=== PATIENT | male | born 1960 | race Caucasian/White ===

== ENCOUNTER 2024-05-10 12:54 | Inpatient (IN) | payer MEDICARE, SELFPAY ==
[2024-05-10] VITALS (30 sets, daily range): BP systolic 115–176; BP diastolic 69–159; PULSE 84–170; RESP 18–30; TEMP 36.4–36.6; O2SAT 83–99; BMI 38.9
--- NOTE | ~2024-05-10 | CT_ITS ---
CTA chest PE protocol Ordering provider: Albert Moyer History: 63 years Male with . afib rvr, hx PE . Comparison: None. Technique: CT angiogram chest was performed following timed intravenous injection of contrast. Thin s lice axial images and reformatted coronal images were obtained. Three dimensional reformatted images of the chest were also obtained using a [employer] workstation. . Automated exposure control and iterati ve reconstruction technique were employed. The dose-length product was 923.51 mGy-cm. 100 MLO Omnipaq ue 350 was given IV. Findings: PULMONARY ARTERIES: No pulmonary embolus. VISUALIZED THORACIC INLET: Normal. MEDIASTINUM: Aorta/coronary arteries: Mild atheromatous disease. Heart/other: The heart is not enlarged. Lymph nodes: Precarinal lymphadenopathy is seen with the largest measures 2 cm. Prevascular lymph nod es are also noted with the largest measures 1.8 cm. LUNGS: Moderate bilateral pleural effusion with adjacent atelectasis. No pulmonary nodules or masses. Focal areas of infiltrate seen in the left lower lobe laterally suggestive of pneumonia. Follow-up advised. . No pneumothorax. VISUALIZED UPPER ABDOMEN: the visualized upper abdomen is normal. MUSCULOSKELETAL: Soft tissues: The superficial soft tissues are normal. Bones: Age appropriate degenerative changes of the spine. IMPRESSION: 1. No pulmonary embolism. 2. Mediastinal lymphadenopathy. Clinical correlation advised. 3. Bilateral pleural effusion with adjacent atelectasis. Focal area of pneumonia in the left lower l obe laterally. Reviewed, dictated and finalized at location A. IMPRESSION: 1. No pulmonary embolism. 2. Mediastinal lymphadenopathy. Clinical correlation advised. 3. Bilateral pleural effusion with adjacent atelectasis. Focal area of pneumon ia in the left lower lobe laterally.
--- NOTE | ~2024-05-10 | US_ITS ---
BILATERAL LOWER EXTREMITY VENOUS ULTRASOUND Ordering provider: Albert Moyer MD History: . leg swelling, hx PE . Comparison: None. FINDINGS: RIGHT LOWER EXTREMITY VEINS: --COMMON FEMORAL: Patent and free of thrombus. Normal compressibility, phasic flow and augmentation. --PROXIMAL SUPERFICIAL FEMORAL: Patent and free of thrombus. Normal compressibility, phasic flow and augmentation. --DISTAL SUPERFICIAL FEMORAL: Patent and free of thrombus. Normal compressibility, phasic flow and au gmentation. --POPLITEAL: Patent and free of thrombus. Normal compressibility, phasic flow and augmentation. --POSTERIOR TIBIAL: Patent and free of thrombus. Normal compressibility, phasic flow and augmentation . LEFT LOWER EXTREMITY VEINS: --COMMON FEMORAL: Patent and free of thrombus. Normal compressibility, phasic flow and augmentation. --PROXIMAL SUPERFICIAL FEMORAL: Patent and free of thrombus. Normal compressibility, phasic flow and augmentation. --DISTAL SUPERFICIAL FEMORAL: Patent and free of thrombus. Normal compressibility, phasic flow and au gmentation. --POPLITEAL: Patent and free of thrombus. Normal compressibility, phasic flow and augmentation. --POSTERIOR TIBIAL: Patent and free of thrombus. Normal compressibility, phasic flow and augmentation . Bilateral Chisholm's cyst measuring 3.8x 1.5 x 1.3 cm on the right side and 6.1x. IMPRESSION: Negative bilateral lower extremity venous US. No deep vein thrombosis. Bilateral Chisholm's cyst. Reviewed, dictated and finalized at location A.
--- NOTE | ~2024-05-10 | XR_ITS ---
XR chest 1V portable Ordering provider: Jeffy Ge MD History: 63 years Male with . fluid overload . Comparison: May 10, 2024 FINDINGS: MEDIASTINUM: The cardiac silhouette is not enlarged. Congestive kathia. LUNGS: No effusions or pneumothorax. Bilateral interstitial changes which may indicate pulmonary eren a versus pneumonitis. OTHER: No free air under the diaphragm. IMPRESSION: Bilateral interstitial changes which may indicate pneumonitis versus pulmonary edema. Clinical correl ation advised. Reviewed, dictated and finalized at location A. IMPRESSION: Bilateral interstitial changes which may indicate pneumonitis versus pulmonary edema. Clinical correlation advised.
--- NOTE | ~2024-05-10 | XR_ITS ---
XR chest 2V Ordering provider: Alexsander Dick MD History: 63 years Male with . sob . Comparison: None. FINDINGS: MEDIASTINUM: The cardiac silhouette is slightly enlarged. Congestive kathia. LUNGS: No effusions or pneumothorax. Bilateral interstitial thickening. OTHER: No free air under the diaphragm. Degenerative changes of the spine. IMPRESSION: Cardiomegaly with cardiac decompensation and pulmonary edema. Pneumonitis is not excluded. Reviewed, dictated and finalized at location A. IMPRESSION: Cardiomegaly with cardiac decompensation and pulmonary edema. Pneumonitis is no t excluded.
--- NOTE | 2024-05-10 13:27 | ECG_ITS ---
Test Date: 2024-05-10 13:31:10 Measurements Intervals [place] Rate: 150 P: 0 ND: 0 QRS: 72 QRSD: 103 T: 66 QT: 295 QTc: 466 Interpretive Statements ATRIAL FLUTTER/TACHYCARDIA WITH RAPID VENTRICULAR RESPONSE WITH ABERRANT CONDUCTION OR VENTRICULAR PREMATURE COMPLEXES No previous ECG available for comparison Electronically Signed On 05-10-2024 15:06:48 CDT by Ravi Andujar M.D.
[2024-05-10 13:45] LABS: Basophils Percent Auto 0.6 % (0.2-1.2); Eosinophils Absolute Auto 0.3 K/mm3 (0-0.3); Eosinophils Percent Auto 3.6 % (0-4.4); Hematocrit 37.5 % (42.0-52.0); Hemoglobin 12.2 g/dL (14.0-18.0); Immature Granulocyte Absolute 0.02 K/mm3 (0.00-0.031); Immature Granulocyte Percent A 0.3 % (0-0.5); Lymphocytes Absolute Auto 1.34 K/mm3 (0.9-3.2); Lymphocytes Percent Auto 19.2 % (18.3-44.2); Mean Corpuscular HGB Conc 32.5 g/dl (32-36); Mean Corpuscular Hemoglobin 32.6 pg (26-34); Mean Corpuscular Volume 100.3 fl (80-100); Mean Platelet Volume 9.7 fl (7.4-10.4); Monocytes Absolute Auto 0.5 K/mm3 (0.1-0.6); Monocytes Percent Auto 7.2 % (2.6-8.5); Neutrophils Absolute Auto 4.8 K/mm3 (1.3-6.7); Neutrophils Percent Auto 69.1 % (45.5-73.1); Platelet Count Result 199 k/mm3 (150-375); Red Blood Count 3.74 M/mm3 (4.6-6.20); Red Cell Distribution Width 13.8 % (11.5-14.5)
[2024-05-10 13:58] LABS: Alanine Aminotransferase 70 U/L (6-50); Alkaline Phosphatase 57 U/L (38-126); Anion Gap 10 mmol/L (4-12); Aspartate Amino Transferase 30 U/L (17-59); Bilirubin,Total 0.3 mg/dL (0.2-1.3); Blood Urea Nitrogen 19 mg/dL (9-20); Calcium 9.5 mg/dL (8.4-10.2); Carbon Dioxide 25 mmol/L (22-30); Chloride 104 mmol/L (98-107); Estimated CRCL calculation 103 ml/min; Estimated Glomerular Filt Rate > 60; Glucose 119 mg/dL (65-110); Potassium 4.5 mmol/L (3.4-5.0); Sodium 139 mmol/L (137-145)
--- NOTE | 2024-05-10 14:03 | ED_ITS ---
HPI - SOB/Dyspnea General Chief Complaint: Shortness of Breath/Dyspnea Stated Complaint: c/o dyspnea, swelling and cough Time Seen by Provider: 05/10/24 13:32 History of Present Illness HPI Narrative: 63-year-old male presenting to the emergency department for evaluation of shortness of breath and exertional dyspnea. Patient has a remote history of a provoked pulmonary embolism but presently not taking anticoagulation medications. No history of DVT. No history of heart failure or coronary disease to his knowledge. He states for last week he has been having exertional dyspnea and feelings when to pass out with minimal exertion. In triage patient is noted have a normal pulse rate however rapidly converted to what appears to be atrial fibrillation/atrial flutter with rapid ventricular response. He was brought back to room 5 for treatment and evaluation as a medical resuscitation at this time. Patient denies any chest pain, no vision changes, nausea, vomiting, abdominal pain, back pain. He endorses left leg swelling for the last week. Not presently taking anticoagulation medications. Related Data Home Medications ?Medication ?Instructions ?Recorded ?Confirmed ?Last Taken ?Type No Home Medications 05/10/24 05/10/24 Unknown History Allergies Allergy/AdvReac Type Severity Reaction Status Date / Time No Known Allergies Allergy Verified 05/10/24 13:50 Review of Systems 2 Review of Systems: As reviewed above in HPI [facility] Family History Family History (Updated 05/10/24 @ 20:49 by Kathleen Phillips RN) Father History of heart artery stent Social History Social History Smoking status: Current every day smoker Smokeless tobacco user: other Additional smoking assessment comments: Marijuana Alcohol intake: former Substance use: former Do You Feel Safe in your Home?: Yes Lack of Transportation: No Lack of Food: Never True Current Housing: I Have Housing Concerned About Future Housing: No Difficulty Paying Gas/Electric Bills: No Difficulty Paying for Meds: No Currently Unemployed: No Education: Trade/Vocational Certificate Difficulty w/ Childcare or Family Care: No Spiritual care concerns: No Exam 2 Narrative: GENERAL: [Well-appearing, well-nourished, and in no acute distress.] HEAD: [Normocephalic, atraumatic.] EYES: [PERRLA and EOMI.] ENT: Nares clear, no rhinorrhea or epistaxis. Mucous membranes moist. NECK: Supple. CHEST: Coarse bibasilar breath sounds, mild tachypnea, no wheezing or prolonged expiratory phase. HEART: Tachycardic rate with a regular rhythm. No murmur heard. [Normal peripheral pulses.] ABDOMEN: [Soft, nondistended], [nontender], [No rigidity or guarding] EXTREMITIES: Normal range of motion. Left lower extremity edema 2+ pitting compared to the right 1+ pitting SKIN: Warm, dry, no rash. NEURO: [No focal deficits]. Alert and oriented [x3.] PSYCH: [Normal mood and affect.] Course Vital Signs Vital signs: Vital Signs Temperature 36.5 C 05/10/24 13:09 Pulse Rate 84 05/10/24 13:09 Respiratory Rate 26 H 05/10/24 13:09 Blood Pressure 144/96 H 05/10/24 13:09 Pulse Oximetry 98 05/10/24 13:09 Oxygen Delivery Room Air 05/10/24 13:09 Temperature 36.6 C 05/10/24 20:36 Pulse Rate 117 H 05/10/24 21:06 Respiratory Rate 18 05/10/24 20:36 Blood Pressure 115/69 05/10/24 20:36 Pulse Oximetry 96 05/10/24 20:36 Oxygen Delivery Room Air 05/10/24 13:45 Procedures Other Procedure Procedure 1: Other Procedure: Procedure: Bedside echocardiogram Indication: New onset heart failure Narrative: For different views of the cardiac chambers were obtained including parasternal long, parasternal short, subxiphoid and apical four-chamber. Patient has a severely reduced ejection fraction globally of approximately 20% give her a take. No pericardial effusions. No right ventricular bowling. Plethoric and noncollapsible IVC. Procedure 2: Other Procedure: Procedure: Thoracic ultrasound Indication: New onset heart failure Narrative: Bilateral chest cavity ultrasound obtained with views of sub diaphragmatic space and phrenic space. Pleural effusions were identified bilaterally with potential infectious consolidation appearance in the left chest cavity. B-lines were appreciated throughout bilateral lung plasencia consistent with pulmonary edema. No signs of pneumothorax, lung sliding present bilaterally. MDM - SOB/Dyspnea MDM Narrative Medical decision making narrative: 63-year-old male with past medical history including provoked pulmonary embolism currently not taking anticoagulation, no history of coronary disease, congestive heart failure. Patient presents with exertional dyspnea and shortness a breath as well as presyncope. He is found to be in atrial flutter with 2-1 response rapid ventricular. On examination he is otherwise well-appearing but slightly tachypneic. Not any acute distress, mentating appropriately. No chest pain. He has lower extremity edema left worse than right, no signs of cellulitis. Coarse breath sounds. Bedside echocardiogram shows a severely reduced ejection fraction about 15% globally, distended plethoric IVC, no respiratory variation. No pericardial effusion. No right ventricular strain noted. Given his severely reduced ejection fraction and rapid ventricular response heart rate considerations for amiodarone load at this time. Amnio bolus and infusions ordered, heparin drip ordered. Considerations presently are for new onset congestive heart failure, fluid overload, pulmonary embolism, paroxysmal atrial fibrillation/atrial flutter. Low suspicion acute aortic syndrome or acute coronary syndrome. Serial troponins, BNP, chest x-ray, EKG, CT angiography ordered. Consult was placed to Cardiology Dr. Andujar and we discussed patient's case over the phone with recommendations to continue heparin and amiodarone while workup underway. Patient placed on classroom monitor and re-evaluated frequently. Doppler ultrasound of his lower extremities also ordered and TSH added. Patient's workup reveals no leukocytosis, hemoglobin of 12.2 with no baseline. Normal platelet count. Coagulation panel within normal limits. Normal electrolytes, normal LFTs, normal renal function. Normal glucose. Troponin elevation of 0.062, slight elevation on repeat 3 hour 0.064. BNP elevated to 2190 consistent with his heart failure symptoms. Normal TSH. CT angiography shows no PE, some mediastinal lymphadenopathy which is nonspecific. Bilateral pleural effusions and a focal area pneumonia left lower lobe. Patient started on community-acquired antibiotic coverage including doxycycline and Rocephin. Patient's Doppler ultrasound shows Chisholm's cysts but no evidence of DVT. Chest x-ray shows cardiomegaly with cardiac decompensation pulmonary edema consistent with his physical exam findings and history. Patient received bolus doses of amiodarone after consultation with Cardiology. Maintenance infusion of amiodarone started. Patient's heart rate slowly came down during the next several hours here in the emergency department and he was now however in the 120-130 pulse rate. Repeat EKG shows atrial flutter with a heart rate of 112, no ST segment elevations or depressions. Patient frequent re-evaluated with improvement in symptoms after rate control. Remain in atrial fibrillation/atrial flutter. He was started on appropriate antibiotic coverage for his pneumonia, given Lasix for his decompensated new onset heart failure, consults were placed and patient was admitted to the hospital under the intermediate care unit. Spoke to the hospitalist team currently being covered by the midlevel provider and patient was accepted to the hospital at this time. Medical Records Attestation: I reviewed the patient's medical records. Lab Data Attestation: I reviewed the patient's lab results. 05/10/24 13:40 05/10/24 13:40 Labs: Lab Results 05/10/24 05/10/24 Range/Units 13:40 15:45 WBC 7.0 (4.5-10.0) K/mm3 RBC 3.74 L (4.6-6.20) M/mm3 Hgb 12.2 L (14.0-18.0) g/dL Hct 37.5 L (42.0-52.0) % MCV 100.3 H (80-100) fl MCH 32.6 (26-34) pg MCHC 32.5 (32-36) g/dl RDW 13.8 (11.5-14.5) % Plt Count 199 (150-375) k/mm3 MPV 9.7 (7.4-10.4) fl Immature Gran % (Auto) 0.3 (0-0.5) % Neut % (Auto) 69.1 (45.5-73.1) % Lymph % (Auto) 19.2 (18.3-44.2) % Coal % (Auto) 7.2 (2.6-8.5) % Eos % (Auto) 3.6 (0-4.4) % Baso % (Auto) 0.6 (0.2-1.2) % Lymph # (Auto) 1.34 (0.9-3.2) K/mm3 Coal # (Auto) 0.5 (0.1-0.6) K/mm3 Eos # (Auto) 0.3 (0-0.3) K/mm3 Baso # (Auto) 0.0 (0.0-0.1) K/mm3 Abs Immat Gran (auto) 0.02 (0.00-0.031) K/mm3 Absolute Neuts (auto) 4.8 (1.3-6.7) K/mm3 Absolute Nucleated RBC 0.000 (0.0-0.012) K/mm3 Nucleated RBC % 0.0 (0.0-0.2) % PT 13.4 (11.1-14.7) Seconds INR 1.0 APTT 26.9 (22.3-36.8) Seconds Sodium 139 (137-145) mmol/L Potassium 4.5 (3.4-5.0) mmol/L Chloride 104 (98-107) mmol/L Carbon Dioxide 25 (22-30) mmol/L Anion Gap 10 (4-12) mmol/L BUN 19 (9-20) mg/dL Creatinine 0.97 (0.7-1.3) mg/dL Estim Creat Clear Calc 103 ml/min Estimated GFR > 60 (59 - ) Glucose 119 H (65-110) mg/dL Calcium 9.5 (8.4-10.2) mg/dL Total Bilirubin 0.3 (0.2-1.3) mg/dL AST 30 (17-59) U/L ALT 70 H (6-50) U/L Alkaline Phosphatase 57 (38-126) U/L Troponin I 0.062 H* 0.064 H* (0.000-0.034) ng/mL NT-Pro-B Natriuret Pep 2190 H (19.9-100) pg/mL Total Protein 7.0 (6.3-8.2) g/dL Albumin 4.0 (3.5-5.1) g/dL TSH (Reflex) 1.860 (0.465-4.68) uIU/mL Imaging Data Attestation: I personally reviewed and interpreted this imaging study as follows: My impression: Impressions Chest CTA 05/10/24 14:19 IMPRESSION: 1. No pulmonary embolism. 2. Mediastinal lymphadenopathy. Clinical correlation advised. 3. Bilateral pleural effusion with adjacent atelectasis. Focal area of pneumonia in the left lower lobe laterally. Venous Doppler Study 05/10/24 14:50 IMPRESSION: Negative bilateral lower extremity venous US. No deep vein thrombosis. Bilateral Chisholm's cyst. Chest X-Ray 05/10/24 14:54 IMPRESSION: Cardiomegaly with cardiac decompensation and pulmonary edema. Pneumonitis is not excluded. Critical Care Time Critical Care Time Critical Care Time: Yes Total Critical Care Time: 105 (Critical care time is exclusive of the separately billed procedures above) Discharge Plan Discharge Clinical Impression: Acute decompensated heart failure, Community acquired pneumonia, New onset of congestive heart failure, Atrial flutter with rapid ventricular response, Bilateral pleural effusion, Acute dyspnea, Non-STEMI (non-ST elevated myocardial infarction) Patient Disposition: Still a Patient Condition: Serious Time of Disposition: 17:11
--- NOTE | 2024-05-10 14:09 | PC.NURSE ---
RN attempted to give meds. Cat scan wheeled pt for scans. Will give meds upon arrival back to rm 5.
--- OUTSIDE RECORDS SUMMARY | 2024-05-10 14:12 | XMS_ITS | Patient Health Record ---
[facility] Organization [facility] Address [address] [place] [address] Care Team Providers Care Magento Web Developer Name Role Phone Bal Gibbs Primary Care Provider Reason For Referral No Information Medications Medication SIG (Take, Route, Frequency, Duration) Notes Start Date End Date Status hydrOXYzine Pamoate 100 MG Orally Active Gabapentin 600 MG 1 tablet Orally Once a day Active Multi Complete - Orally Act marina Folic Acid 800 MCG 1 tablet Orally Once a day Active traZODone HCl 50 MG 1-2 tablet Orally at bedtime as needed for 30 day(s) 05/29/2017 Active Thiamine HCl 100 MG 1 tablet Orally Once a day Active Naltrexone HCl 50 MG 1 tablet Orally Onc e a day for 07 days 05/29/2017 Active Social History Alcohol Screen (Audit-C) Question Answer Notes Did you have a drink containing alcohol in the p ast year? 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
[2024-05-10 14:13] LABS: Prothrombin Time 13.4 Seconds (11.1-14.7)
--- NOTE | 2024-05-10 14:13 | PC.NURSE ---
RN spoke to pt friend Shanell and agreed to contact her with pt changes.
[2024-05-10 14:14] LABS: Partial Thromboplastin Time 26.9 Seconds (22.3-36.8)
--- NOTE | 2024-05-10 14:29 | PC.NURSE ---
Pt taken to CT scan, XR and US at this time
[2024-05-10 14:41] LABS: NT Pro B Type Natriuretic Pept 2190 pg/mL (19.9-100); Troponin I 0.062 ng/mL (0.000-0.034)
[2024-05-10] MEDS: AMIODARONE 150 MG/D5W 100 ML 150 MG/100 ML BAG 600 MG IV CONT ×3 (15:13→16:26)
[2024-05-10] MEDS: AMIODARONE 360 MG/D5W 200 ML 360 MG/200 ML BAG 33.33 MG IV CONT (15:36)
[2024-05-10] MEDS: FUROSEMIDE INJ 40 MG/4 ML VIAL IV PUSH (15:36)
[2024-05-10] MEDS: HEPARIN SODIUM 5,000 UNITS/ML VIAL 8500 UNITS IV PUSH ×2 (15:47→22:44)
[2024-05-10] MEDS: HEPARIN SOD/D5W 100 UNITS/ML 25,000 UNITS/250 ML BAG 15 UNITS IV CONT (15:50)
[2024-05-10] MEDS: DOXYCYCLINE HYCLATE 100 MG TABLET PO (15:57)
[2024-05-10 16:16] LABS: Troponin I 0.064 ng/mL (0.000-0.034)
--- OUTSIDE RECORDS SUMMARY | 2024-05-10 17:02 | XMS_ITS | Referral Summary ---
Author Organization [facility] Address [address] [place] [address] Care Team Providers Care Fuel Conversion Technician Name Role Phone Fitz Cardona Primary Care Provider + Allergies No known active allergies Medications Ventolin HFA 90 mcg/actuation inhaler INL 2 PFS PO TID UTD 04/18/2019 Active lisinopril-hydr oCHLOROthiazide (ZESTORETIC) 10-12.5 mg per tablet 05/11/2019 Active omeprazole (PriLOSEC) 20 mg capsule TK 1 C PO BID 30 MINUTES B MEALS 04/18/2019 Active Active Problems Problem Noted Date Diagnosed Date Opioid withdrawal 06/03/2017 Irritability and anger 01/09/2014 Overview (06/05/2016): Irritability and anger Hypertension 01/09/2014 Overview (06/05/2016): Hypertension Low back pain 01/09/2014 Overview (06/05/2016): Lumbago Immunizations Immunization Administration Dates Next Due Influenza, Quadrivalent, Spl it, Preservative Free, Intramuscular 01/02/2017 Influenza, Split 03/15/2013 Influenza, Trivalent, Split, Preservative Free, Intradermal 01/09/2014 Social History Tobacco Use Types Packs/Day Years Used Date Smoking Tobacco: Never Smokeless Tobacco: Never Alcohol Use Standard Drinks/Week Comments No 0 (1 standard drink = 0.6 oz pur e alcohol) hasnt drank in 2 years Sex and Gender Information Value Date Recorded Sex Assigned at Not on file 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 Gender Identity Not on file Sexual Orientation Not on file Last Filed Vital Signs Vital Sign Reading Time Taken Comments Blood Pressure 165/93 06/06/2017 8:33 AM CDT Pulse 88 06/06/2017 8:33 AM CDT Temperature 35.6 C (96.1 F) 06/06/2017 8:33 AM CDT Respiratory Rate 17 06/06/2017 8:33 AM CDT Oxygen Saturation 99% 06/06/2017 8:33 AM CDT Inhaled Oxygen Concentration - - Weight 142.9 kg (315 lb) 05/16/2019 8:41 AM CDT Height 188 cm (6' 2 ) 05/16/2019 8:41 AM CDT Body Mass Index 40.44 05/16/2019 8:41 AM CDT Plan of Treatment Not on file Insurance [place] [address] [address] [place] [address] MEDICARE Advance Directives For more information, please contact: [phone] * Full Code (Latest Code Status on File) Date Activated Date Inactivated Comments 06/03/2017 2:00 PM 06/06/2017 11:37 AM Care Teams Fuel Conversion Technician Relationship Specialty Start Date End Date Fitz Cardona PA [address] [place] [address] PCP - General Internal Medicine 04/11/19
--- OUTSIDE RECORDS SUMMARY | 2024-05-10 17:02 | XMS_ITS | Clinical Summary ---
Author Organization [facility] Address [address] [place] [address] Care Team Providers Care Slab Installer Name Role Phone Fitz Cardona Primary Care [...] Influenza, Trivalent, Split, Preservative Free, Intradermal 01/09/2014 Surgical History Surgery Date Site/Laterality Comments KNEE SURGERY 1998 Knee surgery HAND SURGERY hand surgery KNEE ARTHROSCOPY 2002 Right Arthroscopy knee Medical History Medical History Date Comments Hx Other Medical Right hand erasto nstruction 2nd 3rd digit. Hypertension Hypertension Hyperlipidemia Hyperlipidemia Osteoarthritis Osteoarthritis Family History Medical History Relation Name Comments Bladder Cancer Father Cancer, bladd er; Heart disease Father Memory loss Father COPD Mother COPD; Cancer Mother Lung cancer Mother Cancer -lung; C ause of : Cancer -lung Cancer Other 1 Family history of Cancer; Diabetes Other 2 Family history of Diabetes mellitus; Heart disease Other 3 Family history of Heart disease; Hypertension Other 4 Family history of Hypertension; Osteoarthritis Other 5 Family histor y of Osteoarthritis; Relation Name Status Comments Father Mother (Age 56) Other 1 Other 2 Other 3 Other 4 Other 5 Social History Tobacco Use Types Packs/Day Years Used Date Smoking Tobacco: Never Smokeless Tobacco: Never Alcohol Use Standard Drinks/Week Comments No 0 (1 standard drink = 0.6 oz pur e alcohol) hasnt drank in 2 years Sex and Gender Information Value Date Recorded Sex Assigned at Not on file 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
--- OUTSIDE RECORDS SUMMARY | 2024-05-10 17:02 | XMS_ITS | CONTINUITY OF CARE DOCUMENT ---
Author Name aj rocha Address Unknown Organization [facility] Address [address] [place] [address] Phone [phone] Care Team Providers Care Systems Programmer Name Role Phone Kel Stroud MD Unavailable [phone] Kel Stroud MD Unavailable [phone] INSURANCE PROVIDERS Payer name Policy type / Coverage type [place] red green party ID HUMANA PPO O [id number]
--- NOTE | 2024-05-10 17:11 | ECG_ITS ---
Test Date: 2024-05-10 18:21:26 Measurements Intervals [place] Rate: 112 P: 0 [place]: 0 QRS: 70 QRSD: 110 T: 72 QT: 344 QTc: 470 Interpretive Statements ATRIAL FLUTTER/TACHYCARDIA WITH RAPID VENTRICULAR RESPONSE WITH ABERRANT CONDUCTION OR VENTRICULAR PREMATURE COMPLEXES Compared to ECG 05/10/2024 13:31:10 No significant changes Electronically Signed On 05-11-2024 13:23:16 CDT by Ravi Andujar M.D.
--- NOTE | 2024-05-10 18:54 | PC.NURSE ---
Patient arrived from [facility]/. Tele applied. Admission started.
--- OUTSIDE RECORDS SUMMARY | 2024-05-10 18:54 | XMS_ITS | CONTINUITY OF CARE DOCUMENT ---
Author Name aj rocha Address Unknown Organization [facility] Address [address] [place] [address] Phone [phone] Care Team Providers Care Out Patient Therapist Name Role Phone Kel Stroud MD Unavailable [phone] Kel Stroud MD Unavailable INSURANCE PROVIDERS Payer name Policy type / Coverage type [place] red green party ID HUMANA PPO O [id number]
--- OUTSIDE RECORDS SUMMARY | 2024-05-10 18:54 | XMS_ITS | Clinical Summary ---
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
--- OUTSIDE RECORDS SUMMARY | 2024-05-10 18:54 | XMS_ITS | CONTINUITY OF CARE DOCUMENT ---
Author Name aj rocha Address Unknown Organization [facility] Address [address] [place] [address] Phone [phone] Care Team Providers Care Medical Technologist Generalist Name Role Phone Kel Stroud MD Unavailable [phone] Kel Stroud MD Unavailable [phone] INSURANCE PROVIDERS Payer name Policy type / Coverage type [place] red green party ID HUMANA PPO O [id number]
--- OUTSIDE RECORDS SUMMARY | 2024-05-10 18:54 | XMS_ITS | Referral Summary ---
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
[2024-05-10] MEDS: AMIODARONE 360 MG/D5W 200 ML 360 MG/200 ML BAG 16.67 MG IV CONT (21:06)
[2024-05-10] MEDS: IPRATROPIUM 0.5 MG/ALBUTEROL SULFATE 2.5 MG AMPUL.NEB 3 ML INHALATION (21:25)
[2024-05-10 22:29] LABS: Partial Thromboplastin Time 45.8 Seconds (22.3-36.8)
[2024-05-11] VITALS (30 sets, daily range): BP systolic 94–163; BP diastolic 36–98; PULSE 112–147; RESP 16–26; TEMP 36.4–36.9; O2SAT 93–100
[2024-05-11] MEDS: IPRATROPIUM 0.5 MG/ALBUTEROL SULFATE 2.5 MG AMPUL.NEB 3 ML INHALATION (02:30)
--- NOTE | 2024-05-11 03:21 | P.HP_ITS ---
H&P: HPI History of Present Illness Date/Time: 05/11/24 03:21 Chief Complaint: Shortness of breath/dyspnea Narrative: This is a 63-year-old male with a significant past medical history of hyperlipidemia, hypertension, asthma, kidney stones, arthritis who presented to the hospital with complaints of shortness of breath and dyspnea. Patient states that for the last week he has had dyspnea with exertion and feeling like he was going to pass out. He has not taken any of his home medications and at least 3 weeks as he was getting this as a mail order [facility] the [facility] and it became too much of a hassle. Workup in the hospital included chest CTA which was negative for PE, mediastinal lymphadenopathy, bilateral pleural effusion with adjacent atelectasis, focal area of pneumonia in the left lower lobe laterally. Bilateral venous Doppler was negative for DVT however did show bilateral Chisholm cyst. Chest x-ray showed cardiomegaly with cardiac decompensation and pulmonary edema, pneumonitis is not excluded. Initial labs showed a normal white blood cell count of 7.0, hemoglobin 12.2, INR 1.0, ALT 70, troponin 0.064> 0.068, proBNP 2190, TSH 1.860. EKG showed atrial flutter with RVR with a rate of 150, QTC 466. Patient was given an amiodarone bolus and started on amiodarone infusion along with heparin infusion, given 40 mg of Lasix, Rocephin, doxycycline, and Xopenex nebulized breathing treatment while in the ED. cardiology was consulted. Review of Systems Review of Systems: All systems reviewed & are unremarkable except as noted in HPI and below PMFSH Past Medical History Medical History Asthma Arthritis Kidney stones Hyperlipidemia Hypertension Surgical History Surgical History H/O knee surgery Family History Family History Father History of heart artery stent Social History Social History Smoking status: Current every day smoker Smokeless tobacco user: other Additional smoking assessment comments: Marijuana Alcohol intake: former Substance use: former Do You Feel Safe in your Home?: Yes Lack of Transportation: No Lack of Food: Never True Current Housing: I Have Housing Concerned About Future Housing: No Difficulty Paying Gas/Electric Bills: No Difficulty Paying for Meds: No Currently Unemployed: No Education: Trade/Vocational Certificate Difficulty w/ Childcare or Family Care: No Spiritual care concerns: No Meds Home Medications and Allergies Home Medications ?Medication ?Instructions ?Recorded ?Confirmed ?Type No Home Medications 05/10/24 05/10/24 History Allergies Allergy/AdvReac Type Severity Reaction Status Date / Time No Known Allergies Allergy Verified 05/10/24 13:50 Vital Signs Vital Signs - 24 hr 05/10/24 13:09 05/10/24 13:25 05/10/24 13:36 Temperature 97.7 F Pulse Rate 84 151 H Respiratory Rate 26 H 28 H Blood Pressure 144/96 H 126/102 H Pulse Oximetry 98 99 95 Oxygen Delivery Room Air Room Air Fraction of Inspired Oxygen 05/10/24 13:45 05/10/24 14:01 05/10/24 14:12 Temperature 98 F Pulse Rate 150 H 149 H 150 H Respiratory Rate 23 H 30 H Blood Pressure 131/96 H 131/91 H Pulse Oximetry 95 97 Oxygen Delivery Room Air Fraction of Inspired Oxygen 05/10/24 15:13 05/10/24 15:18 05/10/24 15:18 Temperature Pulse Rate 147 H 151 H 151 H Respiratory Rate Blood Pressure Pulse Oximetry Oxygen Delivery Fraction of Inspired Oxygen 05/10/24 15:36 05/10/24 15:48 05/10/24 15:59 Temperature Pulse Rate 144 H 141 H 148 H Respiratory Rate 30 H Blood Pressure 132/114 H 141/89 H Pulse Oximetry 94 Oxygen Delivery Fraction of Inspired Oxygen 05/10/24 16:00 05/10/24 16:26 05/10/24 16:54 Temperature Pulse Rate 142 H 148 H 145 H Respiratory Rate 20 Blood Pressure 141/89 H 144/99 H Pulse Oximetry 95 Oxygen Delivery Fraction of Inspired Oxygen 05/10/24 17:06 05/10/24 17:48 05/10/24 18:03 Temperature Pulse Rate 145 H 123 H 127 H Respiratory Rate 21 H 20 Blood Pressure 145/124 H 176/159 H Pulse Oximetry 83 L Oxygen Delivery Fraction of Inspired Oxygen 05/10/24 18:13 05/10/24 18:13 05/10/24 18:36 Temperature 97.6 F Pulse Rate 130 H 130 H 113 H Respiratory Rate 20 20 18 Blood Pressure 124/77 124/77 120/75 Pulse Oximetry 95 95 95 Oxygen Delivery Fraction of Inspired Oxygen 05/10/24 20:00 05/10/24 20:00 05/10/24 20:00 Temperature Pulse Rate 170 H 110 H Respiratory Rate Blood Pressure Pulse Oximetry Oxygen Delivery Room Air Fraction of Inspired Oxygen 05/10/24 20:36 05/10/24 21:06 05/10/24 21:06 Temperature 97.9 F Pulse Rate 170 H 117 H 117 H Respiratory Rate 18 Blood Pressure 115/69 Pulse Oximetry 96 Oxygen Delivery Fraction of Inspired Oxygen 05/10/24 21:26 05/10/24 21:33 05/10/24 21:40 Temperature Pulse Rate 147 H 147 H 136 H Respiratory Rate 20 20 Blood Pressure Pulse Oximetry 95 Oxygen Delivery Room Air Fraction of Inspired Oxygen 21 05/10/24 21:56 05/10/24 22:00 05/10/24 22:06 Temperature Pulse Rate 126 H 126 H 131 H Respiratory Rate Blood Pressure 146/79 H Pulse Oximetry Oxygen Delivery Fraction of Inspired Oxygen 05/10/24 23:35 05/10/24 23:38 05/10/24 23:46 Temperature 97.9 F Pulse Rate 138 H 134 H Respiratory Rate 18 Blood Pressure 134/88 Pulse Oximetry 94 Oxygen Delivery Room Air Fraction of Inspired Oxygen 05/11/24 00:00 05/11/24 02:00 05/11/24 02:00 Temperature Pulse Rate 117 H 126 H 118 H Respiratory Rate Blood Pressure 138/53 L Pulse Oximetry Oxygen Delivery Fraction of Inspired Oxygen 05/11/24 02:18 05/11/24 02:30 05/11/24 02:42 Temperature Pulse Rate 125 H 120 H 120 H Respiratory Rate 20 20 Blood Pressure Pulse Oximetry Oxygen Delivery Fraction of Inspired Oxygen Exam Narrative: General: In no acute distress, well nourished Head: atraumatic, no encephalopathy Eyes: PERRLA, sclera clear ENT: moist mucous membranes, nasal passages clear Neck: supple, no JVD, no adenopathy, trachea midline Cardiac: Normal S1 and S2. Irregular rate and rhythm, No murmur, gallops or friction rubs, peripheral pulses intact. Respiratory: Lungs clear to auscultation, no adventitious lung sounds, currently on room air Gastrointestinal: soft, non-distended, non-tender, normoactive bowel sounds. : voiding without difficulty. Extremities: moves all extremities well, no edema Skin: clean, dry, intact. No wounds or lesions. Neuro: Alert to voice and oriented x4, cranial nerves intact, no neuro deficits. H&P: Results Labs Labs: Short CBC 05/10/24 Range/Units 13:40 WBC 7.0 (4.5-10.0) K/mm3 Hgb 12.2 L (14.0-18.0) g/dL Hct 37.5 L (42.0-52.0) % Plt Count 199 (150-375) k/mm3 BMP 05/10/24 13:40 Sodium 139 Potassium 4.5 Chloride 104 Carbon Dioxide 25 BUN 19 Creatinine 0.97 Glucose 119 H Calcium 9.5 Cardiac Enzymes 05/10/24 05/10/24 05/10/24 Range/Units 13:40 15:45 22:13 Troponin I 0.062 H* 0.064 H* 0.068 H* (0.000-0.034) ng/mL Liver Function 05/10/24 Range/Units 13:40 Total Bilirubin 0.3 (0.2-1.3) mg/dL AST 30 (17-59) U/L ALT 70 H (6-50) U/L Alkaline Phosphatase 57 (38-126) U/L Albumin 4.0 (3.5-5.1) g/dL Imaging Chest CTA: Radiologist's impression: CTA chest PE protocol Ordering provider: Albert Moyer History: 63 years Male with . afib rvr, hx PE . Comparison: None. Technique: CT angiogram chest was performed following timed intravenous injection of contrast. Thin slice axial images and reformatted coronal images were obtained. Three dimensional reformatted images of the chest were also obtained using a [employer] workstation. . Automated exposure control and iterative reconstruction technique were employed. The dose-length product was 923.51 mGy- cm. 100 MLO Omnipaque 350 was given IV. Findings: PULMONARY ARTERIES: No pulmonary embolus. VISUALIZED THORACIC INLET: Normal. MEDIASTINUM: Aorta/coronary arteries: Mild atheromatous disease. Heart/other: The heart is not enlarged. Lymph nodes: Precarinal lymphadenopathy is seen with the largest measures 2 cm. Prevascular lymph nodes are also noted with the largest measures 1.8 cm. LUNGS: Moderate bilateral pleural effusion with adjacent atelectasis. No pulmonary nodules or masses. Focal areas of infiltrate seen in the left lower lobe laterally suggestive of pneumonia. Follow-up advised.. No pneumothorax. VISUALIZED UPPER ABDOMEN: the visualized upper abdomen is normal. MUSCULOSKELETAL: Soft tissues: The superficial soft tissues are normal. Bones: Age appropriate degenerative changes of the spine. IMPRESSION: 1. No pulmonary embolism. 2. Mediastinal lymphadenopathy. Clinical correlation advised. 3. Bilateral pleural effusion with adjacent atelectasis. Focal area of pneumonia in the left lower lobe laterally. Reviewed, dictated and finalized at location A. Venous Doppler study: Radiologist's impression: BILATERAL LOWER EXTREMITY VENOUS ULTRASOUND Ordering provider: Albert Moyer MD History: . leg swelling, hx PE . Comparison: None. FINDINGS: RIGHT LOWER EXTREMITY VEINS: --COMMON FEMORAL: Patent and free of thrombus. Normal compressibility, phasic flow and augmentation. --PROXIMAL SUPERFICIAL FEMORAL: Patent and free of thrombus. Normal compressibility, phasic flow and augmentation. --DISTAL SUPERFICIAL FEMORAL: Patent and free of thrombus. Normal compressibility, phasic flow and augmentation. --POPLITEAL: Patent and free of thrombus. Normal compressibility, phasic flow and augmentation. --POSTERIOR TIBIAL: Patent and free of thrombus. Normal compressibility, phasic flow and augmentation. LEFT LOWER EXTREMITY VEINS: --COMMON FEMORAL: Patent and free of thrombus. Normal compressibility, phasic flow and augmentation. --PROXIMAL SUPERFICIAL FEMORAL: Patent and free of thrombus. Normal compressibility, phasic flow and augmentation. --DISTAL SUPERFICIAL FEMORAL: Patent and free of thrombus. Normal compressibility, phasic flow and augmentation. --POPLITEAL: Patent and free of thrombus. Normal compressibility, phasic flow and augmentation. --POSTERIOR TIBIAL: Patent and free of thrombus. Normal compressibility, phasic flow and augmentation. Bilateral Chisholm's cyst measuring 3.8x 1.5 x 1.3 cm on the right side and 6.1x. IMPRESSION: Negative bilateral lower extremity venous US. No deep vein thrombosis. Bilateral Chisholm's cyst. Reviewed, dictated and finalized at location A. Chest x-ray: Radiologist's impression: XR chest 2V Ordering provider: Alexsander Dick MD History: 63 years Male with . sob . Comparison: None. FINDINGS: MEDIASTINUM: The cardiac silhouette is slightly enlarged. Congestive kathia. LUNGS: No effusions or pneumothorax. Bilateral interstitial thickening. OTHER: No free air under the diaphragm. Degenerative changes of the spine. IMPRESSION: Cardiomegaly with cardiac decompensation and pulmonary edema. Pneumonitis is not excluded. Reviewed, dictated and finalized at location A. Assessment and Plan Assessment and plan (1) Non-STEMI (non-ST elevated myocardial infarction): Code(s): I21.4 - Non-ST elevation (NSTEMI) myocardial infarction Status: Acute Assessment and Plan: * Troponin 0.062> 0.064> 0.068 * Cardiology consulted * Continue heparin infusion for NSTEMI * Continue IMU status * Continue cardiac monitoring * EKG showing a flutter with RVR with a rate of 150, QTC 466 * Chest x-ray showing cardiomegaly with cardiac decompensation and pulmonary edema, pneumonitis is not excluded (2) Atrial flutter with rapid ventricular response: Code(s): I48.92 - Unspecified atrial flutter Status: Acute Assessment and Plan: * Initial EKG showing a flutter with RVR with a rate of 150, QTC 460 * Patient given amiodarone and started on amiodarone infusion, currently at 0.5 mg per minute * Currently on heparin drip for NSTEMI * Cardiology consulted * Echocardiogram ordered for in the morning * Chest CTA shown bilateral pleural effusions with adjacent atelectasis, focal area of pneumonia in the left lower lobe laterally, no PE (3) Acute decompensated heart failure: Code(s): I50.9 - Heart failure, unspecified Status: Acute Assessment and Plan: * Chest x-ray showing cardiomegaly with cardiac decompensation and pulmonary edema, pneumonitis is not excluded * Patient was given 40 mg IV push Lasix in the ED * Cardiology consulted * Plan for echocardiogram (4) Community acquired pneumonia: Code(s): J18.9 - Pneumonia, unspecified organism Status: Acute Assessment and Plan: * Chest CTA showing bilateral pleural effusions with adjacent atelectasis, area of pneumonia in the left lower lobe * Continue Rocephin and doxycycline * Will check respiratory panel for influenza A and B, RSV, COVID (5) Asthma: Code(s): J45.909 - Unspecified asthma, uncomplicated Status: Acute Assessment and Plan: * Xopenex breathing treatments ordered due to a flutter with RVR (6) Hypertension: Code(s): I10 - Essential (primary) hypertension Status: Acute Assessment and Plan: * Blood pressures ranging 124/77 to 146/79 * Patient states he has stopped taking all of his home medications as he was getting this through [facility] via mail order prescription and it became too much of a hassle * Will need home medications addressed in the morning possibly with his primary care doctor as he cannot recall what he took before (7) Hyperlipidemia: Code(s): E78.5 - Hyperlipidemia, unspecified Status: Acute Assessment and Plan: * Patient states he has stop taking all of his home medications as [facility] and it became too much of a hassle * Will need home medications addressed in the morning possibly with his primary care doctor as he does not recall what he took before Quality VTE Prophylaxis VTE prophylaxis: pharmacologic ordered Hospitalist MIPS Advance Care Plan I have confirmed that the patient's Advanced Care Plan is present, code status is documented, or surrogate decision maker is listed in patient medical record.: Yes Medication Reconciliation I have utilized all available resources to obtain, update and review the patients current medications (includes all prescriptions, OTC, herbals, cannabis, and nutritional supplements).: Yes
[2024-05-11 04:28] LABS: Basophils Absolute Auto 0.1 K/mm3 (0.0-0.1); Basophils Percent Auto 0.7 % (0.2-1.2); Eosinophils Absolute Auto 0.2 K/mm3 (0-0.3); Eosinophils Percent Auto 2.7 % (0-4.4); Hematocrit 41.3 % (42.0-52.0); Hemoglobin 13.6 g/dL (14.0-18.0); Immature Granulocyte Absolute 0.03 K/mm3 (0.00-0.031); Immature Granulocyte Percent A 0.4 % (0-0.5); Lymphocytes Absolute Auto 1.68 K/mm3 (0.9-3.2); Lymphocytes Percent Auto 20.2 % (18.3-44.2); Mean Corpuscular HGB Conc 32.9 g/dl (32-36); Mean Corpuscular Volume 100.2 fl (80-100); Mean Platelet Volume 9.3 fl (7.4-10.4); Monocytes Absolute Auto 0.6 K/mm3 (0.1-0.6); Monocytes Percent Auto 7.3 % (2.6-8.5); Neutrophils Absolute Auto 5.7 K/mm3 (1.3-6.7); Neutrophils Percent Auto 68.7 % (45.5-73.1); Platelet Count Result 201 k/mm3 (150-375); Red Blood Count 4.12 M/mm3 (4.6-6.20); Red Cell Distribution Width 14.1 % (11.5-14.5); White Blood Count 8.3 K/mm3 (4.5-10.0)
[2024-05-11 04:38] LABS: Partial Thromboplastin Time 78.1 Seconds (22.3-36.8)
[2024-05-11 04:39] LABS: Alanine Aminotransferase 72 U/L (6-50); Albumin Level 4.2 g/dL (3.5-5.1); Alkaline Phosphatase 66 U/L (38-126); Anion Gap 10 mmol/L (4-12); Aspartate Amino Transferase 32 U/L (17-59); Bilirubin,Total 0.4 mg/dL (0.2-1.3); Blood Urea Nitrogen 18 mg/dL (9-20); Calcium 9.5 mg/dL (8.4-10.2); Carbon Dioxide 27 mmol/L (22-30); Chloride 103 mmol/L (98-107); Estimated CRCL calculation 93 ml/min; Estimated Glomerular Filt Rate > 60; Glucose 122 mg/dL (65-110); Magnesium 1.7 mg/dL (1.6-2.3); Potassium 4.3 mmol/L (3.4-5.0); Sodium 140 mmol/L (137-145)
[2024-05-11 05:57] LABS: Influenza A QL RT-PCR Negative (Negative); Influenza B QL RT-PCR Negative (Negative); RSV RNA, RT-PCR Negative (Negative); SARS-CoV-2 RNA PCR Negative (Negative)
--- NOTE | 2024-05-11 06:00 | ECHO_ITS ---
Patient Info Name: Hill Foster Age: 63 years : 1960 Gender: Male Ht: 74 in Wt: 303 lbs BSA: 2.73 m2 HR: 120 bpm BP: 163 / 98 mmHg Heart Rhythm: Atrial Fibrillation Technical Quality: Fair Exam Date: 05/11/2024 11:29 AM Exam Location: Echo Lab Patient Status: Inpatient Admit Date: 05/11/2024 Staff Ordering Physician: Albert Moyer MD Real Estate Administrator: Shiela Daniel RDCS Attending Provider: Merry Balderrama MD Referring Physician: Comfort WITT; Exam Type: CA echo doppler color flow Study Info Indications - Heart failure Complete two-dimensional, color flow and Doppler transthoracic echocardiogram is performed. Summary 1. Left ventricular chamber dimension is mildly enlarged. 2. Left ventricular systolic function is severely reduced, estimated at 20-25%. 3. There is mildly increased left ventricular wall thickness. 4. Right ventricular systolic function is normal. 5. Left atrial chamber dimension is severely enlarged. 6. Right atrial chamber dimension is moderately enlarged. 7. There is mild to moderate mitral valve regurgitation. Left Ventricle Left ventricular chamber dimension is mildly enlarged. Left ventricular systolic function is severely reduced, estimated at 20-25%. There is mildly increased left ventricular wall thickness. The left ventricular diastolic function is abnormal. Right Ventricle Right ventricular chamber dimension is normal. Right ventricular systolic function is normal. Left Atria Left atrial chamber dimension is severely enlarged. Right Atria Right atrial chamber dimension is moderately enlarged. Atrial Septum Intact interatrial septum visualized by color flow imaging. Aortic Valve The aortic valve is not well visualized. There is no aortic valve stenosis. There is no aortic valve regurgitation. Pulmonic Valve The pulmonic valve is not well visualized. Mitral Valve There is mild to moderate mitral valve regurgitation. Tricuspid Valve There is trace tricuspid valve regurgitation. Pericardium/Pleural There is no pericardial effusion. Inferior Vena Cava Dilated inferior vena cava with <50% collapse upon inspiration consistent with elevated right atrial pressure, 15 mmHg. Aorta The aortic root size at the sinus of Valsalva is normal. Left Ventricular Outflow Tract Name Value Normal LVOT 2D LVOT Diameter 2.3 cm LVOT Doppler LVOT Peak Gradient 3 mmHg LVOT Mean Gradient 2 mmHg LVOT VTI 21 cm LVOT VTI/AV VTI Ratio 1.2 LVOT Stroke Volume 90 ml LVOT CO 15.0 l/min LVOT CI 5.5 l/min/m2 Pulmonic Valve Name Value Normal RVOT Doppler RVOT Peak Gradient 1 mmHg PV Doppler PV Peak Gradient 2 mmHg Mitral Valve Name Value Normal MV Doppler MV Decel Hendricks 683 cm/s2 MV PHT 41 ms MV Area (PHT) 5.4 cm2 4.0-5.0 MV Diastolic Function MV E Peak Velocity 96 cm/s MV A Peak Velocity 0 cm/s MV E/A 1,056.2 MV Decel Time 141 ms MV Annular TDI MV E/e' (Septal) 0.1 <=8.0 Tricuspid Valve Name Value Normal Estimated PAP/RSVP RA Pressure 15 mmHg <=5 Aortic Valve Name Value Normal AV Doppler AV Peak Velocity 120 cm/s AV Peak Gradient 5 mmHg AV Mean Gradient 3 mmHg AV VTI 18 cm AV Area (Cont Eq VTI) 4.9 cm2 >=3.0 AV Area (Cont Eq Paul) 3.2 cm2 AV Regurgitation 2D LVOT Area 4.3 cm2 Ventricles Name Value Normal LV Dimensions 2D/MM IVS Diastolic Thickness (2D) 1.2 cm 0.6-1.0 LVID Diastole (2D) 6.7 cm 4.2-5.8 LVIW Diastolic Thickness (2D) 1.2 cm 0.6-1.0 LVID Systole (2D) 5.6 cm 2.5-4.0 LVOT Diameter 2.3 cm LV Mass (2D Cubed) 369.25 g 88.00-224.00 LV Mass Index (2D Cubed) 135 g/m2 49-115 Relative Wall Thickness (2D) 0.36 LV Fractional Shortening/Ejection Fraction 2D/MM LV Fractional Shortening (2D) 17 % 25-43 LV EF (2D Teicholz) 34 % 52-72 LV Diastolic Volume (4C MOD) 179 ml LV EF (4C MOD) 40 % LV Diastolic Volume (2C MOD) 205 ml LV EF (2C MOD) 35 % LV Diastolic Volume (BP MOD) 191 ml 62-150 LV Diastolic Volume Index (BP MOD) 70 ml/m2 34-74 LV Systolic Volume (BP MOD) 122 ml 21-61 LV Systolic Volume Index (BP MOD) 45 ml/m2 11-31 LV EF (BP MOD) 36 % 52-72 LV Diastolic Length (4C) 8.9 cm LV Systolic Length (4C) 7.4 cm LV Stroke Volume (4C MOD) 72 ml LV CO (BP MOD) 0.0 l/min LV CI (BP MOD) 0.0 l/min/m2 Atria Name Value Normal LA Dimensions LA Volume (4C A-L) 126 ml LA Volume (BP A-L) 116 ml RA Dimensions RA Area (4C) 27.2 cm2 <=18.0 Report Signatures
[2024-05-11] MEDS: HEPARIN SOD/D5W 100 UNITS/ML 25,000 UNITS/250 ML BAG 19 UNITS IV CONT (06:51)
[2024-05-11] MEDS: AMIODARONE 360 MG/D5W 200 ML 360 MG/200 ML BAG 16.67 MG IV CONT (08:14)
[2024-05-11] MEDS: SPIRONOLACTONE 12.5 MG TABLET PO (08:14)
[2024-05-11] MEDS: EMPAGLIFLOZIN 10 MG TABLET PO (08:14)
[2024-05-11] MEDS: SACUBITRIL/VALSARTAN 24-26 MG TABLET 1 TAB PO ×2 (08:14→20:35)
[2024-05-11] MEDS: DOXYCYCLINE HYCLATE 100 MG TABLET PO ×2 (08:14→20:35)
[2024-05-11] MEDS: LEVALBUTEROL NEB 1.25 MG/3 ML INHALATION ×2 (08:20→20:22)
--- NOTE | 2024-05-11 09:44 | P.CONCA_ITS ---
Assessment and Plan Assessment and plan (1) Atrial flutter with rapid ventricular response: Code(s): I48.92 - Unspecified atrial flutter Status: Acute Plan 1. Atrial flutter with RVR. New diagnosis of atrial flutter 2. New diagnosis of heart failure. Bedside echocardiogram by ER shows concern for severely reduced LVEF. 3. Hypertension 4. Hyperlipidemia 5. Obesity with BMI of 37 PLAN -Has had ongoing symptoms for 2 weeks now, suspect he has been in atrial flutter probably since then. Recommend GARFIELD-guided DCCV. Discussed procedure with the patient, including indication for the patient, procedure details, risks vs benefits, etc. Patient agreeable. Patient already ate breakfast this morning, therefore, scheduled for GARFIELD-guided DCCV with Anesthesia 05/12 at 2PM. NPO at midnight placed. Given that he has probably been in atrial flutter for two weeks now, will avoid antiarrhythmics for now until we can rule out left atrial appendage thrombus with GARFIELD. Therefore, will stop Amiodarone. Start Metoprolol 50mg Q6H for rate control. Will stop Heparin drip and start Eliquis 5mg BID. [id number] score of 2 for CHF and hypertension, therefore, long-term anticoagulation indicated. -Needs outpatient sleep study to evaluate for JESSICA. -Echocardiogram pending. -Given volume overload, will start Lasix 40mg IV BID. -Started on Entresto, Spironolactone, Jardiance, agree with this. Will adjust heart failure GDMT based on LVEF on echocardiogram. Recommendations and plan discussed with Hospitalist. History of Present Illness History of Present Illness Consult date/time: 05/11/24 09:44 Requesting physician: Albert Moyer MD Consult reason: Other (Atrial flutter with RVR) Reason For Visit: A Flutter Rapid Ventricular Response/New Onset Hea Narrative: We are consulted for atrial flutter with RVR, CHF. Hill is a 63 year old male with hypertension, hyperlipidemia, asthma, kidney stones, arthritis who presented to [place] for shortness of breath. Does not take any medications at home, and has not seen a physician in years. He reports ongoing shortness of breath and feelings of irregular heart beat for 2 weeks now. In the ED, noted to be in atrial flutter with RVR. Bedside echocardiogram by ER MD showed severely reduced LVEF, therefore, he was started on Amiodarone rather than Diltiazem drip. Started on Heparin drip. Workup shows troponins of 0.062, 0.064, 0.068. NT pro BNP of 2190. TSH level normal. Chest CTA shows no pulmonary embolism, bilateral pleural effusion, focal area of pneumonia in the left lower lobe laterally. EKG shows atrial flutter with RVR. Review of Systems 2 Review of Systems: All systems reviewed & are unremarkable except as noted in HPI and below (HPI) [facility] Past Medical History Medical History Asthma Arthritis Kidney stones Hyperlipidemia Hypertension Surgical History Surgical History H/O knee surgery Family History Family History Father History of heart artery stent Social History Social History Smoking status: Current every day smoker Smokeless tobacco user: other Additional smoking assessment comments: Marijuana Alcohol intake: former Substance use: former Do You Feel Safe in your Home?: Yes Lack of Transportation: No Lack of Food: Never True Current Housing: I Have Housing Concerned About Future Housing: No Difficulty Paying Gas/Electric Bills: No Difficulty Paying for Meds: No Currently Unemployed: No Education: Trade/Vocational Certificate Difficulty w/ Childcare or Family Care: No Spiritual care concerns: No Meds Home Medications and Allergies Home Medications ?Medication ?Instructions ?Recorded ?Confirmed ?Type No Home Medications 05/10/24 05/10/24 History Allergies Allergy/AdvReac Type Severity Reaction Status Date / Time No Known Allergies Allergy Verified 05/10/24 13:50 Vital Signs Vital Signs - 24 hr 05/10/24 13:09 05/10/24 13:25 05/10/24 13:36 Temperature 36.5 C Pulse Rate 84 151 H Respiratory Rate 26 H 28 H Blood Pressure 144/96 H 126/102 H Pulse Oximetry 98 99 95 Oxygen Delivery Room Air Room Air Oxygen Flow Rate Fraction of Inspired Oxygen 05/10/24 13:45 05/10/24 14:01 05/10/24 14:12 Temperature 36.6 C Pulse Rate 150 H 149 H 150 H Respiratory Rate 23 H 30 H Blood Pressure 131/96 H 131/91 H Pulse Oximetry 95 97 Oxygen Delivery Room Air Oxygen Flow Rate Fraction of Inspired Oxygen 05/10/24 15:13 05/10/24 15:18 05/10/24 15:18 Temperature Pulse Rate 147 H 151 H 151 H Respiratory Rate Blood Pressure Pulse Oximetry Oxygen Delivery Oxygen Flow Rate Fraction of Inspired Oxygen 05/10/24 15:36 05/10/24 15:48 05/10/24 15:59 Temperature Pulse Rate 144 H 141 H 148 H Respiratory Rate 30 H Blood Pressure 132/114 H 141/89 H Pulse Oximetry 94 Oxygen Delivery Oxygen Flow Rate Fraction of Inspired Oxygen 05/10/24 16:00 05/10/24 16:26 05/10/24 16:54 Temperature Pulse Rate 142 H 148 H 145 H Respiratory Rate 20 Blood Pressure 141/89 H 144/99 H Pulse Oximetry 95 Oxygen Delivery Oxygen Flow Rate Fraction of Inspired Oxygen 05/10/24 17:06 05/10/24 17:48 05/10/24 18:03 Temperature Pulse Rate 145 H 123 H 127 H Respiratory Rate 21 H 20 Blood Pressure 145/124 H 176/159 H Pulse Oximetry 83 L Oxygen Delivery Oxygen Flow Rate Fraction of Inspired Oxygen 05/10/24 18:13 05/10/24 18:13 05/10/24 18:36 Temperature 36.4 C Pulse Rate 130 H 130 H 113 H Respiratory Rate 20 20 18 Blood Pressure 124/77 124/77 120/75 Pulse Oximetry 95 95 95 Oxygen Delivery Oxygen Flow Rate Fraction of Inspired Oxygen 05/10/24 20:00 05/10/24 20:00 05/10/24 20:00 Temperature Pulse Rate 170 H 110 H Respiratory Rate Blood Pressure Pulse Oximetry Oxygen Delivery Room Air Oxygen Flow Rate Fraction of Inspired Oxygen 05/10/24 20:36 05/10/24 21:06 05/10/24 21:06 Temperature 36.6 C Pulse Rate 170 H 117 H 117 H Respiratory Rate 18 Blood Pressure 115/69 Pulse Oximetry 96 Oxygen Delivery Oxygen Flow Rate Fraction of Inspired Oxygen 05/10/24 21:26 05/10/24 21:33 05/10/24 21:40 Temperature Pulse Rate 147 H 147 H 136 H Respiratory Rate 20 20 Blood Pressure Pulse Oximetry 95 Oxygen Delivery Room Air Oxygen Flow Rate Fraction of Inspired Oxygen 21 05/10/24 21:56 05/10/24 22:00 05/10/24 22:06 Temperature Pulse Rate 126 H 126 H 131 H Respiratory Rate Blood Pressure 146/79 H Pulse Oximetry Oxygen Delivery Oxygen Flow Rate Fraction of Inspired Oxygen 05/10/24 23:35 05/10/24 23:38 05/10/24 23:46 Temperature 36.6 C Pulse Rate 138 H 134 H Respiratory Rate 18 Blood Pressure 134/88 Pulse Oximetry 94 Oxygen Delivery Room Air Oxygen Flow Rate Fraction of Inspired Oxygen 05/11/24 00:00 05/11/24 02:00 05/11/24 02:00 Temperature Pulse Rate 117 H 126 H 118 H Respiratory Rate Blood Pressure 138/53 L Pulse Oximetry Oxygen Delivery Oxygen Flow Rate Fraction of Inspired Oxygen 05/11/24 02:18 05/11/24 02:30 05/11/24 02:42 Temperature Pulse Rate 125 H 120 H 120 H Respiratory Rate 20 20 Blood Pressure Pulse Oximetry Oxygen Delivery Oxygen Flow Rate Fraction of Inspired Oxygen 05/11/24 03:55 05/11/24 04:00 05/11/24 04:00 Temperature 36.6 C Pulse Rate 130 H 129 H Respiratory Rate 18 Blood Pressure 137/98 H Pulse Oximetry 100 Oxygen Delivery Room Air Oxygen Flow Rate Fraction of Inspired Oxygen 05/11/24 04:25 05/11/24 06:00 05/11/24 06:00 Temperature Pulse Rate 133 H 118 H 112 H Respiratory Rate Blood Pressure 163/98 H Pulse Oximetry Oxygen Delivery Oxygen Flow Rate Fraction of Inspired Oxygen 05/11/24 06:09 05/11/24 08:00 05/11/24 08:14 Temperature 36.6 C Pulse Rate 112 H 143 H 121 H Respiratory Rate 20 Blood Pressure 146/94 H Pulse Oximetry 93 Oxygen Delivery Oxygen Flow Rate Fraction of Inspired Oxygen 05/11/24 08:14 05/11/24 08:21 05/11/24 08:21 Temperature Pulse Rate 121 H 144 H Respiratory Rate 26 H Blood Pressure 137/90 Pulse Oximetry 98 Oxygen Delivery Nasal Cannula Oxygen Flow Rate 2 Fraction of Inspired Oxygen 05/11/24 08:26 05/11/24 08:26 05/11/24 08:32 Temperature Pulse Rate 126 H 126 H 145 H Respiratory Rate 24 H 26 H Blood Pressure Pulse Oximetry 97 Oxygen Delivery Nasal Cannula Oxygen Flow Rate 2 Fraction of Inspired Oxygen Exam 2 Const: General: no acute distress Other: Obese male HENMT: Mouth: Yes moist mucous membranes Eyes: General: appearance normal, both eyes and all related structures S clera: sclerae normal Resp: Effort & Inspection: normal respiratory effort Auscultation: d iminished lung sounds Cardio: Rate: tachycardic Rhythm: regular rhythm Heart sounds: no murmurs Skin: General skin exam: normal color Neuro: Speech: normal speech Psych: Mental Status: mental status grossly normal Affect: normal affect Results Labs and Meds 05/11/24 04:18 05/11/24 04:18 Lab results: Cardiac Enzymes 05/10/24 05/10/24 05/10/24 Range/Units 13:40 15:45 22:13 AST 30 (17-59) U/L Troponin I 0.062 H* 0.064 H* 0.068 H* (0.000-0.034) ng/mL 05/11/24 Range/Units 04:18 AST 32 (17-59) U/L Troponin I (0.000-0.034) ng/mL Coagulation 05/10/24 05/10/24 05/11/24 Range/Units 13:40 22:13 04:18 PT 13.4 (11.1-14.7) Seconds APTT 26.9 45.8 H 78.1 H (22.3-36.8) Seconds CBC 05/10/24 05/11/24 Range/Units 13:40 04:18 WBC 7.0 8.3 (4.5-10.0) K/mm3 RBC 3.74 L 4.12 L (4.6-6.20) M/mm3 Hgb 12.2 L 13.6 L (14.0-18.0) g/dL Hct 37.5 L 41.3 L (42.0-52.0) % Plt Count 199 201 (150-375) k/mm3 Lymph # (Auto) 1.34 1.68 (0.9-3.2) K/mm3 [place] # (Auto) 0.5 0.6 (0.1-0.6) K/mm3 Eos # (Auto) 0.3 0.2 (0-0.3) K/mm3 Baso # (Auto) 0.0 0.1 (0.0-0.1) K/mm3 Comprehensive Metabolic Panel 05/10/24 05/11/24 Range/Units 13:40 04:18 Sodium 139 140 (137-145) mmol/L Potassium 4.5 4.3 (3.4-5.0) mmol/L Chloride 104 103 (98-107) mmol/L Carbon Dioxide 25 27 (22-30) mmol/L BUN 19 18 (9-20) mg/dL Creatinine 0.97 1.08 (0.7-1.3) mg/dL Glucose 119 H 122 H (65-110) mg/dL Calcium 9.5 9.5 (8.4-10.2) mg/dL AST 30 32 (17-59) U/L ALT 70 H 72 H (6-50) U/L Alkaline Phosphatase 57 66 (38-126) U/L Total Protein 7.0 7.0 (6.3-8.2) g/dL Albumin 4.0 4.2 (3.5-5.1) g/dL Intake and Output 05/10/24 05/11/24 05/11/24 23:59 07:59 15:59 Intake Total 446.6 1004.4 154.7 Output Total 950 350 300 Balance -503.4 654.4 -145.3 Intake: IV 446.6 254.4 34.7 Amiodarone 150 mg/D5w 100 ml 100 150 mg In 100 ml @ 15 MG/MIN 600 mls/hr IV CONT .Q10M [facility] Rx #:[id number] Amiodarone 360 mg/D5w 200 ml 242.3 108.7 34.7 360 mg In 200 ml @ 0.5 MG/MIN 16.667 mls/hr IV CONT .Q12H [facility] Rx#:[id number] Heparin Sod/D5w 100 Units/ml 25 104.3 145.7 ,000 units In 250 ml @ 1,900 UNITS/HR 19 mls/hr IV CONT . [id number] [facility] Rx#:[id number] Oral 750 120 Output: Urine 950 350 300 Patient Weight 05/11/24 23:59 Weight 130.6 kg
[2024-05-11] MEDS: APIXABAN 5 MG TABLET PO ×2 (10:06→20:35)
[2024-05-11] MEDS: METOPROLOL TARTRATE 50 MG TAB PO ×3 (10:07→20:35)
[2024-05-11] MEDS: FUROSEMIDE INJ 40 MG/4 ML VIAL IV PUSH ×2 (10:07→17:44)
[2024-05-11 10:34] LABS: Cholesterol 150 mg/dL (0-200); HDL Direct 37 mg/dL; Triglycerides 126 mg/dL (<150)
[2024-05-11 10:47] LABS: LDL Cholesterol Direct 95 mg/dL
[2024-05-11 11:12] LABS: Troponin I 0.068 ng/mL (0.000-0.034)
[2024-05-11 11:29] LABS: Partial Thromboplastin Time 53.7 Seconds (22.3-36.8)
--- NOTE | 2024-05-11 18:47 | P.PNIM_ITS ---
Progress Note: A&P Assessment and Plan (1) Non-STEMI (non-ST elevated myocardial infarction): Code(s): I21.4 - Non-ST elevation (NSTEMI) myocardial infarction Status: Acute (2) Unspecified atrial flutter: Code(s): I48.92 - Unspecified atrial flutter Status: Acute (3) Heart failure, unspecified: Code(s): I50.9 - Heart failure, unspecified Status: Acute (4) Community acquired pneumonia: Code(s): J18.9 - Pneumonia, unspecified organism Status: Acute (5) Asthma: Code(s): J45.909 - Unspecified asthma, uncomplicated Status: Acute (6) Hypertension: Code(s): I10 - Essential (primary) hypertension Status: Acute (7) Hyperlipidemia: Code(s): E78.5 - Hyperlipidemia, unspecified Status: Acute Plan Patient had not been seen any provider for over 2 yrs, patient had on going symptoms for 2 weeks, besides atrial flutter with RVR, ECHO showed poor EF, patient was treated in the ER with amiodarone infusion and which slow the HR, patient is treated with lasix, patient is seen by cardio recommending GARFIELD-guided DCCV, chest x-ray is also concerning for pneumonia most likely community- acquired being treated with ceftriaxone and azithromycin, patient stats feeling better compared to when he arrived. Subjective Date/time seen: 05/11/24 18:47 Interval history: Shortness of breath/dyspnea H&P-Narrative: This is a 63-year-old male with a significant past medical history of hyperlipidemia, hypertension, asthma, kidney stones, arthritis who presented to the hospital with complaints of shortness of breath and dyspnea. Patient states that for the last week he has had dyspnea with exertion and feeling like he was going to pass out. He has not taken any of his home medications and at least 3 weeks as he [facility] and it became too much of a hassle. Workup in the hospital included chest CTA which was negative for PE, mediastinal lymphadenopathy, bilateral pleural effusion with adjacent atelectasis, focal area of pneumonia in the left lower lobe laterally. Bilateral venous Doppler was negative for DVT however did show bilateral Chisholm cyst. Chest x-ray showed cardiomegaly with cardiac decompensation and pulmonary edema, pneumonitis is not excluded. Initial labs showed a normal white blood cell count of 7.0, hemoglobin 12.2, INR 1.0, ALT 70, troponin 0.064> 0.068, proBNP 2190, TSH 1.860. EKG showed atrial flutter with RVR with a rate of 150, QTC 466. Patient was given an amiodarone bolus and started on amiodarone infusion along with heparin infusion, given 40 mg of Lasix, Rocephin, doxycycline, and Xopenex nebulized breathing treatment while in the ED. cardiology was consulted. Patient had not been seen any provider for over 2 yrs, patient had on going symptoms for 2 weeks, besides atrial flutter with RVR, ECHO showed poor EF, patient was treated in the ER with amiodarone infusion and which slow the HR, patient is treated with lasix, patient is seen by cardio recommending GARFIELD-guided DCCV, chest x-ray is also concerning for pneumonia most likely community- acquired being treated with ceftriaxone and azithromycin, patient stats feeling better compared to when he arrived. Exam Narrative: Morbidly obese Patient is comfortable, NAD HEENT: eyes are clear and none icteric LUNGS: Bilateral fair entry with rales and rhonchi HEART: Irregularly irregular ABD: BS+, Soft and nontender Lower extremities: edema SKIN: nonjaundiced Neuro: grossly intact. Objective Data Vital Signs Vital Signs: Vital Signs - 24 hr 05/10/24 20:00 05/10/24 20:00 05/10/24 20:00 Temperature Pulse Rate 170 H 110 H Respiratory Rate Blood Pressure Pulse Oximetry Oxygen Delivery Room Air Oxygen Flow Rate Fraction of Inspired Oxygen 05/10/24 20:36 05/10/24 21:06 05/10/24 21:06 Temperature 36.6 C Pulse Rate 170 H 117 H 117 H Respiratory Rate 18 Blood Pressure 115/69 Pulse Oximetry 96 Oxygen Delivery Oxygen Flow Rate Fraction of Inspired Oxygen 05/10/24 21:26 05/10/24 21:33 05/10/24 21:40 Temperature Pulse Rate 147 H 147 H 136 H Respiratory Rate 20 20 Blood Pressure Pulse Oximetry 95 Oxygen Delivery Room Air Oxygen Flow Rate Fraction of Inspired Oxygen 21 05/10/24 21:56 05/10/24 22:00 05/10/24 22:06 Temperature Pulse Rate 126 H 126 H 131 H Respiratory Rate Blood Pressure 146/79 H Pulse Oximetry Oxygen Delivery Oxygen Flow Rate Fraction of Inspired Oxygen 05/10/24 23:35 05/10/24 23:38 05/10/24 23:46 Temperature 36.6 C Pulse Rate 138 H 134 H Respiratory Rate 18 Blood Pressure 134/88 Pulse Oximetry 94 Oxygen Delivery Room Air Oxygen Flow Rate Fraction of Inspired Oxygen 05/11/24 00:00 05/11/24 02:00 05/11/24 02:00 Temperature Pulse Rate 117 H 126 H 118 H Respiratory Rate Blood Pressure 138/53 L Pulse Oximetry Oxygen Delivery Oxygen Flow Rate Fraction of Inspired Oxygen 05/11/24 02:18 05/11/24 02:30 05/11/24 02:42 Temperature Pulse Rate 125 H 120 H 120 H Respiratory Rate 20 20 Blood Pressure Pulse Oximetry Oxygen Delivery Oxygen Flow Rate Fraction of Inspired Oxygen 05/11/24 03:55 05/11/24 04:00 05/11/24 04:00 Temperature 36.6 C Pulse Rate 130 H 129 H Respiratory Rate 18 Blood Pressure 137/98 H Pulse Oximetry 100 Oxygen Delivery Room Air Oxygen Flow Rate Fraction of Inspired Oxygen 05/11/24 04:25 05/11/24 06:00 05/11/24 06:00 Temperature Pulse Rate 133 H 118 H 112 H Respiratory Rate Blood Pressure 163/98 H Pulse Oximetry Oxygen Delivery Oxygen Flow Rate Fraction of Inspired Oxygen 05/11/24 06:09 05/11/24 08:00 05/11/24 08:14 Temperature 36.6 C Pulse Rate 112 H 143 H 121 H Respiratory Rate 20 Blood Pressure 146/94 H Pulse Oximetry 93 Oxygen Delivery Oxygen Flow Rate Fraction of Inspired Oxygen 05/11/24 08:14 05/11/24 08:21 05/11/24 08:21 Temperature Pulse Rate 121 H 144 H Respiratory Rate 26 H Blood Pressure 137/90 Pulse Oximetry 98 Oxygen Delivery Nasal Cannula Oxygen Flow Rate 2 Fraction of Inspired Oxygen 05/11/24 08:26 05/11/24 08:26 05/11/24 08:32 Temperature Pulse Rate 126 H 126 H 145 H Respiratory Rate 24 H 26 H Blood Pressure Pulse Oximetry 97 Oxygen Delivery Nasal Cannula Oxygen Flow Rate 2 Fraction of Inspired Oxygen 05/11/24 10:00 05/11/24 10:07 05/11/24 10:08 Temperature Pulse Rate 144 H 131 H 138 H Respiratory Rate Blood Pressure 132/79 132/79 Pulse Oximetry Oxygen Delivery Oxygen Flow Rate Fraction of Inspired Oxygen 05/11/24 12:00 05/11/24 12:30 05/11/24 12:30 Temperature 36.4 C L Pulse Rate 122 H 131 H 131 H Respiratory Rate 20 Blood Pressure 143/93 H Pulse Oximetry 97 Oxygen Delivery Room Air Oxygen Flow Rate Fraction of Inspired Oxygen 05/11/24 14:00 05/11/24 14:00 05/11/24 15:40 Temperature Pulse Rate 128 H 134 H Respiratory Rate Blood Pressure 94/68 L Pulse Oximetry Oxygen Delivery Oxygen Flow Rate Fraction of Inspired Oxygen 05/11/24 15:53 05/11/24 15:53 05/11/24 15:53 Temperature Pulse Rate 134 H 134 H 123 H Respiratory Rate 22 H Blood Pressure 139/88 Pulse Oximetry 98 Oxygen Delivery Room Air Oxygen Flow Rate Fraction of Inspired Oxygen 05/11/24 16:48 Temperature 36.4 C Pulse Rate 128 H Respiratory Rate 16 Blood Pressure 106/86 Pulse Oximetry 94 Oxygen Delivery Oxygen Flow Rate Fraction of Inspired Oxygen Intake/Output Intake/Output: Intake & Output 05/09/24 05/09/24 05/10/24 05/11/24 00:59 23:59 23:59 23:59 Intake Total 696.6 1961.6 Output Total 1150 5100 Balance -453.4 -3138.4 Meds/Results Medications: Active Medications Generic Name Dose Route Start Last Admin Trade Name Freq PRN Reason Stop Dose Admin Apixaban 5 mg 05/11/24 09:45 05/11/24 10:06 Apixaban 5 Mg Tablet PO 5 mg Q12HR MAEGAN Administration Doxycycline Hyclate 100 mg 05/11/24 09:00 05/11/24 08:14 Doxycycline Hyclate 100 Mg Tablet PO 100 mg Q12HR MAEGAN Administration Empagliflozin 10 mg 05/11/24 09:00 05/11/24 08:14 Empagliflozin 10 Mg Tablet PO 10 mg DAILY MEAGAN Administration Furosemide 40 mg 05/11/24 09:45 05/11/24 17:44 Furosemide Inj 40 Mg/4 Ml Vial IV PUSH 40 mg BID MAEGAN Administration Ceftriaxone Sodium 1 gm in 50 mls @ 100 mls/hr 05/11/24 16:00 05/11/24 15:40 Rocephin 1 Gm/Ns 50 Ml IVPB 100 mls/hr Q24H MAEGAN Administration Levalbuterol HCl 1.25 mg 05/11/24 21:15 05/11/24 08:20 Levalbuterol Neb 1.25 Mg/3 Ml INHALATION 1.25 mg Q6HRT MAEGAN Administration Metoprolol Tartrate 50 mg 05/11/24 09:45 05/11/24 15:40 Metoprolol Tartrate 50 Mg Tab PO 50 mg Q6H MAEGAN Administration Perflutren Lipid Microsphere 0 ml 05/10/24 17:11 Perflutren Lipid Microspheres 1.5 Ml Vial Diluted To 10 Ml Total Volume IV PUSH 05/13/24 17:12 ONCE PRN adequate visualization Protocol Sacubitril/Valsartan 1 tab 05/11/24 09:00 05/11/24 08:14 Sacubitril/Valsartan 24-26 Mg Tablet PO 1 tab Q12HR MAEGAN Administration Spironolactone 12.5 mg 05/11/24 09:00 05/11/24 08:14 Spironolactone 12.5 Mg Tablet PO 12.5 mg QAM MAEGAN Administration Radiology Results: ITS Impressions Chest CTA 05/10/24 14:19 IMPRESSION: 1. No pulmonary embolism. 2. Mediastinal lymphadenopathy. Clinical correlation advised. 3. Bilateral pleural effusion with adjacent atelectasis. Focal area of pneumonia in the left lower lobe laterally. Venous Doppler Study 05/10/24 14:50 IMPRESSION: Negative bilateral lower extremity venous US. No deep vein thrombosis. Bilateral Chisholm's cyst. Chest X-Ray 05/10/24 14:54 IMPRESSION: Cardiomegaly with cardiac decompensation and pulmonary edema. Pneumonitis is not excluded. Labs Labs: Laboratory Results - last 24 hr 05/10/24 05/11/24 05/11/24 22:13 04:16 04:18 WBC 8.3 RBC 4.12 L Hgb 13.6 L Hct 41.3 L MCV 100.2 H MCH 33.0 MCHC 32.9 RDW 14.1 Plt Count 201 MPV 9.3 Immature Gran % (Auto) 0.4 Neut % (Auto) 68.7 Lymph % (Auto) 20.2 [place] % (Auto) 7.3 Eos % (Auto) 2.7 Baso % (Auto) 0.7 Lymph # (Auto) 1.68 [place] # (Auto) 0.6 Eos # (Auto) 0.2 Baso # (Auto) 0.1 Abs Immat Gran (auto) 0.03 Absolute Neuts (auto) 5.7 Absolute Nucleated RBC 0.000 Nucleated RBC % 0.0 APTT 45.8 H 78.1 H Sodium 140 Potassium 4.3 Chloride 103 Carbon Dioxide 27 Anion Gap 10 BUN 18 Creatinine 1.08 Estim Creat Clear Calc 93 Estimated GFR > 60 Glucose 122 H Calcium 9.5 Magnesium 1.7 Total Bilirubin 0.4 AST 32 ALT 72 H Alkaline Phosphatase 66 Troponin I 0.068 H* Total Protein 7.0 Albumin 4.2 Triglycerides 126 Cholesterol 150 LDL Cholesterol Direct 95 HDL Direct 37 Influenza A (RT-PCR) Influenza B (RT-PCR) RSV (RT-PCR) SARS-CoV-2 RNA (RT-PCR) 05/11/24 05/11/24 05:13 11:06 WBC RBC Hgb Hct MCV MCH MCHC RDW Plt Count MPV Immature Gran % (Auto) Neut % (Auto) Lymph % (Auto) [place] % (Auto) Eos % (Auto) Baso % (Auto) Lymph # (Auto) [place] # (Auto) Eos # (Auto) Baso # (Auto) Abs Immat Gran (auto) Absolute Neuts (auto) Absolute Nucleated RBC Nucleated RBC % APTT 53.7 H Sodium Potassium Chloride Carbon Dioxide Anion Gap BUN Creatinine Estim Creat Clear Calc Estimated GFR Glucose Calcium Magnesium Total Bilirubin AST ALT Alkaline Phosphatase Troponin I Total Protein Albumin Triglycerides Cholesterol LDL Cholesterol Direct HDL Direct Influenza A (RT-PCR) Negative Influenza B (RT-PCR) Negative RSV (RT-PCR) Negative SARS-CoV-2 RNA (RT-PCR) Negative
[2024-05-12] VITALS (33 sets, daily range): BP systolic 64–154; BP diastolic 48–97; PULSE 75–147; RESP 14–31; TEMP 36.3–36.6; O2SAT 93–97
[2024-05-12 00:29] LABS: Anion Gap 9 mmol/L (4-12); Blood Urea Nitrogen 24 mg/dL (9-20); Calcium 9.9 mg/dL (8.4-10.2); Carbon Dioxide 34 mmol/L (22-30); Chloride 98 mmol/L (98-107); Estimated CRCL calculation 71 ml/min; Estimated Glomerular Filt Rate 52; Glucose 111 mg/dL (65-110); Magnesium 1.9 mg/dL (1.6-2.3); Phosphorus 4.6 mg/dL (2.5-4.5); Sodium 141 mmol/L (137-145)
[2024-05-12] MEDS: MAGNESIUM SULF 1 GM/D5W 100 ML 1 GM/100 ML BAG IVPB (01:16)
[2024-05-12] MEDS: LEVALBUTEROL NEB 1.25 MG/3 ML INHALATION ×3 (02:23→20:15)
[2024-05-12] MEDS: METOPROLOL TARTRATE 50 MG TAB PO ×4 (03:35→20:13)
[2024-05-12 04:32] LABS: Basophils Absolute Auto 0.1 K/mm3 (0.0-0.1); Basophils Percent Auto 0.7 % (0.2-1.2); Eosinophils Absolute Auto 0.2 K/mm3 (0-0.3); Eosinophils Percent Auto 2.5 % (0-4.4); Hematocrit 43.7 % (42.0-52.0); Hemoglobin 14.4 g/dL (14.0-18.0); Immature Granulocyte Absolute 0.03 K/mm3 (0.00-0.031); Immature Granulocyte Percent A 0.4 % (0-0.5); Lymphocytes Absolute Auto 1.61 K/mm3 (0.9-3.2); Mean Corpuscular Hemoglobin 32.7 pg (26-34); Mean Corpuscular Volume 99.3 fl (80-100); Mean Platelet Volume 9.3 fl (7.4-10.4); Monocytes Absolute Auto 0.7 K/mm3 (0.1-0.6); Monocytes Percent Auto 9.2 % (2.6-8.5); Neutrophils Absolute Auto 4.8 K/mm3 (1.3-6.7); Neutrophils Percent Auto 65.2 % (45.5-73.1); Platelet Count Result 249 k/mm3 (150-375); White Blood Count 7.3 K/mm3 (4.5-10.0)
[2024-05-12 04:46] LABS: Alanine Aminotransferase 68 U/L (6-50); Albumin Level 4.3 g/dL (3.5-5.1); Alkaline Phosphatase 68 U/L (38-126); Anion Gap 10 mmol/L (4-12); Aspartate Amino Transferase 29 U/L (17-59); Bilirubin,Total 0.6 mg/dL (0.2-1.3); Blood Urea Nitrogen 23 mg/dL (9-20); Carbon Dioxide 32 mmol/L (22-30); Chloride 99 mmol/L (98-107); Estimated CRCL calculation 74 ml/min; Estimated Glomerular Filt Rate 54; Glucose 117 mg/dL (65-110); Potassium 5.4 mmol/L (3.4-5.0); Sodium 141 mmol/L (137-145)
[2024-05-12] MEDS: DOXYCYCLINE HYCLATE 100 MG TABLET PO ×2 (09:50→20:11)
[2024-05-12] MEDS: APIXABAN 5 MG TABLET PO ×2 (09:50→20:11)
[2024-05-12] MEDS: EMPAGLIFLOZIN 10 MG TABLET PO (09:51)
[2024-05-12] MEDS: FUROSEMIDE INJ 40 MG/4 ML VIAL IV PUSH ×2 (09:51→17:16)
[2024-05-12 10:32] LABS: Anion Gap 8 mmol/L (4-12); Blood Urea Nitrogen 24 mg/dL (9-20); Calcium 9.8 mg/dL (8.4-10.2); Carbon Dioxide 32 mmol/L (22-30); Chloride 101 mmol/L (98-107); Estimated CRCL calculation 81 ml/min; Estimated Glomerular Filt Rate 60; Glucose 123 mg/dL (65-110); Magnesium 2.1 mg/dL (1.6-2.3); Potassium 5.3 mmol/L (3.4-5.0); Sodium 141 mmol/L (137-145)
[2024-05-12] MEDS: SODIUM ZIRCONIUM CYCLOSILICATE 5 GM POWD.PACK PO (12:06)
--- NOTE | 2024-05-12 12:11 | P.PNCA_ITS ---
Progress Note: A&P Assessment and Plan (1) Hypertension: Code(s): I10 - Essential (primary) hypertension Status: Acute (2) Acute decompensated heart failure: Code(s): I50.9 - Heart failure, unspecified Status: Acute (3) Atrial flutter with rapid ventricular response: Code(s): I48.92 - Unspecified atrial flutter Status: Acute Plan 63 year old man with hypertension hyperlipidemia presented with shortness of found atrial flutter with rapid ventricular rates as as decompensated systolic heart failure Acute decompensated systolic heart failure -continue Lasix 40 mg p.o. b.i.d. -will hold Entresto this morning anticipation anesthesia GARFIELD guided cardiover yvette -continue to hold spironolactone as blood pressures are low normal -continue Lopressor 50 mg p.o. q.6 hours -continue Jardiance 10 mg p.o. daily Atrial flutter with rapid ventricular rates -his volume status is okay to proceed with GARFIELD guided cardioversion today with anesthesia -given the degree of his left atrial enlargement, will most likely load with 300 mg of amiodarone IV to assist with cardioversion once left atrial appendage thrombus ruled out -continue Lopressor 50 mg q.6 hours -continue Eliquis 5 mg p.o. b.i.d. Hypertension -well controlled on Entresto 24-26 mg p.o. b.i.d. Subjective Date/time seen: 05/12/24 12:11 Interval history: He still has some exertional shortness of breath. Otherwise his shortness of breath at rest has resolved mostly. No further orthopnea. Lower extremity swelling resolved. No significant chest discomfort. Previously had chest discomfort at work. Review of Systems Cardiovascular: Cardiovascular: Reports as per HPI Respiratory: Respiratory: Reports as per HPI Exam Const: General: comfortable HENMT: Mouth: Yes moist mucous membranes Eyes: EOM: EOMs intact bilaterally Neck: Neck: no JVD Resp: Effort & Inspection: normal respiratory effort Auscultation: rales Cardio: Rate: tachycardic Rhythm: abnormal rhythm Neuro: Speech: normal speech Extrem: General: pedal edema Objective Data Vital Signs Vital Signs: Vital Signs - 24 hr 05/11/24 12:30 05/11/24 12:30 05/11/24 14:00 Temperature Pulse Rate 131 H 131 H 128 H Respiratory Rate Blood Pressure Pulse Oximetry Oxygen Delivery Room Air Fraction of Inspired Oxygen 05/11/24 14:00 05/11/24 15:40 05/11/24 15:53 Temperature Pulse Rate 134 H 134 H Respiratory Rate Blood Pressure 94/68 L Pulse Oximetry Oxygen Delivery Room Air Fraction of Inspired Oxygen 05/11/24 15:53 05/11/24 15:53 05/11/24 16:48 Temperature 36.4 C Pulse Rate 134 H 123 H 128 H Respiratory Rate 22 H 16 Blood Pressure 139/88 106/86 Pulse Oximetry 98 94 Oxygen Delivery Fraction of Inspired Oxygen 05/11/24 18:00 05/11/24 20:00 05/11/24 20:00 Temperature 36.9 C Pulse Rate 138 H 147 H Respiratory Rate 20 Blood Pressure 104/80 Pulse Oximetry 96 Oxygen Delivery Room Air Fraction of Inspired Oxygen 05/11/24 20:00 05/11/24 20:22 05/11/24 20:22 Temperature Pulse Rate 145 H 145 H 145 H Respiratory Rate 16 16 Blood Pressure Pulse Oximetry 95 Oxygen Delivery Room Air Fraction of Inspired Oxygen 05/11/24 20:35 05/11/24 20:35 05/11/24 22:00 Temperature Pulse Rate 120 H 147 H 141 H Respiratory Rate 20 Blood Pressure Pulse Oximetry Oxygen Delivery Fraction of Inspired Oxygen 05/11/24 23:26 05/12/24 00:00 05/12/24 00:00 Temperature 36.5 C Pulse Rate 141 H 143 H 143 H Respiratory Rate 16 Blood Pressure 117/36 L Pulse Oximetry 95 Oxygen Delivery Room Air Fraction of Inspired Oxygen 21 05/12/24 02:00 05/12/24 02:22 05/12/24 02:35 Temperature Pulse Rate 132 H 143 H 147 H Respiratory Rate 20 20 Blood Pressure Pulse Oximetry Oxygen Delivery Fraction of Inspired Oxygen 05/12/24 03:35 05/12/24 03:40 05/12/24 04:00 Temperature 36.6 C Pulse Rate 144 H 121 H Respiratory Rate 16 Blood Pressure 99/69 L Pulse Oximetry 96 Oxygen Delivery Room Air Fraction of Inspired Oxygen 05/12/24 04:00 05/12/24 06:00 05/12/24 07:58 Temperature Pulse Rate 147 H 139 H 140 H Respiratory Rate 20 Blood Pressure Pulse Oximetry Oxygen Delivery Fraction of Inspired Oxygen 05/12/24 07:58 05/12/24 08:00 05/12/24 08:30 Temperature 36.4 C Pulse Rate 140 H 132 H Respiratory Rate 16 18 Blood Pressure 108/66 Pulse Oximetry 95 95 Oxygen Delivery Room Air Room Air Fraction of Inspired Oxygen 05/12/24 08:30 05/12/24 09:49 05/12/24 10:00 Temperature Pulse Rate 145 H 145 H 140 H Respiratory Rate Blood Pressure Pulse Oximetry Oxygen Delivery Fraction of Inspired Oxygen Intake/Output Intake/Output: Intake & Output 05/09/24 05/10/24 05/11/24 05/12/24 23:59 23:59 23:59 23:59 Intake Total 696.6 2011.6 Output Total 1150 7600 500 Balance -453.4 -5588.4 -500 Meds/Results Medications: Active Medications Generic Name Dose Route Start Last Admin Trade Name Freq PRN Reason Stop Dose Admin Apixaban 5 mg 05/11/24 09:45 05/12/24 09:50 Apixaban 5 Mg Tablet PO 5 mg Q12HR MAEGAN Administration Doxycycline Hyclate 100 mg 05/11/24 09:00 05/12/24 09:50 Doxycycline Hyclate 100 Mg Tablet PO 100 mg Q12HR MAEGAN Administration Empagliflozin 10 mg 05/11/24 09:00 05/12/24 09:51 Empagliflozin 10 Mg Tablet PO 10 mg DAILY MAEGAN Administration Furosemide 40 mg 05/11/24 09:45 05/12/24 09:51 Furosemide Inj 40 Mg/4 Ml Vial IV PUSH 40 mg BID MAEGAN Administration Ceftriaxone Sodium 1 gm in 50 mls @ 100 mls/hr 05/11/24 16:00 05/11/24 16:10 Rocephin 1 Gm/Ns 50 Ml IVPB Infused Q24H MAEGAN Infusion Levalbuterol HCl 1.25 mg 05/11/24 21:15 05/12/24 07:58 Levalbuterol Neb 1.25 Mg/3 Ml INHALATION 1.25 mg Q6HRT MAEGAN Administration Metoprolol Tartrate 50 mg 05/11/24 09:45 05/12/24 09:49 Metoprolol Tartrate 50 Mg Tab PO 50 mg Q6H MAEGAN Administration Perflutren Lipid Microsphere 0 ml 05/10/24 17:11 Perflutren Lipid Microspheres 1.5 Ml Vial Diluted To 10 Ml Total Volume IV PUSH 05/13/24 17:12 ONCE PRN adequate visualization Protocol Sacubitril/Valsartan 1 tab 05/11/24 09:00 05/12/24 10:49 Sacubitril/Valsartan 24-26 Mg Tablet PO Not Given Q12HR [facility] Sodium Zirconium Cyclosilicate 5 gm 05/12/24 10:00 05/12/24 12:06 Sodium Zirconium Cyclosilicate 5 Gm Powd.Pack PO 5 gm DAILY@1000 [facility] Administration Spironolactone 12.5 mg 05/11/24 09:00 05/12/24 10:49 Spironolactone 12.5 Mg Tablet PO Not Given QAM [facility] Radiology Results: ITS Impressions Chest CTA 05/10/24 14:19 IMPRESSION: 1. No pulmonary embolism. 2. Mediastinal lymphadenopathy. Clinical correlation advised. 3. Bilateral pleural effusion with adjacent atelectasis. Focal area of pneumonia in the left lower lobe laterally. Venous Doppler Study 05/10/24 14:50 IMPRESSION: Negative bilateral lower extremity venous US. No deep vein thrombosis. Bilateral Chisholm's cyst. Chest X-Ray 05/10/24 14:54 IMPRESSION: Cardiomegaly with cardiac decompensation and pulmonary edema. Pneumonitis is not excluded. Labs Labs: Laboratory Results - last 24 hr 05/12/24 05/12/24 05/12/24 00:09 04:16 10:06 WBC 7.3 RBC 4.40 L Hgb 14.4 Hct 43.7 MCV 99.3 MCH 32.7 MCHC 33.0 RDW 14.0 Plt Count 249 MPV 9.3 Immature Gran % (Auto) 0.4 Neut % (Auto) 65.2 Lymph % (Auto) 22.0 [place] % (Auto) 9.2 H Eos % (Auto) 2.5 Baso % (Auto) 0.7 Lymph # (Auto) 1.61 [place] # (Auto) 0.7 H Eos # (Auto) 0.2 Baso # (Auto) 0.1 Abs Immat Gran (auto) 0.03 Absolute Neuts (auto) 4.8 Absolute Nucleated RBC 0.000 Nucleated RBC % 0.0 Sodium 141 141 141 Potassium 5.0 5.4 H 5.3 H Chloride 98 99 101 Carbon Dioxide 34 H 32 H 32 H Anion Gap 9 10 8 BUN 24 H 23 H 24 H Creatinine 1.39 H 1.34 H 1.23 Estim Creat Clear Calc 71 74 81 Estimated GFR 52 L 54 L 60 Glucose 111 H 117 H 123 H Calcium 9.9 10.0 9.8 Phosphorus 4.6 H Magnesium 1.9 2.1 Total Bilirubin 0.6 AST 29 ALT 68 H Alkaline Phosphatase 68 Total Protein 7.0 Albumin 4.3
--- NOTE | 2024-05-12 12:26 | WPDHPUPDATE1 ---
History and Physical Update Update Date/Time: 05/12/24 11:26 History and Physical has been reviewed, including an updated exam of the patient. There are NO changes in the patient's condition. Risks, benefits, and alternatives have been discussed and questions answered. Patient agrees to proceed with procedure.
--- NOTE | 2024-05-12 13:37 | ECG_ITS ---
Test Date: 2024-05-12 13:40:30 Measurements Intervals [place] Rate: 149 P: 101 WV: 149 QRS: 55 QRSD: 106 T: 58 QT: 319 QTc: 503 Interpretive Statements ATRIAL FLUTTER WITH RVR Compared to ECG 05/10/2024 18:21:26 VENTRICULAR RATE IS FASTER NOW Electronically Signed On 05-13-2024 16:40:51 CDT by Ravi Andujar M.D.
--- NOTE | 2024-05-12 14:19 | SUR.PHASEII ---
peter Weeks allow 360 mg amiodarone to infuse over one hour.
--- NOTE | 2024-05-12 14:20 | ECG_ITS ---
Test Date: 2024-05-12 14:24:02 Measurements Intervals [place] Rate: 91 P: 68 GA: 173 QRS: 67 QRSD: 108 T: 60 QT: 369 QTc: 455 Interpretive Statements SINUS RHYTHM WITH FREQUENT VENTRICULAR PREMATURE COMPLEXES LEFT ATRIAL ENLARGEMENT [-0.15mV P WAVE IN V1/V2] Compared to ECG 05/12/2024 13:40:30 Ventricular premature complex(es) now present Atrial flutter no longer present Electronically Signed On 05-13-2024 16:42:50 CDT by Ravi Andujar M.D.
--- NOTE | 2024-05-12 14:38 | PC.NURSE ---
1330- to cardiac screedman/laborer for GARFIELD cardioversion
--- NOTE | 2024-05-12 14:52 | P.PNAN_ITS ---
Anes - Initial Pre Proc Eval Procedure: Operation Date: 05/12/24 14:00 Proposed Procedures p Electrical Cardioversion - Bipin Weeks MD s Trans Esophageal Echo - Bipin Weeks MD Date/Time: 05/12/24 14:52 Surgeon: Merry Balderrama MD Pre Op Diagnosis: A Flutter Rapid Ventricular Response/New Onset Hea Patient Data Age: 63 Gender: M Height: 1.88 m Weight: 134.4 kg Last Vital Signs Temp 36.6 C 05/12/24 12:00 Pulse 75 05/12/24 14:45 Resp 31 H 05/12/24 14:45 BP 70/53 L 05/12/24 14:45 Pulse Ox 93 05/12/24 14:45 O2 Del Method Room Air 05/12/24 12:20 O2 Flow Rate 2 05/11/24 08:26 FiO2 21 05/12/24 00:00 Allergies Allergy/AdvReac Type Severity Reaction Status Date / Time No Known Allergies Allergy Verified 05/10/24 13:50 Home Medications ?Medication ?Instructions ?Recorded ?Confirmed ?Type No Home Medications 05/10/24 05/10/24 History Laboratory Tests 05/12/24 05/12/24 05/12/24 00:09 04:16 10:06 WBC 7.3 K/mm3 (4.5-10.0) RBC 4.40 L M/mm3 (4.6-6.20) Hgb 14.4 g/dL (14.0-18.0) Hct 43.7 % (42.0-52.0) MCV 99.3 fl (80-100) MCH 32.7 pg (26-34) MCHC 33.0 g/dl (32-36) RDW 14.0 % (11.5-14.5) Plt Count 249 k/mm3 (150-375) MPV 9.3 fl (7.4-10.4) Immature Gran % (Auto) 0.4 % (0-0.5) Neut % (Auto) 65.2 % (45.5-73.1) Lymph % (Auto) 22.0 % (18.3-44.2) [place] % (Auto) 9.2 H % (2.6-8.5) Eos % (Auto) 2.5 % (0-4.4) Baso % (Auto) 0.7 % (0.2-1.2) Lymph # (Auto) 1.61 K/mm3 (0.9-3.2) [place] # (Auto) 0.7 H K/mm3 (0.1-0.6) Eos # (Auto) 0.2 K/mm3 (0-0.3) Baso # (Auto) 0.1 K/mm3 (0.0-0.1) Abs Immat Gran (auto) 0.03 K/mm3 (0.00-0.031) Absolute Neuts (auto) 4.8 K/mm3 (1.3-6.7) Absolute Nucleated RBC 0.000 K/mm3 (0.0-0.012) Nucleated RBC % 0.0 % (0.0-0.2) Sodium 141 mmol/L 141 mmol/L 141 mmol/L (137-145) (137-145) (137-145) Potassium 5.0 mmol/L 5.4 H mmol/L 5.3 H mmol/L (3.4-5.0) (3.4-5.0) (3.4-5.0) Chloride 98 mmol/L 99 mmol/L 101 mmol/L (98-107) (98-107) (98-107) Carbon Dioxide 34 H mmol/L 32 H mmol/L 32 H mmol/L (22-30) (22-30) (22-30) Anion Gap 9 mmol/L 10 mmol/L 8 mmol/L (4-12) (4-12) (4-12) BUN 24 H mg/dL 23 H mg/dL 24 H mg/dL (9-20) (9-20) (9-20) Creatinine 1.39 H mg/dL 1.34 H mg/dL 1.23 mg/dL (0.7-1.3) (0.7-1.3) (0.7-1.3) Estim Creat Clear Calc 71 ml/min 74 ml/min 81 ml/min Estimated GFR 52 L 54 L 60 (59 - ) (59 - ) (59 - ) Glucose 111 H mg/dL 117 H mg/dL 123 H mg/dL (65-110) (65-110) (65-110) Calcium 9.9 mg/dL 10.0 mg/dL 9.8 mg/dL (8.4-10.2) (8.4-10.2) (8.4-10.2) Phosphorus 4.6 H mg/dL (2.5-4.5) Magnesium 1.9 mg/dL 2.1 mg/dL (1.6-2.3) (1.6-2.3) Total Bilirubin 0.6 mg/dL (0.2-1.3) AST 29 U/L (17-59) ALT 68 H U/L (6-50) Alkaline Phosphatase 68 U/L (38-126) Total Protein 7.0 g/dL (6.3-8.2) Albumin 4.3 g/dL (3.5-5.1) Patient hx anesthesia problems: none Family hx anesthesia problems: none Results Review: All pre-operative results and documents have been reviewed as part of the pre- operative evaluation. [facility] Past Medical History Medical History (Updated 05/12/24 @ 14:54 by Juan Carlos Reddy MD) Atrial flutter with rapid ventricular response Acute decompensated heart failure Asthma Arthritis Kidney stones Hyperlipidemia Hypertension Surgical History Surgical History H/O knee surgery Family History Family History Father History of heart artery stent Social History Social History Smoking status: Current every day smoker Smokeless tobacco user: other Additional smoking assessment comments: Marijuana Alcohol intake: former Substance use: former Do You Feel Safe in your Home?: Yes Lack of Transportation: No Lack of Food: Never True Current Housing: I Have Housing Concerned About Future Housing: No Difficulty Paying Gas/Electric Bills: No Difficulty Paying for Meds: No Currently Unemployed: No Education: Trade/Vocational Certificate Difficulty w/ Childcare or Family Care: No Spiritual care concerns: No Anes - Eval Final PreProcedure Day of Procedure 05/12/24 14:52 Patient weight: obese Heart: regular rate and rhythm Lungs: clear to auscultation Airway: Mallampati scale class II and special considerations Neurological: alert and oriented Last oral intake: >/= 8 hours ASA classification: IV Emergent: no Anesthetic plan: proceed Anesthesia type and monitoring: general ETT and standard monitoring Results Review: All pre-operative results and documents have been reviewed as part of the pre- operative evaluation. Informed Consent: The patient's anesthetic plan and its attendant risks and benefits were discussed with the patient/family/POA. Questions were solicited and answers prov ided to the satisfaction of the patient/family/POA.
--- NOTE | 2024-05-12 14:56 | SUR.PHASEII ---
CHERYL tabares stopped amiodarone tony.
--- NOTE | 2024-05-12 15:18 | PC.NURSE ---
returned to room post cardioversion- monitor SR 80s- pt a/o- denies pain- family in room
--- NOTE | 2024-05-12 16:01 | WPDTECDV ---
GARFIELD with Cardioversion Date of procedure: 05/12/24 Procedure Type: Transesophageal echocardiogram with synchronized cardioversion Diagnosis: Paroxysmal atrial flutter Indications: Rhythm control in acute decompensated systolic heart failure Description of Procedure: Procedure In Detail: After verbal and written informed consent was obtained, the patient risks, benefits, and alternatives explained in detail. The patient agreed to proceed with the plan of care as outlined above.?The patient was evaluated at bedside.?The posterior oropharynx, neck, and jaw angle all within normal limits on examination. Lungs were clear to auscultation. The patient was then placed in the appropriate 30 to 45 degree angle supine position at a slight left lateral decubitus position.? Patient was monitored by Anesthesia throughout the study.?The posterior hypopharynx was then locally anesthetized using repeated administration of Hurricaine spray. After local anesthetic of the posterior hypopharynx was achieved and the oral bite block placed, and anesthesia provided sedation.?After confirmation of adequate sedation, the transesophageal echocardiogram probe was advanced through the oral bite block into the posterior hypopharynx and into the esophagus easily and without complication. Limited images were performed given patient's tenuous oxygen status.?At the conclusion of the study, the transesophageal echocardiogram probe was removed easily and without complication. The patient tolerated the procedure well without difficulty.?Patient was in atrial flutter with rapid ventricular rates throughout the study. Sedation: Sedation was provided by Anesthesia Findings: No thrombus in left atrial appendage. Atrial septum intact. Aortic valve is trileaflet and opens well. There is trivial aortic regurgitation. Conclusion: Successful GARFIELD guided cardioversion after left atrial appendage thrombus was ruled out. Patient was receiving a 300 mg IV amiodarone running over an hour time; however given his low blood pressure, this was discontinued. Continue management of acute systolic heart failure and will start amiodarone 200 mg p.o. daily to maintain sinus rhythm. Continue anticoagulation.
--- NOTE | 2024-05-12 17:33 | P.PNIM_ITS ---
Progress Note: A&P Assessment and Plan (1) Non-STEMI (non-ST elevated myocardial infarction): Code(s): I21.4 - Non-ST elevation (NSTEMI) myocardial infarction Status: Acute (2) Unspecified atrial flutter: Code(s): I48.92 - Unspecified atrial flutter Status: Acute (3) Heart failure, unspecified: Code(s): I50.9 - Heart failure, unspecified Status: Acute (4) Community acquired pneumonia: Code(s): J18.9 - Pneumonia, unspecified organism Status: Acute (5) Asthma: Code(s): J45.909 - Unspecified asthma, uncomplicated Status: Acute (6) Hypertension: Code(s): I10 - Essential (primary) hypertension Status: Acute (7) Hyperlipidemia: Code(s): E78.5 - Hyperlipidemia, unspecified Status: Acute Plan Patient had not been seen any provider for over 2 yrs, patient had on going symptoms for 2 weeks, besides atrial flutter with RVR, ECHO showed poor EF, patient was treated in the ER with amiodarone infusion and which slow the HR, patient is treated with lasix, patient is seen by cardio recommending GARFIELD-guided DCCV, chest x-ray is also concerning for pneumonia most likely community- acquired being treated with ceftriaxone and azithromycin, cardiac echo showed moderately reduced ejection fraction 20-25%, patient will need LifeVest prior to discharge, today patient stats feeling better compared to when he arrived francisca es any chest pain shortness of breath or palpitation, patient is scheduled for GARFIELD guided cardioversion, patient is anxious about the procedure, will continue to monitor will follow-up and further recommendation to follow. Subjective Date/time seen: 05/12/24 17:33 Interval history: Patient had not been seen any provider for over 2 yrs, patient had on going symptoms for 2 weeks, besides atrial flutter with RVR, ECHO showed poor EF, patient was treated in the ER with amiodarone infusion and which slow the HR, patient is treated with lasix, patient is seen by cardio recommending GARFIELD-guided DCCV, chest x-ray is also concerning for pneumonia most likely community-acq uired being treated with ceftriaxone and azithromycin, cardiac echo showed moderately reduced ejection fraction 20-25%, patient will need LifeVest prior to discharge, today patient stats feeling better compared to when he arrived denies any chest pain shortness of breath or palpitation, patient is scheduled for GARFIELD guided cardioversion, patient is anxious about the procedure, will continue to monitor will follow-up and further recommendation to follow. Review of Systems Review of Systems: All systems reviewed & are unremarkable except as noted in HPI and below Exam Narrative: Morbidly obese Patient is comfortable, NAD HEENT: eyes are clear and none icteric LUNGS: Bilateral fair entry with rales and rhonchi HEART: Irregularly irregular ABD: BS+, Soft and nontender Lower extremities: edema SKIN: nonjaundiced Neuro: grossly intact. Objective Data Vital Signs Vital Signs: Vital Signs - 24 hr 05/11/24 18:00 05/11/24 20:00 05/11/24 20:00 Temperature 36.9 C Pulse Rate 138 H 147 H Respiratory Rate 20 Blood Pressure 104/80 Pulse Oximetry 96 Oxygen Delivery Room Air Fraction of Inspired Oxygen 05/11/24 20:00 05/11/24 20:22 05/11/24 20:22 Temperature Pulse Rate 145 H 145 H 145 H Respiratory Rate 16 16 Blood Pressure Pulse Oximetry 95 Oxygen Delivery Room Air Fraction of Inspired Oxygen 05/11/24 20:35 05/11/24 20:35 05/11/24 22:00 Temperature Pulse Rate 120 H 147 H 141 H Respiratory Rate 20 Blood Pressure Pulse Oximetry Oxygen Delivery Fraction of Inspired Oxygen 05/11/24 23:26 05/12/24 00:00 05/12/24 00:00 Temperature 36.5 C Pulse Rate 141 H 143 H 143 H Respiratory Rate 16 Blood Pressure 117/36 L Pulse Oximetry 95 Oxygen Delivery Room Air Fraction of Inspired Oxygen 21 05/12/24 02:00 05/12/24 02:22 05/12/24 02:35 Temperature Pulse Rate 132 H 143 H 147 H Respiratory Rate 20 20 Blood Pressure Pulse Oximetry Oxygen Delivery Fraction of Inspired Oxygen 05/12/24 03:35 05/12/24 03:40 05/12/24 04:00 Temperature 36.6 C Pulse Rate 144 H 121 H Respiratory Rate 16 Blood Pressure 99/69 L Pulse Oximetry 96 Oxygen Delivery Room Air Fraction of Inspired Oxygen 05/12/24 04:00 05/12/24 06:00 05/12/24 07:58 Temperature Pulse Rate 147 H 139 H 140 H Respiratory Rate 20 Blood Pressure Pulse Oximetry Oxygen Delivery Fraction of Inspired Oxygen 05/12/24 07:58 05/12/24 08:00 05/12/24 08:30 Temperature 36.4 C Pulse Rate 140 H 132 H Respiratory Rate 16 18 Blood Pressure 108/66 Pulse Oximetry 95 95 Oxygen Delivery Room Air Room Air Fraction of Inspired Oxygen 05/12/24 08:30 05/12/24 09:49 05/12/24 10:00 Temperature Pulse Rate 145 H 145 H 140 H Respiratory Rate Blood Pressure Pulse Oximetry Oxygen Delivery Fraction of Inspired Oxygen 05/12/24 12:00 05/12/24 12:20 05/12/24 12:20 Temperature 36.6 C Pulse Rate 141 H 146 H Respiratory Rate 22 H Blood Pressure 154/94 H Pulse Oximetry 94 Oxygen Delivery Room Air Fraction of Inspired Oxygen 05/12/24 14:35 05/12/24 14:40 05/12/24 14:45 Temperature Pulse Rate 86 84 75 Respiratory Rate 18 20 31 H Blood Pressure 77/48 L 64/55 L 70/53 L Pulse Oximetry 97 94 93 Oxygen Delivery Room Air Room Air Room Air Fraction of Inspired Oxygen 05/12/24 14:50 05/12/24 14:55 05/12/24 15:00 Temperature Pulse Rate 90 89 80 Respiratory Rate 17 14 19 Blood Pressure 74/51 L 96/64 L 103/84 Pulse Oximetry 95 96 95 Oxygen Delivery Room Air Room Air Room Air Fraction of Inspired Oxygen 05/12/24 15:05 05/12/24 16:00 05/12/24 16:03 Temperature 36.3 C L Pulse Rate 86 88 89 Respiratory Rate 20 18 Blood Pressure 108/82 105/54 L Pulse Oximetry 96 96 Oxygen Delivery Room Air Fraction of Inspired Oxygen Intake/Output Intake/Output: Intake & Output 05/09/24 05/10/24 05/11/24 05/12/24 23:59 23:59 23:59 23:59 Intake Total 696.6 2011.6 Output Total 1150 7600 1100 Balance -453.4 -5588.4 -1100 Meds/Results Medications: Active Medications Generic Name Dose Route Start Last Admin Trade Name Freq PRN Reason Stop Dose Admin Amiodarone HCl 200 mg 05/13/24 08:00 Amiodarone Hcl 200 Mg Tablet PO DAILY@0800 [facility] Apixaban 5 mg 05/11/24 09:45 05/12/24 09:50 Apixaban 5 Mg Tablet PO 5 mg Q12HR MAEGAN Administration Doxycycline Hyclate 100 mg 05/11/24 09:00 05/12/24 09:50 Doxycycline Hyclate 100 Mg Tablet PO 100 mg Q12HR MAEGAN Administration Empagliflozin 10 mg 05/11/24 09:00 05/12/24 09:51 Empagliflozin 10 Mg Tablet PO 10 mg DAILY MAEGAN Administration Furosemide 40 mg 05/11/24 09:45 05/12/24 17:16 Furosemide Inj 40 Mg/4 Ml Vial IV PUSH 40 mg BID MAEGAN Administration Ceftriaxone Sodium 1 gm in 50 mls @ 100 mls/hr 05/11/24 16:00 05/12/24 16:04 Rocephin 1 Gm/Ns 50 Ml IVPB 100 mls/hr Q24H MAEGAN Administration Levalbuterol HCl 1.25 mg 05/11/24 21:15 05/12/24 14:10 Levalbuterol Neb 1.25 Mg/3 Ml INHALATION Not Given Q6HRT [facility] Metoprolol Tartrate 50 mg 05/11/24 09:45 05/12/24 16:03 Metoprolol Tartrate 50 Mg Tab PO 50 mg Q6H [facility] Administration Perflutren Lipid Microsphere 0 ml 05/10/24 17:11 Perflutren Lipid Microspheres 1.5 Ml Vial Diluted To 10 Ml Total Volume IV PUSH 05/13/24 17:12 ONCE PRN adequate visualization Protocol Sacubitril/Valsartan 1 tab 05/11/24 09:00 05/12/24 10:49 Sacubitril/Valsartan 24-26 Mg Tablet PO Not Given Q12HR [facility] Sodium Zirconium Cyclosilicate 5 gm 05/12/24 10:00 05/12/24 12:06 Sodium Zirconium Cyclosilicate 5 Gm Powd.Pack PO 5 gm DAILY@1000 [facility] Administration Spironolactone 12.5 mg 05/11/24 09:00 05/12/24 10:49 Spironolactone 12.5 Mg Tablet PO Not Given QAM [facility] Radiology Results: ITS Impressions Chest CTA 05/10/24 14:19 IMPRESSION: 1. No pulmonary embolism. 2. Mediastinal lymphadenopathy. Clinical correlation advised. 3. Bilateral pleural effusion with adjacent atelectasis. Focal area of pneumonia in the left lower lobe laterally. Venous Doppler Study 05/10/24 14:50 IMPRESSION: Negative bilateral lower extremity venous US. No deep vein thrombosis. Bilateral Chisholm's cyst. Chest X-Ray 05/10/24 14:54 IMPRESSION: Cardiomegaly with cardiac decompensation and pulmonary edema. Pneumonitis is not excluded. Labs Labs: Laboratory Results - last 24 hr 05/12/24 05/12/24 05/12/24 00:09 04:16 10:06 WBC 7.3 RBC 4.40 L Hgb 14.4 Hct 43.7 MCV 99.3 MCH 32.7 MCHC 33.0 RDW 14.0 Plt Count 249 MPV 9.3 Immature Gran % (Auto) 0.4 Neut % (Auto) 65.2 Lymph % (Auto) 22.0 [place] % (Auto) 9.2 H Eos % (Auto) 2.5 Baso % (Auto) 0.7 Lymph # (Auto) 1.61 [place] # (Auto) 0.7 H Eos # (Auto) 0.2 Baso # (Auto) 0.1 Abs Immat Gran (auto) 0.03 Absolute Neuts (auto) 4.8 Absolute Nucleated RBC 0.000 Nucleated RBC % 0.0 Sodium 141 141 141 Potassium 5.0 5.4 H 5.3 H Chloride 98 99 101 Carbon Dioxide 34 H 32 H 32 H Anion Gap 9 10 8 BUN 24 H 23 H 24 H Creatinine 1.39 H 1.34 H 1.23 Estim Creat Clear Calc 71 74 81 Estimated GFR 52 L 54 L 60 Glucose 111 H 117 H 123 H Calcium 9.9 10.0 9.8 Phosphorus 4.6 H Magnesium 1.9 2.1 Total Bilirubin 0.6 AST 29 ALT 68 H Alkaline Phosphatase 68 Total Protein 7.0 Albumin 4.3 Quality VTE Prophylaxis VTE prophylaxis: pharmacologic ordered
[2024-05-12] MEDS: SACUBITRIL/VALSARTAN 24-26 MG TABLET 1 TAB PO (20:11)
[2024-05-12] MEDS: ACETAMINOPHEN 325 MG TABLET 650 MG PO (22:45)
[2024-05-13] VITALS (24 sets, daily range): BP systolic 96–122; BP diastolic 44–95; PULSE 73–87; RESP 16–22; TEMP 36.5–37.1; O2SAT 90–97
[2024-05-13] MEDS: METOPROLOL TARTRATE 50 MG TAB PO ×4 (03:26→21:23)
[2024-05-13] MEDS: ACETAMINOPHEN 325 MG TABLET 650 MG PO ×2 (04:46→11:38)
[2024-05-13 04:49] LABS: Basophils Absolute Auto 0.1 K/mm3 (0.0-0.1); Basophils Percent Auto 0.9 % (0.2-1.2); Eosinophils Absolute Auto 0.3 K/mm3 (0-0.3); Eosinophils Percent Auto 4.1 % (0-4.4); Hematocrit 40.9 % (42.0-52.0); Hemoglobin 13.3 g/dL (14.0-18.0); Immature Granulocyte Absolute 0.02 K/mm3 (0.00-0.031); Immature Granulocyte Percent A 0.2 % (0-0.5); Lymphocytes Absolute Auto 1.73 K/mm3 (0.9-3.2); Mean Corpuscular HGB Conc 32.5 g/dl (32-36); Mean Corpuscular Hemoglobin 32.7 pg (26-34); Mean Corpuscular Volume 100.5 fl (80-100); Mean Platelet Volume 9.3 fl (7.4-10.4); Monocytes Absolute Auto 0.9 K/mm3 (0.1-0.6); Monocytes Percent Auto 10.7 % (2.6-8.5); Neutrophils Absolute Auto 5.2 K/mm3 (1.3-6.7); Neutrophils Percent Auto 63.1 % (45.5-73.1); Platelet Count Result 239 k/mm3 (150-375); Red Blood Count 4.07 M/mm3 (4.6-6.20); Red Cell Distribution Width 14.1 % (11.5-14.5); White Blood Count 8.2 K/mm3 (4.5-10.0)
[2024-05-13] MEDS: LEVALBUTEROL NEB 1.25 MG/3 ML INHALATION ×4 (04:49→20:50)
--- NOTE | 2024-05-13 05:04 | PCRCNOTE ---
Patient did not want to be awakened for his 0200 updraft treatment. Patient woke up at 0445 and requested his updraft treatment; tx was given.
[2024-05-13 05:06] LABS: Alanine Aminotransferase 54 U/L (6-50); Albumin Level 4.2 g/dL (3.5-5.1); Alkaline Phosphatase 66 U/L (38-126); Anion Gap 8 mmol/L (4-12); Aspartate Amino Transferase 26 U/L (17-59); Bilirubin,Total 0.7 mg/dL (0.2-1.3); Blood Urea Nitrogen 37 mg/dL (9-20); Calcium 9.1 mg/dL (8.4-10.2); Carbon Dioxide 31 mmol/L (22-30); Chloride 101 mmol/L (98-107); Estimated CRCL calculation 59 ml/min; Estimated Glomerular Filt Rate 40; Glucose 109 mg/dL (65-110); Potassium 4.5 mmol/L (3.4-5.0); Sodium 140 mmol/L (137-145)
[2024-05-13] MEDS: SACUBITRIL/VALSARTAN 24-26 MG TABLET 1 TAB PO ×2 (09:30→21:23)
[2024-05-13] MEDS: DOXYCYCLINE HYCLATE 100 MG TABLET PO ×2 (09:30→21:22)
[2024-05-13] MEDS: APIXABAN 5 MG TABLET PO ×2 (09:30→21:22)
[2024-05-13] MEDS: FUROSEMIDE INJ 40 MG/4 ML VIAL IV PUSH (09:31)
[2024-05-13] MEDS: EMPAGLIFLOZIN 10 MG TABLET PO (09:31)
[2024-05-13] MEDS: AMIODARONE HCL 200 MG TABLET PO (09:31)
--- NOTE | 2024-05-13 11:30 | PM.PNCARD ---
Progress Note: A&P Assessment and Plan (1) Hypertension: Code(s): I10 - Essential (primary) hypertension Status: Acute (2) Acute decompensated heart failure: Code(s): I50.9 - Heart failure, unspecified Status: Inactive (3) Atrial flutter with rapid ventricular response: Code(s): I48.92 - Unspecified atrial flutter Status: Inactive Plan 63 year old man with hypertension hyperlipidemia presented with shortness of found atrial flutter with rapid ventricular rates as as decompensated systolic heart failure Acute decompensated systolic heart failure -continue Lasix 40 mg p.o. b.i.d. -will hold Entresto this morning anticipation anesthesia GARFIELD guided cardioversion -continue to hold spironolactone as blood pressures are low normal -continue Lopressor 50 mg p.o. q.6 hours -continue Jardiance 10 mg p.o. daily Atrial flutter with rapid ventricular rates -his volume status is okay to proceed with GARFIELD guided cardioversion today with anesthesia -given the degree of his left atrial enlargement, will most likely load with 300 mg of amiodarone IV to assist with cardioversion once left atrial appendage thrombus ruled out -continue Lopressor 50 mg q.6 hours -continue Eliquis 5 mg p.o. b.i.d. Hypertension -well controlled on Entresto 24-26 mg p.o. b.i.d. Subjective Date/time seen: 05/13/24 11:30 Interval history: He still has some exertional shortness of breath. Otherwise his shortness of breath at rest has resolved mostly. No further orthopnea. Lower extremity swelling resolved. No significant chest discomfort. Previously had chest discomfort at work. 05/13/2024: Review of Systems Review of Systems: All systems reviewed & are unremarkable except as noted in HPI and below (HPI) Cardiovascular: Cardiovascular: Reports as per HPI Respiratory: Respiratory: Reports as per HPI Exam Const: General: comfortable and no acute distress Other: Obese male HENMT: Mouth: Yes moist mucous membranes Eyes: General: appearance normal, both eyes and all related structures Sclera: sclerae normal EOM: EOMs intact bilaterally Neck: Neck: no JVD Resp: Effort & Inspection: normal respiratory effort Auscultation: rales and diminished lung sounds Cardio: Rate: tachycardic Rhythm: regular rhythm and abnormal rhythm Heart sounds: no murmurs Skin: General skin exam: normal color Neuro: Speech: normal speech Extrem: General: pedal edema Psych: Mental Status: mental status grossly normal Affect: normal affect Objective Data Vital Signs Vital Signs: Vital Signs - 24 hr 05/12/24 12:00 05/12/24 12:20 05/12/24 12:20 Temperature 36.6 C Pulse Rate 141 H 146 H Respiratory Rate 22 H Blood Pressure 154/94 H Pulse Oximetry 94 Oxygen Delivery Room Air Fraction of Inspired Oxygen 05/12/24 14:35 05/12/24 14:40 05/12/24 14:45 Temperature Pulse Rate 86 84 75 Respiratory Rate 18 20 31 H Blood Pressure 77/48 L 64/55 L 70/53 L Pulse Oximetry 97 94 93 Oxygen Delivery Room Air Room Air Room Air Fraction of Inspired Oxygen 05/12/24 14:50 05/12/24 14:55 05/12/24 15:00 Temperature Pulse Rate 90 89 80 Respiratory Rate 17 14 19 Blood Pressure 74/51 L 96/64 L 103/84 Pulse Oximetry 95 96 95 Oxygen Delivery Room Air Room Air Room Air Fraction of Inspired Oxygen 05/12/24 15:05 05/12/24 16:00 05/12/24 16:03 Temperature 36.3 C L Pulse Rate 86 88 89 Respiratory Rate 20 18 Blood Pressure 108/82 105/54 L Pulse Oximetry 96 96 Oxygen Delivery Room Air Fraction of Inspired Oxygen 05/12/24 16:35 05/12/24 16:35 05/12/24 18:00 Temperature Pulse Rate 90 78 Respiratory Rate Blood Pressure Pulse Oximetry Oxygen Delivery Room Air Fraction of Inspired Oxygen 05/12/24 19:54 05/12/24 19:56 05/12/24 20:00 Temperature 36.4 C Pulse Rate 84 84 86 Respiratory Rate 18 16 Blood Pressure 154/97 H Pulse Oximetry 96 96 Oxygen Delivery Room Air Fraction of Inspired Oxygen 05/12/24 20:13 05/12/24 20:15 05/12/24 20:22 Temperature Pulse Rate 80 82 82 Respiratory Rate 20 Blood Pressure Pulse Oximetry 93 Oxygen Delivery Room Air Fraction of Inspired Oxygen 05/12/24 20:24 05/12/24 22:00 05/13/24 00:00 Temperature 36.8 C Pulse Rate 84 90 80 Respiratory Rate 20 16 Blood Pressure 113/79 Pulse Oximetry 95 Oxygen Delivery Fraction of Inspired Oxygen 05/13/24 00:00 05/13/24 00:00 05/13/24 02:00 Temperature Pulse Rate 80 73 81 Respiratory Rate 16 Blood Pressure Pulse Oximetry 95 Oxygen Delivery Room Air Fraction of Inspired Oxygen 21 05/13/24 03:26 05/13/24 03:55 05/13/24 04:00 Temperature 37.1 C Pulse Rate 87 81 86 Respiratory Rate 16 16 Blood Pressure 97/53 L Pulse Oximetry 95 96 Oxygen Delivery Room Air Fraction of Inspired Oxygen 21 05/13/24 04:00 05/13/24 04:49 05/13/24 04:57 Temperature Pulse Rate 82 81 82 Respiratory Rate 20 20 Blood Pressure Pulse Oximetry Oxygen Delivery Fraction of Inspired Oxygen 05/13/24 06:00 05/13/24 07:30 05/13/24 07:30 Temperature Pulse Rate 78 81 Respiratory Rate 20 Blood Pressure Pulse Oximetry 97 Oxygen Delivery Room Air Fraction of Inspired Oxygen 05/13/24 07:30 05/13/24 07:41 05/13/24 08:00 Temperature 36.7 C Pulse Rate 82 82 87 Respiratory Rate 18 20 Blood Pressure 122/92 H Pulse Oximetry 96 Oxygen Delivery Fraction of Inspired Oxygen 05/13/24 10:00 Temperature Pulse Rate 85 Respiratory Rate Blood Pressure Pulse Oximetry Oxygen Delivery Fraction of Inspired Oxygen Intake/Output Intake/Output: Intake & Output 05/10/24 05/11/24 05/12/24 05/13/24 23:59 23:59 23:59 23:59 Intake Total 696.6 2011.6 960 472 Output Total 1150 7600 2451 1275 [facility]453.4 -5588.4 -1491 -803 Meds/Results Medications: Active Medications Generic Name Dose Route Start Last Admin Trade Name Freq PRN Reason Stop Dose Admin Acetaminophen 650 mg 05/12/24 22:24 05/13/24 04:46 Acetaminophen 325 Mg Tablet PO 650 mg Q6H PRN Administration Mild Pain (1-3) or Fever Amiodarone HCl 200 mg 05/13/24 08:00 05/13/24 09:31 Amiodarone Hcl 200 Mg Tablet PO 200 mg DAILY@0800 MAEGAN Administration Apixaban 5 mg 05/11/24 09:45 05/13/24 09:30 Apixaban 5 Mg Tablet PO 5 mg Q12HR MAEGAN Administration Doxycycline Hyclate 100 mg 05/11/24 09:00 05/13/24 09:30 Doxycycline Hyclate 100 Mg Tablet PO 100 mg Q12HR MAEGAN Administration Empagliflozin 10 mg 05/11/24 09:00 05/13/24 09:31 Empagliflozin 10 Mg Tablet PO 10 mg DAILY MAEGAN Administration Furosemide 40 mg 05/11/24 09:45 05/13/24 09:31 Furosemide Inj 40 Mg/4 Ml Vial IV PUSH 40 mg BID MAEGAN Administration Ceftriaxone Sodium 1 gm in 50 mls @ 100 mls/hr 05/11/24 16:00 05/12/24 16:04 Rocephin 1 Gm/Ns 50 Ml IVPB 100 mls/hr Q24H MAEGAN Administration Levalbuterol HCl 1.25 mg 05/11/24 21:15 05/13/24 07:27 Levalbuterol Neb 1.25 Mg/3 Ml INHALATION 1.25 mg Q6HRT MAEGAN Administration Metoprolol Succinate 200 mg 05/14/24 09:00 Metoprolol Succinate Ext Rel 100 Mg Tabcr PO QAM MAEGAN Metoprolol Tartrate 50 mg 05/11/24 09:45 05/13/24 09:30 Metoprolol Tartrate 50 Mg Tab PO 05/13/24 23:59 50 mg Q6H MAEGAN Administration Perflutren Lipid Microsphere 0 ml 05/10/24 17:11 Perflutren Lipid Microspheres 1.5 Ml Vial Diluted To 10 Ml Total Volume IV PUSH 05/13/24 17:12 ONCE PRN adequate visualization Protocol Sacubitril/Valsartan 1 tab 05/11/24 09:00 05/13/24 09:30 Sacubitril/Valsartan 24-26 Mg Tablet PO 1 tab Q12HR MAEGAN Administration Sodium Zirconium Cyclosilicate 5 gm 05/12/24 10:00 05/12/24 12:06 Sodium Zirconium Cyclosilicate 5 Gm Powd.Pack PO 5 gm DAILY@1000 MAEGAN Administration Spironolactone 12.5 mg 05/11/24 09:00 05/12/24 10:49 Spironolactone 12.5 Mg Tablet PO Not Given QAM [facility] Radiology Results: ITS Impressions Chest CTA 05/10/24 14:19 IMPRESSION: 1. No pulmonary embolism. 2. Mediastinal lymphadenopathy. Clinical correlation advised. 3. Bilateral pleural effusion with adjacent atelectasis. Focal area of pneumonia in the left lower lobe laterally. Venous Doppler Study 05/10/24 14:50 IMPRESSION: Negative bilateral lower extremity venous US. No deep vein thrombosis. Bilateral Chisholm's cyst. Chest X-Ray 05/10/24 14:54 IMPRESSION: Cardiomegaly with cardiac decompensation and pulmonary edema. Pneumonitis is not excluded. Labs Labs: Laboratory Results - last 24 hr 05/13/24 05/13/24 04:36 04:37 WBC 8.2 RBC 4.07 L Hgb 13.3 L Hct 40.9 L MCV 100.5 H MCH 32.7 MCHC 32.5 RDW 14.1 Plt Count 239 MPV 9.3 Immature Gran % (Auto) 0.2 Neut % (Auto) 63.1 Lymph % (Auto) 21.0 [place] % (Auto) 10.7 H Eos % (Auto) 4.1 Baso % (Auto) 0.9 Lymph # (Auto) 1.73 [place] # (Auto) 0.9 H Eos # (Auto) 0.3 Baso # (Auto) 0.1 Abs Immat Gran (auto) 0.02 Absolute Neuts (auto) 5.2 Absolute Nucleated RBC 0.000 Nucleated RBC % 0.0 Sodium 140 Potassium 4.5 Chloride 101 Carbon Dioxide 31 H Anion Gap 8 BUN 37 H D Creatinine 1.72 H Estim Creat Clear Calc 59 Estimated GFR 40 L Glucose 109 Calcium 9.1 Total Bilirubin 0.7 AST 26 ALT 54 H Alkaline Phosphatase 66 Total Protein 7.0 Albumin 4.2 Quality VTE Prophylaxis VTE prophylaxis: pharmacologic ordered
[2024-05-13] MEDS: SODIUM ZIRCONIUM CYCLOSILICATE 5 GM POWD.PACK PO (11:39)
--- NOTE | 2024-05-13 11:53 | P.PNCA_ITS ---
Progress Note: A&P Assessment and Plan (1) Atrial flutter with rapid ventricular response: Code(s): I48.92 - Unspecified atrial flutter Status: Acute Plan 1. Atrial flutter with RVR. New diagnosis of atrial flutter. S/p successful GARFIELD- guided DCCV 05/12. [id number] of 2 for CHF and hypertension. 2. Heart failure with reduced LVEF of 20-25% per TTE 05/11/2024. 3. KIM 4. Hypertension 5. Hyperlipidemia 6. Obesity with BMI of 37 PLAN -S/p successful cardioversion 05/13. Remains in sinus rhythm. Continue Metoprolol, will transition to succinate given reduced LVEF. Continue Amiodarone 200mg once daily. Continue Eliquis 5mg BID for stroke risk reduction. -Needs outpatient sleep study to evaluate for JESSICA. -Continue Entresto, Spironolactone, Jardiance. Will transition Metoprolol to succinate. -Given KIM, will hold Lasix for today. KIM likely due to overdiuresis. Once KIM resolves, would start him on PO Lasix for maintenance diuretic therapy. From my standpoint, he can be discharged once KIM improves, anticipate discharge over the weekend. Will arrange close outpatient follow up in our office. Subjective Date/time seen: 05/13/24 11:53 Interval history: Reason for visit: Atrial flutter with RVR, CHF HPI: We are consulted for atrial flutter with RVR, CHF. Hill is a 63 year old male with hypertension, hyperlipidemia, asthma, kidney stones, arthritis who presented to [place] for shortness of breath. Does not take any medications at home, and has not seen a physician in years. He reports ongoing shortness of breath and feelings of irregular heart beat for 2 weeks now. In the ED, noted to be in atrial flutter with RVR. Bedside echocardiogram by ER MD showed severely reduced LVEF, therefore, he was started on Amiodarone rather than Diltiazem drip. Started on Heparin drip. Workup shows troponins of 0.062, 0.064, 0.068. NT pro BNP of 2190. TSH level normal. Chest CTA shows no pulmonary embolism, bilateral pleural effusion, focal area of pneumonia in the left lower lobe laterally. EKG shows atrial flutter with RVR. Date of service 05/12: He still has some exertional shortness of breath. Otherwise his shortness of breath at rest has resolved mostly. No further orthopnea. Lower extremity swelling resolved. No significant chest discomfort. Previously had chest discomfort at work. Date of service 05/13: S/p successful cardioversion. Remains in sinus rhythm. Has been urinating a lot. Review of Systems Review of Systems: All systems reviewed & are unremarkable except as noted in HPI and below (HPI) Exam Const: General: no acute distress HENMT: Mouth: Yes moist mucous membranes Eyes: General: appearance normal, both eyes and all related structures Sclera: sclerae normal Resp: Effort & Inspection: normal respiratory effort Auscultation: clear to auscultation bilaterally Cardio: Rate: regular rate Rhythm: regular rhythm Skin: General skin exam: normal color Neuro: Speech: normal speech Psych: Mental Status: mental status grossly normal Affect: normal affect Objective Data Vital Signs Vital Signs: Vital Signs - 24 hr 05/12/24 12:00 05/12/24 12:20 05/12/24 12:20 Temperature 36.6 C Pulse Rate 141 H 146 H Respiratory Rate 22 H Blood Pressure 154/94 H Pulse Oximetry 94 Oxygen Delivery Room Air Fraction of Inspired Oxygen 05/12/24 14:35 05/12/24 14:40 05/12/24 14:45 Temperature Pulse Rate 86 84 75 Respiratory Rate 18 20 31 H Blood Pressure 77/48 L 64/55 L 70/53 L Pulse Oximetry 97 94 93 Oxygen Delivery Room Air Room Air Room Air Fraction of Inspired Oxygen 05/12/24 14:50 05/12/24 14:55 05/12/24 15:00 Temperature Pulse Rate 90 89 80 Respiratory Rate 17 14 19 Blood Pressure 74/51 L 96/64 L 103/84 Pulse Oximetry 95 96 95 Oxygen Delivery Room Air Room Air Room Air Fraction of Inspired Oxygen 05/12/24 15:05 05/12/24 16:00 05/12/24 16:03 Temperature 36.3 C L Pulse Rate 86 88 89 Respiratory Rate 20 18 Blood Pressure 108/82 105/54 L Pulse Oximetry 96 96 Oxygen Delivery Room Air Fraction of Inspired Oxygen 05/12/24 16:35 05/12/24 16:35 05/12/24 18:00 Temperature Pulse Rate 90 78 Respiratory Rate Blood Pressure Pulse Oximetry Oxygen Delivery Room Air Fraction of Inspired Oxygen 05/12/24 19:54 05/12/24 19:56 05/12/24 20:00 Temperature 36.4 C Pulse Rate 84 84 86 Respiratory Rate 18 16 Blood Pressure 154/97 H Pulse Oximetry 96 96 Oxygen Delivery Room Air Fraction of Inspired Oxygen 05/12/24 20:13 05/12/24 20:15 05/12/24 20:22 Temperature Pulse Rate 80 82 82 Respiratory Rate 20 Blood Pressure Pulse Oximetry 93 Oxygen Delivery Room Air Fraction of Inspired Oxygen 05/12/24 20:24 05/12/24 22:00 05/13/24 00:00 Temperature 36.8 C Pulse Rate 84 90 80 Respiratory Rate 20 16 Blood Pressure 113/79 Pulse Oximetry 95 Oxygen Delivery Fraction of Inspired Oxygen 05/13/24 00:00 05/13/24 00:00 05/13/24 02:00 Temperature Pulse Rate 80 73 81 Respiratory Rate 16 Blood Pressure Pulse Oximetry 95 Oxygen Delivery Room Air Fraction of Inspired Oxygen 21 05/13/24 03:26 05/13/24 03:55 05/13/24 04:00 Temperature 37.1 C Pulse Rate 87 81 86 Respiratory Rate 16 16 Blood Pressure 97/53 L Pulse Oximetry 95 96 Oxygen Delivery Room Air Fraction of Inspired Oxygen 21 05/13/24 04:00 05/13/24 04:49 05/13/24 04:57 Temperature Pulse Rate 82 81 82 Respiratory Rate 20 20 Blood Pressure Pulse Oximetry Oxygen Delivery Fraction of Inspired Oxygen 05/13/24 06:00 05/13/24 07:30 05/13/24 07:30 Temperature Pulse Rate 78 81 Respiratory Rate 20 Blood Pressure Pulse Oximetry 97 Oxygen Delivery Room Air Fraction of Inspired Oxygen 05/13/24 07:30 05/13/24 07:41 05/13/24 08:00 Temperature 36.7 C Pulse Rate 82 82 87 Respiratory Rate 18 20 Blood Pressure 122/92 H Pulse Oximetry 96 Oxygen Delivery Fraction of Inspired Oxygen 05/13/24 10:00 Temperature Pulse Rate 85 Respiratory Rate Blood Pressure Pulse Oximetry Oxygen Delivery Fraction of Inspired Oxygen Intake/Output Intake/Output: Intake & Output 05/10/24 05/11/24 05/12/24 05/13/24 23:59 23:59 23:59 23:59 Intake Total 696.6 2011.6 960 472 Output Total 1150 7600 2451 1275 [facility] -453.4 -5588.4 -1491 -803 Meds/Results Medications: Active Medications Generic Name Dose Route Start Last Admin Trade Name Freq PRN Reason Stop Dose Admin Acetaminophen 650 mg 05/12/24 22:24 05/13/24 11:38 Acetaminophen 325 Mg Tablet PO 650 mg Q6H PRN Administration Mild Pain (1-3) or Fever Amiodarone HCl 200 mg 05/13/24 08:00 05/13/24 09:31 Amiodarone Hcl 200 Mg Tablet PO 200 mg DAILY@0800 MAEGAN Administration Apixaban 5 mg 05/11/24 09:45 05/13/24 09:30 Apixaban 5 Mg Tablet PO 5 mg Q12HR MAEGAN Administration Doxycycline Hyclate 100 mg 05/11/24 09:00 05/13/24 09:30 Doxycycline Hyclate 100 Mg Tablet PO 100 mg Q12HR MAEGAN Administration Empagliflozin 10 mg 05/11/24 09:00 05/13/24 09:31 Empagliflozin 10 Mg Tablet PO 10 mg DAILY MAEGAN Administration Furosemide 40 mg 05/11/24 09:45 05/13/24 09:31 Furosemide Inj 40 Mg/4 Ml Vial IV PUSH 40 mg BID MAEGAN Administration Ceftriaxone Sodium 1 gm in 50 mls @ 100 mls/hr 05/11/24 16:00 05/12/24 16:04 Rocephin 1 Gm/Ns 50 Ml IVPB 100 mls/hr Q24H MAEGAN Administration Levalbuterol HCl 1.25 mg 05/11/24 21:15 05/13/24 07:27 Levalbuterol Neb 1.25 Mg/3 Ml INHALATION 1.25 mg Q6HRT MAEGAN Administration Metoprolol Succinate 200 mg 05/14/24 09:00 Metoprolol Succinate Ext Rel 100 Mg Tabcr PO QAM MAEGAN Metoprolol Tartrate 50 mg 05/11/24 09:45 05/13/24 09:30 Metoprolol Tartrate 50 Mg Tab PO 05/13/24 23:59 50 mg Q6H MAEGAN Administration Perflutren Lipid Microsphere 0 ml 05/10/24 17:11 Perflutren Lipid Microspheres 1.5 Ml Vial Diluted To 10 Ml Total Volume IV PUSH 05/13/24 17:12 ONCE PRN adequate visualization Protocol Sacubitril/Valsartan 1 tab 05/11/24 09:00 05/13/24 09:30 Sacubitril/Valsartan 24-26 Mg Tablet PO 1 tab Q12HR [facility] Administration Sodium Zirconium Cyclosilicate 5 gm 05/12/24 10:00 05/13/24 11:39 Sodium Zirconium Cyclosilicate 5 Gm Powd.Pack PO 5 gm DAILY@1000 MAEGAN Administration Spironolactone 12.5 mg 05/11/24 09:00 05/12/24 10:49 Spironolactone 12.5 Mg Tablet PO Not Given QAM [facility] Radiology Results: ITS Impressions Chest CTA 05/10/24 14:19 IMPRESSION: 1. No pulmonary embolism. 2. Mediastinal lymphadenopathy. Clinical correlation advised. 3. Bilateral pleural effusion with adjacent atelectasis. Focal area of pneumonia in the left lower lobe laterally. Venous Doppler Study 05/10/24 14:50 IMPRESSION: Negative bilateral lower extremity venous US. No deep vein thrombosis. Bilateral Chisholm's cyst. Chest X-Ray 05/10/24 14:54 IMPRESSION: Cardiomegaly with cardiac decompensation and pulmonary edema. Pneumonitis is not excluded. Labs Labs: Laboratory Results - last 24 hr 05/13/24 05/13/24 04:36 04:37 WBC 8.2 RBC 4.07 L Hgb 13.3 L Hct 40.9 L MCV 100.5 H MCH 32.7 MCHC 32.5 RDW 14.1 Plt Count 239 MPV 9.3 Immature Gran % (Auto) 0.2 Neut % (Auto) 63.1 Lymph % (Auto) 21.0 [place] % (Auto) 10.7 H Eos % (Auto) 4.1 Baso % (Auto) 0.9 Lymph # (Auto) 1.73 [place] # (Auto) 0.9 H Eos # (Auto) 0.3 Baso # (Auto) 0.1 Abs Immat Gran (auto) 0.02 Absolute Neuts (auto) 5.2 Absolute Nucleated RBC 0.000 Nucleated RBC % 0.0 Sodium 140 Potassium 4.5 Chloride 101 Carbon Dioxide 31 H Anion Gap 8 BUN 37 H D Creatinine 1.72 H Estim Creat Clear Calc 59 Estimated GFR 40 L Glucose 109 Calcium 9.1 Total Bilirubin 0.7 AST 26 ALT 54 H Alkaline Phosphatase 66 Total Protein 7.0 Albumin 4.2
--- NOTE | 2024-05-13 13:15 | ECG_ITS ---
Test Date: 2024-05-13 13:46:46 Measurements Intervals [place] Rate: 79 P: 47 WA: 179 QRS: 73 QRSD: 114 T: 71 QT: 420 QTc: 483 Interpretive Statements SINUS RHYTHM WITH OCCASIONAL VENTRICULAR PREMATURE COMPLEXES INTRAVENTRICULAR CONDUCTION DELAY Electronically Signed On 05-15-2024 13:50:45 CDT by Justin Berry D.O
--- NOTE | 2024-05-13 17:29 | P.PNIM_ITS ---
Progress Note: A&P Assessment and Plan (1) Non-STEMI (non-ST elevated myocardial infarction): Code(s): I21.4 - Non-ST elevation (NSTEMI) myocardial infarction Status: Acute (2) Unspecified atrial flutter: Code(s): I48.92 - Unspecified atrial flutter Status: Acute (3) Heart failure, unspecified: Code(s): I50.9 - Heart failure, unspecified Status: Acute (4) Community acquired pneumonia: Code(s): J18.9 - Pneumonia, unspecified organism Status: Acute (5) Asthma: Code(s): J45.909 - Unspecified asthma, uncomplicated Status: Acute (6) Hypertension: Code(s): I10 - Essential (primary) hypertension Status: Acute (7) Hyperlipidemia: Code(s): E78.5 - Hyperlipidemia, unspecified Status: Acute Plan Patient had not been seen any provider for over 2 yrs, patient had on going symptoms for 2 weeks, besides atrial flutter with RVR, ECHO showed poor EF, patient was treated in the ER with amiodarone infusion and which slow the HR, patient is treated with lasix, patient is seen by cardio recommending GARFIELD-guided DCCV, chest x-ray is also concerning for pneumonia most likely community- acquired being treated with ceftriaxone and azithromycin, cardiac echo showed moderately reduced ejection fraction 20-25%, patient will need LifeVest prior to discharge, today patient stats feeling better compared to when he arrived den ies any chest pain shortness of breath or palpitation, on 05/12 patient had GARFIELD guided cardioversion and it was successful and now patient is NSR patient was anxious about the procedure, will continue to monitor will follow-up and further recommendation to follow. Subjective Date/time seen: 05/13/24 17:29 Interval history: Patient had not been seen any provider for over 2 yrs, patient had on going symptoms for 2 weeks, besides atrial flutter with RVR, ECHO showed poor EF, patient was treated in the ER with amiodarone infusion and which slow the HR, patient is treated with lasix, patient is seen by cardio recommending GARFIELD-guided DCCV, chest x-ray is also concerning for pneumonia most likely community- acquired being treated with ceftriaxone and azithromycin, cardiac echo showed moderately reduced ejection fraction 20-25%, patient will need LifeVest prior to discharge, today patient stats feeling better compared to when he arrived denies any chest pain shortness of breath or palpitation, on 05/12 patient had GARFIELD guided cardioversion and it was successful and now patient is NSR patient was anxious about the procedure, will continue to monitor will follow-up and further recommendation to follow. Review of Systems Review of Systems: All systems reviewed & are unremarkable except as noted in HPI and below Exam Narrative: Morbidly obese Patient is comfortable, NAD HEENT: eyes are clear and none icteric LUNGS: Bilateral fair entry with rales and rhonchi HEART: Irregularly irregular ABD: BS+, Soft and nontender Lower extremities: edema SKIN: nonjaundiced Neuro: grossly intact. Objective Data Vital Signs Vital Signs: Vital Signs - 24 hr 05/12/24 18:00 05/12/24 19:54 05/12/24 19:56 Temperature 36.4 C Pulse Rate 78 84 84 Respiratory Rate 18 16 Blood Pressure 154/97 H Pulse Oximetry 96 96 Oxygen Delivery Room Air Fraction of Inspired Oxygen 05/12/24 20:00 05/12/24 20:13 05/12/24 20:15 Temperature Pulse Rate 86 80 82 Respiratory Rate 20 Blood Pressure Pulse Oximetry Oxygen Delivery Fraction of Inspired Oxygen 05/12/24 20:22 05/12/24 20:24 05/12/24 22:00 Temperature Pulse Rate 82 84 90 Respiratory Rate 20 Blood Pressure Pulse Oximetry 93 Oxygen Delivery Room Air Fraction of Inspired Oxygen 05/13/24 00:00 05/13/24 00:00 05/13/24 00:00 Temperature 36.8 C Pulse Rate 80 80 73 Respiratory Rate 16 16 Blood Pressure 113/79 Pulse Oximetry 95 95 Oxygen Delivery Room Air Fraction of Inspired Oxygen 21 05/13/24 02:00 05/13/24 03:26 05/13/24 03:55 Temperature Pulse Rate 81 87 81 Respiratory Rate 16 Blood Pressure Pulse Oximetry 95 Oxygen Delivery Room Air Fraction of Inspired Oxygen 05/13/24 04:00 05/13/24 04:00 05/13/24 04:49 Temperature 37.1 C Pulse Rate 86 82 81 Respiratory Rate 16 20 Blood Pressure 97/53 L Pulse Oximetry 96 Oxygen Delivery Fraction of Inspired Oxygen 05/13/24 04:57 05/13/24 06:00 05/13/24 07:30 Temperature Pulse Rate 82 78 Respiratory Rate 20 Blood Pressure Pulse Oximetry 97 Oxygen Delivery Room Air Fraction of Inspired Oxygen 05/13/24 07:30 05/13/24 07:30 05/13/24 07:41 Temperature 36.7 C Pulse Rate 81 82 82 Respiratory Rate 20 18 20 Blood Pressure 122/92 H Pulse Oximetry 96 Oxygen Delivery Fraction of Inspired Oxygen 05/13/24 08:00 05/13/24 10:00 05/13/24 12:00 Temperature 36.5 C Pulse Rate 87 85 77 Respiratory Rate 22 H Blood Pressure 101/44 L Pulse Oximetry 96 Oxygen Delivery Fraction of Inspired Oxygen 05/13/24 12:00 05/13/24 14:00 05/13/24 14:03 Temperature Pulse Rate 87 81 82 Respiratory Rate 18 Blood Pressure Pulse Oximetry Oxygen Delivery Fraction of Inspired Oxygen 05/13/24 14:09 05/13/24 16:00 Temperature 36.5 C Pulse Rate 86 83 Respiratory Rate 18 22 H Blood Pressure 96/53 L Pulse Oximetry 92 Oxygen Delivery Fraction of Inspired Oxygen Intake/Output Intake/Output: Intake & Output 05/10/24 05/11/24 05/12/24 05/13/24 23:59 23:59 23:59 23:59 Intake Total 696.6 2011.6 1010 2249 Output Total 1150 5120 6127 2125 [place] [address].4 -5588.4 -1441 124 Meds/Results Medications: Active Medications Generic Name Dose Route Start Last Admin Trade Name Freq PRN Reason Stop Dose Admin Acetaminophen 650 mg 05/12/24 22:24 05/13/24 11:38 Acetaminophen 325 Mg Tablet PO 650 mg Q6H PRN Administration Mild Pain (1-3) or Fever Hydrocodone Bitart/Acetaminophen 1 tab 05/13/24 15:05 Hydrocodone/Acetaminophen (*Crx) 5-325 Mg Tablet PO Q6H PRN Pain Rated 4-6 Amiodarone HCl 200 mg 05/13/24 08:00 05/13/24 09:31 Amiodarone Hcl 200 Mg Tablet PO 200 mg DAILY@0800 MAEGAN Administration Apixaban 5 mg 05/11/24 09:45 05/13/24 09:30 Apixaban 5 Mg Tablet PO 5 mg Q12HR MAEGAN Administration Doxycycline Hyclate 100 mg 05/11/24 09:00 05/13/24 09:30 Doxycycline Hyclate 100 Mg Tablet PO 100 mg Q12HR MAEGAN Administration Empagliflozin 10 mg 05/11/24 09:00 05/13/24 09:31 Empagliflozin 10 Mg Tablet PO 10 mg DAILY MAEGAN Administration Furosemide 40 mg 05/11/24 09:45 05/13/24 09:31 Furosemide Inj 40 Mg/4 Ml Vial IV PUSH 40 mg BID MAEGAN Administration Ceftriaxone Sodium 1 gm in 50 mls @ 100 mls/hr 05/11/24 16:00 05/13/24 15:53 Rocephin 1 Gm/Ns 50 Ml IVPB 100 mls/hr Q24H MAEGAN Administration Levalbuterol HCl 1.25 mg 05/11/24 21:15 05/13/24 14:03 Levalbuterol Neb 1.25 Mg/3 Ml INHALATION 1.25 mg Q6HRT MAEGAN Administration Metoprolol Succinate 200 mg 05/14/24 09:00 Metoprolol Succinate Ext Rel 100 Mg Tabcr PO QAM [facility] Metoprolol Tartrate 50 mg 05/11/24 09:45 05/13/24 15:52 Metoprolol Tartrate 50 Mg Tab PO 05/13/24 23:59 50 mg Q6H MAEGAN Administration Sacubitril/Valsartan 1 tab 05/11/24 09:00 05/13/24 09:30 Sacubitril/Valsartan 24-26 Mg Tablet PO 1 tab Q12HR MAEGAN Administration Sodium Zirconium Cyclosilicate 5 gm 05/12/24 10:00 05/13/24 11:39 Sodium Zirconium Cyclosilicate 5 Gm Powd.Pack PO 5 gm DAILY@1000 MAEGAN Administration Spironolactone 12.5 mg 05/11/24 09:00 05/12/24 10:49 Spironolactone 12.5 Mg Tablet PO Not Given [facility] Radiology Results: ITS Impressions Chest CTA 05/10/24 14:19 IMPRESSION: 1. No pulmonary embolism. 2. Mediastinal lymphadenopathy. Clinical correlation advised. 3. Bilateral pleural effusion with adjacent atelectasis. Focal area of pneumonia in the left lower lobe laterally. Venous Doppler Study 05/10/24 14:50 IMPRESSION: Negative bilateral lower extremity venous US. No deep vein thrombosis. Bilateral Chisholm's cyst. Chest X-Ray 05/10/24 14:54 IMPRESSION: Cardiomegaly with cardiac decompensation and pulmonary edema. Pneumonitis is not excluded. Labs Labs: Laboratory Results - last 24 hr 05/13/24 05/13/24 04:36 04:37 WBC 8.2 RBC 4.07 L Hgb 13.3 L Hct 40.9 L MCV 100.5 H MCH 32.7 MCHC 32.5 RDW 14.1 Plt Count 239 MPV 9.3 Immature Gran % (Auto) 0.2 Neut % (Auto) 63.1 Lymph % (Auto) 21.0 [place] % (Auto) 10.7 H Eos % (Auto) 4.1 Baso % (Auto) 0.9 Lymph # (Auto) 1.73 [place] # (Auto) 0.9 H Eos # (Auto) 0.3 Baso # (Auto) 0.1 Abs Immat Gran (auto) 0.02 Absolute Neuts (auto) 5.2 Absolute Nucleated RBC 0.000 Nucleated RBC % 0.0 Sodium 140 Potassium 4.5 Chloride 101 Carbon Dioxide 31 H Anion Gap 8 BUN 37 H D Creatinine 1.72 H Estim Creat Clear Calc 59 Estimated GFR 40 L Glucose 109 Calcium 9.1 Total Bilirubin 0.7 AST 26 ALT 54 H Alkaline Phosphatase 66 Total Protein 7.0 Albumin 4.2 Quality VTE Prophylaxis VTE prophylaxis: pharmacologic ordered
[2024-05-13] MEDS: HYDROcodone/acetaminophen (*CRX) 5-325 MG TABLET 1 TAB PO (21:22)
[2024-05-14] VITALS (24 sets, daily range): BP systolic 82–122; BP diastolic 60–93; PULSE 74–98; RESP 18–24; TEMP 35.9–37.7; O2SAT 91–96
[2024-05-14] MEDS: LEVALBUTEROL NEB 1.25 MG/3 ML INHALATION ×4 (02:44→20:33)
[2024-05-14] MEDS: HYDROcodone/acetaminophen (*CRX) 5-325 MG TABLET 1 TAB PO ×4 (03:49→23:29)
[2024-05-14 04:29] LABS: Basophils Absolute Auto 0.1 K/mm3 (0.0-0.1); Basophils Percent Auto 0.7 % (0.2-1.2); Eosinophils Absolute Auto 0.3 K/mm3 (0-0.3); Eosinophils Percent Auto 4.3 % (0-4.4); Hematocrit 39.8 % (42.0-52.0); Immature Granulocyte Absolute 0.02 K/mm3 (0.00-0.031); Immature Granulocyte Percent A 0.3 % (0-0.5); Lymphocytes Absolute Auto 1.24 K/mm3 (0.9-3.2); Lymphocytes Percent Auto 16.6 % (18.3-44.2); Mean Corpuscular HGB Conc 32.7 g/dl (32-36); Mean Corpuscular Hemoglobin 32.7 pg (26-34); Mean Corpuscular Volume 100.3 fl (80-100); Mean Platelet Volume 9.5 fl (7.4-10.4); Monocytes Absolute Auto 0.8 K/mm3 (0.1-0.6); Monocytes Percent Auto 10.5 % (2.6-8.5); Neutrophils Percent Auto 67.6 % (45.5-73.1); Platelet Count Result 215 k/mm3 (150-375); Red Blood Count 3.97 M/mm3 (4.6-6.20); Red Cell Distribution Width 14.1 % (11.5-14.5); White Blood Count 7.5 K/mm3 (4.5-10.0)
[2024-05-14 04:42] LABS: Alanine Aminotransferase 41 U/L (6-50); Alkaline Phosphatase 67 U/L (38-126); Anion Gap 9 mmol/L (4-12); Aspartate Amino Transferase 22 U/L (17-59); Bilirubin,Total 0.8 mg/dL (0.2-1.3); Blood Urea Nitrogen 32 mg/dL (9-20); Calcium 8.9 mg/dL (8.4-10.2); Carbon Dioxide 24 mmol/L (22-30); Chloride 104 mmol/L (98-107); Estimated CRCL calculation 78 ml/min; Estimated Glomerular Filt Rate 57; Glucose 109 mg/dL (65-110); Magnesium 2.2 mg/dL (1.6-2.3); Potassium 4.3 mmol/L (3.4-5.0); Sodium 137 mmol/L (137-145)
[2024-05-14] MEDS: SACUBITRIL/VALSARTAN 24-26 MG TABLET 1 TAB PO ×2 (10:02→20:20)
[2024-05-14] MEDS: DOXYCYCLINE HYCLATE 100 MG TABLET PO ×2 (10:02→20:20)
[2024-05-14] MEDS: AMIODARONE HCL 200 MG TABLET PO (10:02)
[2024-05-14] MEDS: APIXABAN 5 MG TABLET PO ×2 (10:02→20:21)
[2024-05-14] MEDS: METOPROLOL SUCCINATE EXT REL 100 MG TABCR 200 MG PO (10:03)
[2024-05-14] MEDS: EMPAGLIFLOZIN 10 MG TABLET PO (10:03)
[2024-05-14] MEDS: SODIUM ZIRCONIUM CYCLOSILICATE 5 GM POWD.PACK PO (10:03)
--- NOTE | 2024-05-14 11:54 | PM.PNCARD ---
Progress Note: A&P Assessment and Plan (1) Atrial flutter with rapid ventricular response: Code(s): I48.92 - Unspecified atrial flutter Status: Acute Plan 1. Atrial flutter with RVR. New diagnosis of atrial flutter. S/p successful GARFIELD-guided DCCV 05/12. [id number] of 2 for CHF and hypertension. 2. Heart failure with reduced LVEF of 20-25% per TTE 05/11/2024. 3. KIM-creatinine improving 4. Hypertension 5. Hyperlipidemia 6. Obesity with BMI of 37 PLAN -guideline directed medical treatment for CHF with reduced ejection fraction. Continue metoprolol succinate, sacubitril/valsartan, empagliflozin and spironolactone. -IV diuresis was put on hold due to KIM. Creatinine has improved. Initiate maintenance diuresis with furosemide 40 mg p.o. daily with close monitoring of electrolytes and renal function. -patient has still ectopy and episodes of NSVT on telemetry. In light of CHF with severely reduced ejection fraction, recommend external wearable defibrillator-life vest at discharge. -ischemic evaluation can be considered as an outpatient. -S/p successful cardioversion 05/13. Remains in sinus rhythm. Continue metoprolol succinate. Anticoagulation with apixaban. -recommend pulmonology evaluation. May need PFT as an outpatient. Patient has diminished breath sounds on physical exam and reported history of occupational exposure to dust and ?Chemicals. Subjective Date/time seen: 05/14/24 11:54 Interval history: 05/14/2024-patient reports that his dyspnea has modestly improved. He still has shortness of breath and subjective wheezing. On telemetry, patient has predominantly been in sinus rhythm, PVCs and occasional brief NSVT. Review of Systems Review of Systems: General: Positive for fatigue Psychological: Negative for anxiety, depression Ophthalmic: negative for loss of vision ENT: Negative for epistaxis, headaches Allergy and immunology: Negative for hives, nasal congestion Hematologic and lymphatic: Negative for overt bleeding problems Endocrine: Negative for hot flashes, palpitations Respiratory: Positive for dyspnea and wheezing Cardiovascular: Dyspnea modestly improved Gastrointestinal: Negative for abdominal pain, nausea, vomiting, hematochezia Musculoskeletal: Negative for myalgia, joint pains Neurological: Negative for weakness Dermatological: Negative for rash, skin discoloration Exam Narrative: PHYSICAL EXAMINATION: GENERAL: Alert, oriented, no acute distress MENTAL STATUS: affect appropriate to mood EYES: Extraocular movements intact, no pallor EARS: External ears appear normal, hearing grossly normal NOSE: Normal and patent, no discharge MOUTH: Mucous membranes moist, tongue normal NECK: Supple, JVD CHEST: Diminished breath sounds HEART: Normal rate, regular rhythm, normal S1 and S2 ABDOMEN: Soft, nontender NEUROLOGICAL: Alert, oriented, normal speech, no gross motor deficits MUSCULOSKELETAL: No major deformity, no amputation EXTREMITIES: Trace pedal edema, no clubbing, no cyanosis SKIN: no rash on the exposed area, no cyanosis PSYCHIATRIC: Normal mood, appropriate affect Objective Data Vital Signs Vital Signs: Vital Signs - 24 hr 05/13/24 12:00 05/13/24 12:00 05/13/24 14:00 Temperature 36.5 C Pulse Rate 77 87 81 Respiratory Rate 22 H Blood Pressure 101/44 L Pulse Oximetry 96 Oxygen Delivery 05/13/24 14:03 05/13/24 14:09 05/13/24 16:00 Temperature 36.5 C Pulse Rate 82 86 83 Respiratory Rate 18 18 22 H Blood Pressure 96/53 L Pulse Oximetry 92 Oxygen Delivery 05/13/24 16:00 05/13/24 18:00 05/13/24 20:00 Temperature Pulse Rate 85 74 83 Respiratory Rate Blood Pressure Pulse Oximetry Oxygen Delivery 05/13/24 20:34 05/13/24 20:50 05/13/24 20:55 Temperature 36.5 C Pulse Rate 85 87 84 Respiratory Rate 22 H 22 H 22 H Blood Pressure 119/95 H Pulse Oximetry 90 Oxygen Delivery 05/13/24 21:15 05/13/24 21:23 05/13/24 22:00 Temperature Pulse Rate 86 85 Respiratory Rate Blood Pressure Pulse Oximetry Oxygen Delivery Room Air 05/14/24 00:00 05/14/24 00:30 05/14/24 00:36 Temperature 36.5 C Pulse Rate 81 74 Respiratory Rate 22 H Blood Pressure 122/93 H Pulse Oximetry 91 Oxygen Delivery Room Air 05/14/24 02:00 05/14/24 02:45 05/14/24 02:52 Temperature Pulse Rate 82 84 90 Respiratory Rate 22 H 22 H Blood Pressure Pulse Oximetry Oxygen Delivery 05/14/24 03:50 05/14/24 04:00 05/14/24 04:00 Temperature 36.6 C Pulse Rate 82 87 Respiratory Rate 22 H Blood Pressure 111/64 Pulse Oximetry 92 Oxygen Delivery Room Air 05/14/24 06:00 05/14/24 08:00 05/14/24 08:25 Temperature 35.9 C L Pulse Rate 84 96 93 Respiratory Rate 22 H 24 H Blood Pressure 82/60 L Pulse Oximetry 96 Oxygen Delivery 05/14/24 08:35 Temperature Pulse Rate 90 Respiratory Rate 24 H Blood Pressure Pulse Oximetry Oxygen Delivery Intake/Output Intake/Output: Intake & Output 05/11/24 05/12/24 05/13/24 05/14/24 23:59 23:59 23:59 23:59 Intake Total 2010.6 1010 2486 908 Output Total 7600 2451 2575 650 Balance -5588.4 -1441 -89 258 Meds/Results Medications: Active Medications Generic Name Dose Route Start Last Admin Trade Name Freq PRN Reason Stop Dose Admin Acetaminophen 650 mg 05/12/24 22:24 05/13/24 11:38 Acetaminophen 325 Mg Tablet PO 650 mg Q6H PRN Administration Mild Pain (1-3) or Fever Hydrocodone Bitart/Acetaminophen 1 tab 05/13/24 15:05 05/14/24 10:01 Hydrocodone/Acetaminophen (*Crx) 5-325 Mg Tablet PO 1 tab Q6H PRN Administration Pain Rated 4-6 Amiodarone HCl 200 mg 05/13/24 08:00 05/14/24 10:02 Amiodarone Hcl 200 Mg Tablet PO 200 mg DAILY@0800 MAEGAN Administration Apixaban 5 mg 05/11/24 09:45 05/14/24 10:02 Apixaban 5 Mg Tablet PO 5 mg Q12HR MAEGAN Administration Doxycycline Hyclate 100 mg 05/11/24 09:00 05/14/24 10:02 Doxycycline Hyclate 100 Mg Tablet PO 100 mg Q12HR MAEGAN Administration Empagliflozin 10 mg 05/11/24 09:00 05/14/24 10:03 Empagliflozin 10 Mg Tablet PO 10 mg DAILY MAEGAN Administration Furosemide 40 mg 05/11/24 09:45 05/13/24 09:31 Furosemide Inj 40 Mg/4 Ml Vial IV PUSH 40 mg BID MAEGAN Administration Ceftriaxone Sodium 1 gm in 50 mls @ 100 mls/hr 05/11/24 16:00 05/13/24 15:53 Rocephin 1 Gm/Ns 50 Ml IVPB 100 mls/hr Q24H MAEGAN Administration Levalbuterol HCl 1.25 mg 05/11/24 21:15 05/14/24 08:17 Levalbuterol Neb 1.25 Mg/3 Ml INHALATION 1.25 mg Q6HRT MAEGAN Administration Metoprolol Succinate 200 mg 05/14/24 09:00 05/14/24 10:03 Metoprolol Succinate Ext Rel 100 Mg Tabcr PO 200 mg QAM MAEGAN Administration Sacubitril/Valsartan 1 tab 05/11/24 09:00 05/14/24 10:02 Sacubitril/Valsartan 24-26 Mg Tablet PO 1 tab Q12HR MAEGAN Administration Sodium Zirconium Cyclosilicate 5 gm 05/12/24 10:00 05/14/24 10:03 Sodium Zirconium Cyclosilicate 5 Gm Powd.Pack PO 5 gm DAILY@1000 MAEGAN Administration Spironolactone 12.5 mg 05/11/24 09:00 05/12/24 10:49 Spironolactone 12.5 Mg Tablet PO Not Given QAM MAEGAN Radiology Results: ITS Impressions Chest CTA 05/10/24 14:19 IMPRESSION: 1. No pulmonary embolism. 2. Mediastinal lymphadenopathy. Clinical correlation advised. 3. Bilateral pleural effusion with adjacent atelectasis. Focal area of pneumonia in the left lower lobe laterally. Venous Doppler Study 05/10/24 14:50 IMPRESSION: Negative bilateral lower extremity venous US. No deep vein thrombosis. Bilateral Chisholm's cyst. Chest X-Ray 05/10/24 14:54 IMPRESSION: Cardiomegaly with cardiac decompensation and pulmonary edema. Pneumonitis is not excluded. Labs Labs: Laboratory Results - last 24 hr 05/14/24 04:16 WBC 7.5 RBC 3.97 L Hgb 13.0 L Hct 39.8 L MCV 100.3 H MCH 32.7 MCHC 32.7 RDW 14.1 Plt Count 215 MPV 9.5 Immature Gran % (Auto) 0.3 Neut % (Auto) 67.6 Lymph % (Auto) 16.6 L [place] % (Auto) 10.5 H Eos % (Auto) 4.3 Baso % (Auto) 0.7 Lymph # (Auto) 1.24 [place] # (Auto) 0.8 H Eos # (Auto) 0.3 Baso # (Auto) 0.1 Abs Immat Gran (auto) 0.02 Absolute Neuts (auto) 5.0 Absolute Nucleated RBC 0.000 Nucleated RBC % 0.0 Sodium 137 Potassium 4.3 Chloride 104 Carbon Dioxide 24 Anion Gap 9 BUN 32 H Creatinine 1.28 Estim Creat Clear Calc 78 Estimated GFR 57 L Glucose 109 Calcium 8.9 Magnesium 2.2 Total Bilirubin 0.8 AST 22 ALT 41 Alkaline Phosphatase 67 Total Protein 7.0 Albumin 4.0
[2024-05-14 14:43] LABS: Alveolar/Arterial O2 Gradient 28.1 mmHg; Base Excess ABG -1.4 mEq/l (+/-2.0); Fractional Inspired Oxygen 21 %; HCO3 ABG 23.8 mEq/l (22.0-26.0); Oxygen Saturation ABG 94.1 % (95.0-100.0); Oxyhemoglobin 92.1 % THb (90.0-100.0); PCO2 ABG 41.7 mmHg (35.0-45.0); PO2 ABG 71.7 mmHg (80.0-100.0); PO2 FiO2 Ratio Arterial Blood 3.41 %; Total Hemoglobin 13.9 g/dL (12.0-18.0); pH ABG 7.374 (7.350-7.450)
[2024-05-14 14:44] LABS: Device ROOM AIR; Modified Allen's Test Pass; Site Drawn LEFT RADIAL
--- NOTE | 2024-05-14 15:05 | PM.IMPN ---
Progress Note: A&P Assessment and Plan (1) Non-STEMI (non-ST elevated myocardial infarction): Code(s): I21.4 - Non-ST elevation (NSTEMI) myocardial infarction Status: Acute (2) Unspecified atrial flutter: Code(s): I48.92 - Unspecified atrial flutter Status: Acute (3) Heart failure, unspecified: Code(s): I50.9 - Heart failure, unspecified Status: Acute (4) Community acquired pneumonia: Code(s): J18.9 - Pneumonia, unspecified organism Status: Acute (5) Asthma: Code(s): J45.909 - Unspecified asthma, uncomplicated Status: Acute (6) Hypertension: Code(s): I10 - Essential (primary) hypertension Status: Acute (7) Hyperlipidemia: Code(s): E78.5 - Hyperlipidemia, unspecified Status: Acute Plan Patient had not been seen any provider for over 2 yrs, patient had on going symptoms for 2 weeks, besides atrial flutter with RVR, ECHO showed poor EF, patient was treated in the ER with amiodarone infusion and which slow the HR, patient is treated with lasix, patient is seen by cardio recommending GARFIELD-guided DCCV, chest x-ray is also concerning for pneumonia most likely community-acquired being treated with ceftriaxone and azithromycin, cardiac echo showed moderately reduced ejection fraction 20-25%, patient will need LifeVest prior to discharge, today patient stats feeling better compared to when he arrived denies any chest pain shortness of breath or palpitation, on 05/12 patient had GARFIELD guided cardioversion and it was successful and now patient is NSR, today patient seen by research software engineer, patient will need LIFEVEST upon discharge, patine has harsh breath sounds and environmental exposure to dust, recommended to consult pulmonary, may need further evaluation with PFT. will continue to monitor will follow-up and further recommendation to follow. Subjective Date/time seen: 05/14/24 15:05 Interval history: Patient had not been seen any provider for over 2 yrs, patient had on going symptoms for 2 weeks, besides atrial flutter with RVR, ECHO showed poor EF, patient was treated in the ER with amiodarone infusion and which slow the HR, patient is treated with lasix, patient is seen by cardio recommending GARFIELD-guided DCCV, chest x-ray is also concerning for pneumonia most likely community-acquired being treated with ceftriaxone and azithromycin, cardiac echo showed moderately reduced ejection fraction 20-25%, patient will need LifeVest prior to discharge, today patient stats feeling better compared to when he arrived denies any chest pain shortness of breath or palpitation, on 05/12 patient had GARFIELD guided cardioversion and it was successful and now patient is NSR, today patient seen by research software engineer, patient will need LIFEVEST upon discharge, patine has harsh breath sounds and environmental exposure to dust, recommended to consult pulmonary, may need further evaluation with PFT. will continue to monitor will follow-up and further recommendation to follow. Review of Systems Review of Systems: All systems reviewed & are unremarkable except as noted in HPI and below Exam Narrative: Morbidly obese Patient is comfortable, NAD HEENT: eyes are clear and none icteric LUNGS: Bilateral fair entry with rales and rhonchi HEART: Irregularly irregular ABD: BS+, Soft and nontender Lower extremities: edema SKIN: nonjaundiced Neuro: grossly intact. Objective Data Vital Signs Vital Signs: Vital Signs - 24 hr 05/13/24 16:00 05/13/24 16:00 05/13/24 18:00 Temperature 36.5 C Pulse Rate 83 85 74 Respiratory Rate 22 H Blood Pressure 96/53 L Pulse Oximetry 92 Oxygen Delivery 05/13/24 20:00 05/13/24 20:34 05/13/24 20:50 Temperature 36.5 C Pulse Rate 83 85 87 Respiratory Rate 22 H 22 H Blood Pressure 119/95 H Pulse Oximetry 90 Oxygen Delivery 05/13/24 20:55 05/13/24 21:15 05/13/24 21:23 Temperature Pulse Rate 84 86 Respiratory Rate 22 H Blood Pressure Pulse Oximetry Oxygen Delivery Room Air 05/13/24 22:00 05/14/24 00:00 05/14/24 00:30 Temperature Pulse Rate 85 81 Respiratory Rate Blood Pressure Pulse Oximetry Oxygen Delivery Room Air 05/14/24 00:36 05/14/24 02:00 05/14/24 02:45 Temperature 36.5 C Pulse Rate 74 82 84 Respiratory Rate 22 H 22 H Blood Pressure 122/93 H Pulse Oximetry 91 Oxygen Delivery 05/14/24 02:52 05/14/24 03:50 05/14/24 04:00 Temperature 36.6 C Pulse Rate 90 82 Respiratory Rate 22 H 22 H Blood Pressure 111/64 Pulse Oximetry 92 Oxygen Delivery Room Air 05/14/24 04:00 05/14/24 06:00 05/14/24 08:00 Temperature 35.9 C L Pulse Rate 87 84 96 Respiratory Rate 22 H Blood Pressure 82/60 L Pulse Oximetry 96 Oxygen Delivery 05/14/24 08:00 05/14/24 08:25 05/14/24 08:35 Temperature Pulse Rate 98 93 90 Respiratory Rate 24 H 24 H Blood Pressure Pulse Oximetry Oxygen Delivery 05/14/24 10:00 05/14/24 12:00 05/14/24 12:00 Temperature 37.7 C H Pulse Rate 83 85 98 Respiratory Rate 18 Blood Pressure 90/63 L Pulse Oximetry 93 Oxygen Delivery 05/14/24 14:24 05/14/24 14:24 05/14/24 14:35 Temperature Pulse Rate 80 80 81 Respiratory Rate 20 20 20 Blood Pressure Pulse Oximetry 95 Oxygen Delivery Room Air Intake/Output Intake/Output: Intake & Output 05/11/24 05/12/24 05/13/24 05/14/24 23:59 23:59 23:59 23:59 Intake Total 2010.6 1010 2486 1145 Output Total 7600 2456 2575 1250 [place] -5588.4 -1441 -89 -105 Meds/Results Medications: Active Medications Generic Name Dose Route Start Last Admin Trade Name Freq PRN Reason Stop Dose Admin Acetaminophen 650 mg 05/12/24 22:24 05/13/24 11:38 Acetaminophen 325 Mg Tablet PO 650 mg Q6H PRN Administration Mild Pain (1-3) or Fever Hydrocodone Bitart/Acetaminophen 1 tab 05/13/24 15:05 05/14/24 10:01 Hydrocodone/Acetaminophen (*Crx) 5-325 Mg Tablet PO 1 tab Q6H PRN Administration Pain Rated 4-6 Amiodarone HCl 200 mg 05/13/24 08:00 05/14/24 10:02 Amiodarone Hcl 200 Mg Tablet PO 200 mg DAILY@0800 MAEGAN Administration Apixaban 5 mg 05/11/24 09:45 05/14/24 10:02 Apixaban 5 Mg Tablet PO 5 mg Q12HR MAEGAN Administration Doxycycline Hyclate 100 mg 05/11/24 09:00 05/14/24 10:02 Doxycycline Hyclate 100 Mg Tablet PO 100 mg Q12HR MAEGAN Administration Empagliflozin 10 mg 05/11/24 09:00 05/14/24 10:03 Empagliflozin 10 Mg Tablet PO 10 mg DAILY [facility] Administration Furosemide 40 mg 05/11/24 09:45 05/13/24 09:31 Furosemide Inj 40 Mg/4 Ml Vial IV PUSH 40 mg BID MAEGAN Administration Furosemide 40 mg 05/15/24 09:00 Furosemide 40 Mg Tablet PO DAILY [facility] Ceftriaxone Sodium 1 gm in 50 mls @ 100 mls/hr 05/11/24 16:00 05/13/24 15:53 Rocephin 1 Gm/Ns 50 Ml IVPB 100 mls/hr Q24H MAEGAN Administration Levalbuterol HCl 1.25 mg 05/11/24 21:15 05/14/24 14:23 Levalbuterol Neb 1.25 Mg/3 Ml INHALATION 1.25 mg Q6HRT MAEGAN Administration Metoprolol Succinate 50 mg 05/15/24 09:00 Metoprolol Succinate Ext Rel 50 Mg Tabcr PO QAM [facility] Sacubitril/Valsartan 1 tab 05/11/24 09:00 05/14/24 10:02 Sacubitril/Valsartan 24-26 Mg Tablet PO 1 tab Q12HR [facility] Administration Sodium Zirconium Cyclosilicate 5 gm 05/12/24 10:00 05/14/24 10:03 Sodium Zirconium Cyclosilicate 5 Gm Powd.Pack PO 5 gm DAILY@1000 [facility] Administration Spironolactone 12.5 mg 05/11/24 09:00 05/12/24 10:49 Spironolactone 12.5 Mg Tablet PO Not Given QAM [facility] Radiology Results: ITS Impressions Chest CTA 05/10/24 14:19 IMPRESSION: 1. No pulmonary embolism. 2. Mediastinal lymphadenopathy. Clinical correlation advised. 3. Bilateral pleural effusion with adjacent atelectasis. Focal area of pneumonia in the left lower lobe laterally. Venous Doppler Study 05/10/24 14:50 IMPRESSION: Negative bilateral lower extremity venous US. No deep vein thrombosis. Bilateral Chisholm's cyst. Chest X-Ray 05/10/24 14:54 IMPRESSION: Cardiomegaly with cardiac decompensation and pulmonary edema. Pneumonitis is not excluded. Labs Labs: Laboratory Results - last 24 hr 05/14/24 05/14/24 04:16 14:19 WBC 7.5 RBC 3.97 L Hgb 13.0 L Hct 39.8 L MCV 100.3 H MCH 32.7 MCHC 32.7 RDW 14.1 Plt Count 215 MPV 9.5 Immature Gran % (Auto) 0.3 Neut % (Auto) 67.6 Lymph % (Auto) 16.6 L [place] % (Auto) 10.5 H Eos % (Auto) 4.3 Baso % (Auto) 0.7 Lymph # (Auto) 1.24 [place] # (Auto) 0.8 H Eos # (Auto) 0.3 Baso # (Auto) 0.1 Abs Immat Gran (auto) 0.02 Absolute Neuts (auto) 5.0 Absolute Nucleated RBC 0.000 Nucleated RBC % 0.0 Puncture Site Left radial ABG pH 7.374 ABG pCO2 41.7 ABG pO2 71.7 L ABG PO2/FiO2 Ratio 3.41 ABG HCO3 23.8 ABG O2 Saturation 94.1 L ABG O2 Content 18.0 ABG Base Excess -1.4 A-a Gradient 28.1 Oxyhemoglobin 92.1 Total Hemoglobin 13.9 O2 Delivery Device Room air O2 Liters/Min Not Reportable FiO2 21 Sodium 137 Potassium 4.3 Chloride 104 Carbon Dioxide 24 Anion Gap 9 BUN 32 H Creatinine 1.28 Estim Creat Clear Calc 78 Estimated GFR 57 L Glucose 109 Calcium 8.9 Magnesium 2.2 Total Bilirubin 0.8 AST 22 ALT 41 Alkaline Phosphatase 67 Total Protein 7.0 Albumin 4.0 Quality VTE Prophylaxis VTE prophylaxis: pharmacologic ordered
[2024-05-15] VITALS (26 sets, daily range): BP systolic 96–118; BP diastolic 45–91; PULSE 74–100; RESP 18–20; TEMP 36.6–36.9; O2SAT 91–100
[2024-05-15] MEDS: LEVALBUTEROL NEB 1.25 MG/3 ML INHALATION ×4 (02:37→20:44)
[2024-05-15 04:30] LABS: Basophils Absolute Auto 0.1 K/mm3 (0.0-0.1); Basophils Percent Auto 0.8 % (0.2-1.2); Eosinophils Absolute Auto 0.2 K/mm3 (0-0.3); Eosinophils Percent Auto 3.7 % (0-4.4); Hematocrit 40.3 % (42.0-52.0); Hemoglobin 13.2 g/dL (14.0-18.0); Immature Granulocyte Absolute 0.01 K/mm3 (0.00-0.031); Immature Granulocyte Percent A 0.2 % (0-0.5); Lymphocytes Absolute Auto 1.44 K/mm3 (0.9-3.2); Lymphocytes Percent Auto 24.2 % (18.3-44.2); Mean Corpuscular HGB Conc 32.8 g/dl (32-36); Mean Corpuscular Hemoglobin 32.8 pg (26-34); Mean Corpuscular Volume 100.2 fl (80-100); Mean Platelet Volume 9.4 fl (7.4-10.4); Monocytes Absolute Auto 0.7 K/mm3 (0.1-0.6); Monocytes Percent Auto 11.7 % (2.6-8.5); Neutrophils Absolute Auto 3.5 K/mm3 (1.3-6.7); Neutrophils Percent Auto 59.4 % (45.5-73.1); Platelet Count Result 200 k/mm3 (150-375); Red Blood Count 4.02 M/mm3 (4.6-6.20); Red Cell Distribution Width 13.7 % (11.5-14.5)
[2024-05-15 04:43] LABS: Alanine Aminotransferase 35 U/L (6-50); Albumin Level 3.9 g/dL (3.5-5.1); Alkaline Phosphatase 66 U/L (38-126); Anion Gap 11 mmol/L (4-12); Aspartate Amino Transferase 21 U/L (17-59); Bilirubin,Total 0.7 mg/dL (0.2-1.3); Blood Urea Nitrogen 25 mg/dL (9-20); Calcium 8.9 mg/dL (8.4-10.2); Carbon Dioxide 21 mmol/L (22-30); Chloride 104 mmol/L (98-107); Estimated CRCL calculation 83 ml/min; Estimated Glomerular Filt Rate > 60; Glucose 105 mg/dL (65-110); Magnesium 2.2 mg/dL (1.6-2.3); Potassium 4.5 mmol/L (3.4-5.0); Sodium 136 mmol/L (137-145)
[2024-05-15 09:20] LABS: NT Pro B Type Natriuretic Pept 459 pg/mL (19.9-100)
[2024-05-15] MEDS: FUROSEMIDE 40 MG TABLET PO (09:55)
[2024-05-15] MEDS: SACUBITRIL/VALSARTAN 24-26 MG TABLET 1 TAB PO ×2 (09:55→21:31)
[2024-05-15] MEDS: APIXABAN 5 MG TABLET PO ×2 (09:55→21:31)
[2024-05-15] MEDS: HYDROcodone/acetaminophen (*CRX) 5-325 MG TABLET 1 TAB PO ×3 (09:55→21:31)
[2024-05-15] MEDS: DOXYCYCLINE HYCLATE 100 MG TABLET PO ×2 (09:56→21:31)
[2024-05-15] MEDS: METOPROLOL SUCCINATE EXT REL 50 MG TABCR PO (09:56)
[2024-05-15] MEDS: AMIODARONE HCL 200 MG TABLET PO (09:56)
[2024-05-15] MEDS: SODIUM ZIRCONIUM CYCLOSILICATE 5 GM POWD.PACK PO (09:56)
[2024-05-15] MEDS: EMPAGLIFLOZIN 10 MG TABLET PO (09:56)
--- NOTE | 2024-05-15 11:21 | PM.CNPUL ---
Assessment and Plan Assessment and plan (1) Asthma: Code(s): J45.909 - Unspecified asthma, uncomplicated Status: Acute Assessment and Plan: Patient with a childhood history of allergic rhinitis at age 9, skin test positive at age 16 and diagnosed clinically with asthma 12 years ago and given p.r.n. albuterol. Patient is a never smoker but was exposed to secondhand smoke from both of his parents and to his up until 1 year ago. Patient smokes marijuana 1-2 cigarettes a day since age 21 last use was 1 month ago. Patient injected heroin from age [age]. Patient smoked and shot methamphetamine from age [age]. He may also have a COPD component. Currently is sinuses are controlled on no medicines. He likely has untreated obstructive sleep apnea. his fluid overload is improved with an improved chest x-ray and BNP. 05/15/2024. Patient tells me he is 75% back to normal, he had wheezing this morning but none now. His phlegm is at his baseline at 3 to 4 times a day with no hemoptysis. His white blood cell count is 6.0, his creatinine is 1.2. He is on room air with saturations 91%. Patient had a room air blood gas 7.37/42/72. Patient had an overnight oximetry on room air last night with recording duration of 3 hours and 14 minutes. Average saturation 90%. Low saturation 84%. Time with saturation less than or equal to 88% was 43 minutes. His oxygen desaturation is 16.9. BNP is 459 improved from 2190 on 05/11/2023. Chest x-ray today shows mildly improved congestion. His weight today is 134.6 kg with an admission weight of 138 kg. He has diuresed 8.1 L since admission. Plan: I will treat him for asthma. He has been treated for community-acquired pneumonia and overall he is improved. From a pulmonary perspective patient is ready to be discharged on these pulmonary medications: Beta agonsit and High-dose inhaled corticosteroid that insurance will cover (Advair discus 500/50 at 1 puff BID, Advair HFA 230/21 at 2 puffs BID, Breo Ellipts 200/25 at 1 puff Q day, or Dulera 200/5 at 2 puffs BID, or symbicort 160/4.5 at 2 puffs BID) Rescue albuterol 2 puffs q.4 hours p.r.n. shortness of breath or wheezing. Doxycycline 100 mg p.o. q.day x2 days Patient requires no supplemental oxygen at rest or with activity per from O2 assessment. Oxygen 2 L nasal cannula at night. Loratadine 10 mg p.o. q.day p.r.n. sinus congestion or rhinorrhea. Marijuana smoking cessation was provided. Diuretics and congestive heart failure management per Cardiology and hospitalist. Currently the patient is on Lasix 40 a day. Follow-up in the Pulmonary Clinic in 4-6 weeks. I gave him our business card and informed our outsole scheduler. He should have an outpatient sleep study. If the patient remains in the hospital tonight each to have an overnight oximetry on 2 L nasal cannula. Discussed with Dr. Bill, will sign off, call with questions (2) Daytime hypersomnia: Code(s): G47.10 - Hypersomnia, unspecified Status: Acute Assessment and Plan: Patient tells me he snores, has daytime hypersomnia, wakes himself up with grunts, witnessed apneas from his and morning headaches 1 to 2 times a week with a BMI of 38.1. He has asthma and requires nocturnal oxygen. Plan: Patient will need a in lab split night sleep study as an outpatient. History of Present Illness History of Present Illness Consult date: 05/15/24 Chief complaint: A Flutter Rapid Ventricular Response/New Onset Hea Narrative: 05/15/2024: This is a new pulmonary consult for occupational exposure 63-year-old with a history of childhood allergic rhinitis, hypertension, hyperlipidemia, kidney stones, history of pneumonia and PE 2021 on anticoagulation for 6 months and self discontinued, previous illicit substance abuse, Daytime hypersomnia and asthma. patient tells me since age 9 he has had allergic rhinitis symptoms that are worse in the spring and fall with rhinorrhea, sinus congestion, itchy eyes. At age 16 he was skin tested and was positive to mold and pollen. Patient intermittently takes Sudafed and Claritin which relieved his symptoms. Patient was admitted to [facility] in 2021 and had pneumonia in 1 lung and blood clot and the other lung. He was discharged on anticoagulation and took this for 6 months and then self discontinued this. He was HIV negative at that time. 2022 patient had a sleep study at [facility]. He was unable to tolerate this sleep study and had a panic attack after they try to hook him up to CPAP. He says the study lasted 45 minutes and then he had to leave. Patient injected heroin on a daily basis from age [age]. Patient smoked methamphetamine and injected methamphetamine from age [age]. Patient smokes 1-2 marijuana cigarettes since age 21 last use was 1 month ago. Patient was a never smoker but exposed to secondhand smoke from both of his parents. Patient was exposed to secondhand smoke from his until 1 month ago. 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 He did this throughout his entire life. 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 Patient has never worked in the [employer]. 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 Approximately 12 years ago the patient noticed intermittent wheezing and was prescribed p.r.n. albuterol by his doctors and was told he had asthma. No PFTs were done. Over the last 12 years his symptoms remain stable taking p.r.n. albuterol worse during the spring and fall change in seasons where he would take a 2 or 3 times a week and other times he would take none for many months. Over the last 6 months he has noticed his symptoms were worse. Patient states he could walk 4-5 blocks as long as he went slowly and was limited by bilateral knee pain rather than respiratory issues. He has no respiratory limitations in his activities of daily living. Patient's asthma on wheezing symptoms are triggered by change in weather, mold exposure, humidity, upper respiratory tract infections, exposure to pollen in the spring and fall. 3 weeks ago the patient had a URI and felt he was getting better. Patient tells me his home COVID test was negative. Over the last week though he felt as if he was relapsing with worsening cough, congestion, and dyspnea on exertion. He could only walk room to room. Patient was admitted to the hospital on 05/10/2024 with shortness of breath and dyspnea on exertion worse over the last few weeks with pedal edema for 2 or 3 weeks. He was found to have AFlutter with RVR and cardiomyopathy with an EF of 20-25%. He underwent karissa guided cardioversion on 05/12/2024. He has had intermittent wheezing in the hospital relieved by nebulized levalbuterol. 05/15/2024. Patient tells me he is 75% back to normal, he had wheezing this morning but none now. His phlegm is at his baseline at 3 to 4 times a day with no hemoptysis. His white blood cell count is 6.0, his creatinine is 1.2. He is on room air with saturations 91%. Patient had a room air blood gas 7.37/42/72. Patient had an overnight oximetry on room air last night with recording duration of 3 hours and 14 minutes. Average saturation 90%. Low saturation 84%. Time with saturation less than or equal to 88% was 43 minutes. His oxygen desaturation is 16.9. BNP is 459 improved from 2190 on 05/11/2023. Chest x-ray today shows mildly improved congestion. His weight today is 134.6 kg with an admission weight of 138 kg. He has diuresed 8.1 L since admission. Review of Systems Constitutional: Constitutional: Reports no additional constitutional complaints Eyes: Eyes: Reports no additional eye complaints ENT: Reports system reviewed and no additional complaints, except as documented Cardiovascular: Cardiovascular: Reports no additional cardiovascular complaints Respiratory: Respiratory: Reports no additional respiratory complaints Gastrointestinal: Gastrointestinal: Reports no additional gastrointestinal complaints Musculoskeletal: Musculoskeletal: Reports no additional musculoskeletal complaints Neurologic: Reports system reviewed and no additional complaints, except as documented Psychiatric: Psychiatric: Reports no additional psychiatric complaints Endocrine: Endocrine: Reports no additional endocrine complaints Hematologic/Lymphatic: Hematologic/Lymphatic: Reports no additional hematologic/lymphatic complaints Allergic/Immunologic: Allergic/Immunologic: Reports no additional allergic/immunologic complaints [facility] Past Medical History Medical History (Updated 05/15/24 @ 11:35 by Jeffy Ge MD) Atrial flutter with rapid ventricular response Acute decompensated heart failure Asthma Arthritis Kidney stones Hyperlipidemia Hypertension Surgical History Surgical History H/O knee surgery Family History Family History Father History of heart artery stent Social History Social History Smoking status: Current every day smoker Smokeless tobacco user: other Additional smoking assessment comments: Marijuana Alcohol intake: former Substance use: former Do You Feel Safe in your Home?: Yes Lack of Transportation: No Lack of Food: Never True Current Housing: I Have Housing Concerned About Future Housing: No Difficulty Paying Gas/Electric Bills: No Difficulty Paying for Meds: No Currently Unemployed: No Education: Trade/Vocational Certificate Difficulty w/ Childcare or Family Care: No Spiritual care concerns: No Meds Home Medications and Allergies Home Medications ?Medication ?Instructions ?Recorded ?Confirmed ?Type No Home Medications 05/10/24 05/10/24 History Allergies Allergy/AdvReac Type Severity Reaction Status Date / Time No Known Allergies Allergy Verified 05/10/24 13:50 Vital Signs Vital Signs - 24 hr 05/14/24 12:00 05/14/24 12:00 05/14/24 14:00 Temperature 37.7 C H Pulse Rate 85 98 78 Respiratory Rate 18 Blood Pressure 90/63 L Pulse Oximetry 93 Oxygen Delivery Fraction of Inspired Oxygen 05/14/24 14:24 05/14/24 14:24 05/14/24 14:35 Temperature Pulse Rate 80 80 81 Respiratory Rate 20 20 20 Blood Pressure Pulse Oximetry 95 Oxygen Delivery Room Air Fraction of Inspired Oxygen 05/14/24 16:00 05/14/24 16:00 05/14/24 16:00 Temperature 37.0 C Pulse Rate 76 76 79 Respiratory Rate 20 20 Blood Pressure 104/64 Pulse Oximetry 94 94 Oxygen Delivery Room Air Fraction of Inspired Oxygen 05/14/24 18:00 05/14/24 20:00 05/14/24 20:00 Temperature Pulse Rate 85 85 Respiratory Rate Blood Pressure Pulse Oximetry Oxygen Delivery Room Air Fraction of Inspired Oxygen 05/14/24 20:33 05/14/24 20:42 05/14/24 20:44 Temperature Pulse Rate 85 85 85 Respiratory Rate 20 20 20 Blood Pressure Pulse Oximetry 93 Oxygen Delivery Room Air Fraction of Inspired Oxygen 05/14/24 21:31 05/14/24 22:00 05/14/24 22:43 Temperature 37.0 C Pulse Rate 85 84 85 Respiratory Rate 20 20 Blood Pressure 111/67 Pulse Oximetry 93 93 Oxygen Delivery Room Air Fraction of Inspired Oxygen 05/15/24 00:00 05/15/24 00:00 05/15/24 00:00 Temperature 36.6 C Pulse Rate 84 91 Respiratory Rate 18 Blood Pressure 98/85 L Pulse Oximetry 100 Oxygen Delivery Room Air Fraction of Inspired Oxygen 05/15/24 02:33 05/15/24 02:40 05/15/24 02:48 Temperature Pulse Rate 79 85 85 Respiratory Rate 20 20 Blood Pressure Pulse Oximetry Oxygen Delivery Fraction of Inspired Oxygen 05/15/24 04:00 05/15/24 04:00 05/15/24 04:00 Temperature 36.7 C Pulse Rate 82 83 Respiratory Rate 18 Blood Pressure 96/45 L Pulse Oximetry 100 Oxygen Delivery Room Air Fraction of Inspired Oxygen 05/15/24 06:00 05/15/24 08:00 05/15/24 08:02 Temperature 36.8 C Pulse Rate 77 82 Respiratory Rate 20 Blood Pressure 104/50 L Pulse Oximetry 94 91 Oxygen Delivery Room Air Fraction of Inspired Oxygen 21 05/15/24 08:02 05/15/24 08:12 Temperature Pulse Rate 86 88 Respiratory Rate 20 20 Blood Pressure Pulse Oximetry Oxygen Delivery Fraction of Inspired Oxygen Exam Const: General: cooperative, healthy appearing and comfortable Orientation/consciousness: oriented to person, oriented to place and oriented to time HENMT: Head: normal to inspection Ears: hearing grossly normal bilaterally Eyes: General: appearance normal, both eyes and all related structures Neck: Neck: normal visual inspection Chest: Chest palpation & inspection: normal inspection of the chest Resp: Effort & Inspection: normal respiratory effort and able to speak in complete sentences Auscultation: crackles, no rales, no rhonchi, no wheezes and lung sounds not diminished Cardio: Jugular venous distension: no JVD GI: Inspection: normal to inspection GI Palp: No abdominal tenderness Skin: General skin exam: normal color Neuro: General: oriented to person, oriented to place and oriented to time Extrem: General: normal to inspection and no edema Psych: Appearance: grossly normal Results Laboratory Findings 05/15/24 04:16 05/15/24 04:16 ABG, PT/INR, D-dimer: ABG ABG pH 7.374 (7.350-7.450) 05/14/24 14:19 ABG pCO2 41.7 mmHg (35.0-45.0) 05/14/24 14:19 ABG pO2 71.7 mmHg (80.0-100.0) L 05/14/24 14:19 ABG O2 Saturation 94.1 % (95.0-100.0) L 05/14/24 14:19 PT/INR, D-dimer PT 13.4 Seconds (11.1-14.7) 05/10/24 13:40 INR 1.0 05/10/24 13:40 Abnormal lab findings: Abnormal Labs 05/10/24 05/10/24 05/10/24 13:40 15:45 22:13 RBC 3.74 L Hgb 12.2 L Hct 37.5 L MCV 100.3 H Lymph % (Auto) Villalba % (Auto) Villalba # (Auto) APTT 45.8 H ABG pO2 ABG O2 Saturation Sodium Potassium Carbon Dioxide BUN Creatinine Estimated GFR Glucose 119 H Phosphorus ALT 70 H Troponin I 0.062 H* 0.064 H* 0.068 H* NT-Pro-B Natriuret Pep 2190 H 05/11/24 05/11/24 05/12/24 04:18 11:06 00:09 RBC 4.12 L Hgb 13.6 L Hct 41.3 L MCV 100.2 H Lymph % (Auto) Villalba % (Auto) Villalba # (Auto) APTT 78.1 H 53.7 H ABG pO2 ABG O2 Saturation Sodium Potassium Carbon Dioxide 34 H BUN 24 H Creatinine 1.39 H Estimated GFR 52 L Glucose 122 H 111 H Phosphorus 4.6 H ALT 72 H Troponin I NT-Pro-B Natriuret Pep 05/12/24 05/12/24 05/13/24 04:16 10:06 04:36 RBC 4.40 L 4.07 L Hgb 13.3 L Hct 40.9 L MCV 100.5 H Lymph % (Auto) Villalba % (Auto) 9.2 H 10.7 H Villalba # (Auto) 0.7 H 0.9 H APTT ABG pO2 ABG O2 Saturation Sodium Potassium 5.4 H 5.3 H Carbon Dioxide 32 H 32 H BUN 23 H 24 H Creatinine 1.34 H Estimated GFR 54 L Glucose 117 H 123 H Phosphorus ALT 68 H Troponin I NT-Pro-B Natriuret Pep 05/13/24 05/14/24 05/14/24 04:37 04:16 14:19 RBC 3.97 L Hgb 13.0 L Hct 39.8 L MCV 100.3 H Lymph % (Auto) 16.6 L Villalba % (Auto) 10.5 H Villalba # (Auto) 0.8 H APTT ABG pO2 71.7 L ABG O2 Saturation 94.1 L Sodium Potassium Carbon Dioxide 31 H BUN 37 H D 32 H Creatinine 1.72 H Estimated GFR 40 L 57 L Glucose Phosphorus ALT 54 H Troponin I NT-Pro-B Natriuret Pep 05/15/24 04:16 RBC 4.02 L Hgb 13.2 L Hct 40.3 L MCV 100.2 H Lymph % (Auto) Villalba % (Auto) 11.7 H Villalba # (Auto) 0.7 H APTT ABG pO2 ABG O2 Saturation Sodium 136 L Potassium Carbon Dioxide 21 L BUN 25 H Creatinine Estimated GFR Glucose Phosphorus ALT Troponin I NT-Pro-B Natriuret Pep 459 H Diagnostic Findings Additional studies: ITS Impressions Chest CTA 05/10/24 14:19 IMPRESSION: 1. No pulmonary embolism. 2. Mediastinal lymphadenopathy. Clinical correlation advised. 3. Bilateral pleural effusion with adjacent atelectasis. Focal area of pneumonia in the left lower lobe laterally. Venous Doppler Study 05/10/24 14:50 IMPRESSION: Negative bilateral lower extremity venous US. No deep vein thrombosis. Bilateral Chisholm's cyst. Chest X-Ray 05/10/24 14:54 IMPRESSION: Cardiomegaly with cardiac decompensation and pulmonary edema. Pneumonitis is not excluded. Chest X-Ray 05/15/24 08:35 IMPRESSION: Bilateral interstitial changes which may indicate pneumonitis versus pulmonary edema. Clinical correlation advised.
--- NOTE | 2024-05-15 12:57 | PCRCNOTE ---
Home O2 eval completed by RT from [id number]. Patient did not require supplemental oxygen while walking. RN and Dr. Ge notified of results.
--- NOTE | 2024-05-15 16:21 | PM.IMPN ---
Progress Note: A&P Assessment and Plan (1) Non-STEMI (non-ST elevated myocardial infarction): Code(s): I21.4 - Non-ST elevation (NSTEMI) myocardial infarction Status: Acute (2) Unspecified atrial flutter: Code(s): I48.92 - Unspecified atrial flutter Status: Acute (3) Heart failure, unspecified: Code(s): I50.9 - Heart failure, unspecified Status: Acute (4) Community acquired pneumonia: Code(s): J18.9 - Pneumonia, unspecified organism Status: Acute (5) Asthma: Code(s): J45.909 - Unspecified asthma, uncomplicated Status: Acute (6) Hypertension: Code(s): I10 - Essential (primary) hypertension Status: Acute (7) Hyperlipidemia: Code(s): E78.5 - Hyperlipidemia, unspecified Status: Acute Plan Patient had not been seen any provider for over 2 yrs, patient had on going symptoms for 2 weeks, besides atrial flutter with RVR, ECHO showed poor EF, patient was treated in the ER with amiodarone infusion and which slow the HR, patient is treated with lasix, patient is seen by cardio recommending GARFIELD-guided DCCV, chest x-ray is also concerning for pneumonia most likely community-acquired being treated with ceftriaxone and azithromycin, cardiac echo showed moderately reduced ejection fraction 20-25%, patient will need LifeVest prior to discharge, today patient stats feeling better compared to when he arrived denies any chest pain shortness of breath or palpitation, on 05/12 patient had GARFIELD guided cardioversion and it was successful and now patient is NSR, on 05/14 patient seen by dynamite packing machine feeder, patient will need LIFEVEST upon discharge, patine has harsh breath sounds and environmental exposure to dust, recommended to consult pulmonary, Patient was seen by Dr. Ge, suspect patient combination of asthma and COPD due to working in a [employer]ja environment, ordered albuterol INH and high dose inhale corticosteroid, may need further evaluation with PFT. will continue to monitor will follow-up and further recommendation to follow. Subjective Date/time seen: 05/15/24 16:21 Interval history: Patient had not been seen any provider for over 2 yrs, patient had on going symptoms for 2 weeks, besides atrial flutter with RVR, ECHO showed poor EF, patient was treated in the ER with amiodarone infusion and which slow the HR, patient is treated with lasix, patient is seen by cardio recommending GARFIELD-guided DCCV, chest x-ray is also concerning for pneumonia most likely community-acquired being treated with ceftriaxone and azithromycin, cardiac echo showed moderately reduced ejection fraction 20-25%, patient will need LifeVest prior to discharge, today patient stats feeling better compared to when he arrived denies any chest pain shortness of breath or palpitation, on 05/12 patient had GARFIELD guided cardioversion and it was successful and now patient is NSR, on 05/14 patient seen by dynamite packing machine feeder, patient will need LIFEVEST upon discharge, patine has harsh breath sounds and environmental exposure to dust, recommended to consult pulmonary, Patient was seen by Dr. Ge, suspect patient combination of asthma and COPD due to working in a [employer] environment, ordered albuterol INH and high dose inhale corticosteroid, may need further evaluation with PFT. will continue to monitor will follow-up and further recommendation to follow. Review of Systems Review of Systems: All systems reviewed & are unremarkable except as noted in HPI and below Exam Narrative: Morbidly obese Patient is comfortable, NAD HEENT: eyes are clear and none icteric LUNGS: Bilateral fair entry with rales and rhonchi HEART: Irregularly irregular ABD: BS+, Soft and nontender Lower extremities: edema SKIN: nonjaundiced Neuro: grossly intact. Objective Data Vital Signs Vital Signs: Vital Signs - 24 hr 05/14/24 18:00 05/14/24 20:00 05/14/24 20:00 Temperature Pulse Rate 85 85 Respiratory Rate Blood Pressure Pulse Oximetry Oxygen Delivery Room Air Fraction of Inspired Oxygen 05/14/24 20:33 05/14/24 20:42 05/14/24 20:44 Temperature Pulse Rate 85 85 85 Respiratory Rate 20 20 20 Blood Pressure Pulse Oximetry 93 Oxygen Delivery Room Air Fraction of Inspired Oxygen 05/14/24 21:31 05/14/24 22:00 05/14/24 22:43 Temperature 37.0 C Pulse Rate 85 84 85 Respiratory Rate 20 20 Blood Pressure 111/67 Pulse Oximetry 93 93 Oxygen Delivery Room Air Fraction of Inspired Oxygen 21 05/15/24 00:00 05/15/24 00:00 05/15/24 00:00 Temperature 36.6 C Pulse Rate 84 91 Respiratory Rate 18 Blood Pressure 98/85 L Pulse Oximetry 100 Oxygen Delivery Room Air Fraction of Inspired Oxygen 05/15/24 02:33 05/15/24 02:40 05/15/24 02:48 Temperature Pulse Rate 79 85 85 Respiratory Rate 20 20 Blood Pressure Pulse Oximetry Oxygen Delivery Fraction of Inspired Oxygen 05/15/24 04:00 05/15/24 04:00 05/15/24 04:00 Temperature 36.7 C Pulse Rate 82 83 Respiratory Rate 18 Blood Pressure 96/45 L Pulse Oximetry 100 Oxygen Delivery Room Air Fraction of Inspired Oxygen 05/15/24 06:00 05/15/24 08:00 05/15/24 08:00 Temperature 36.8 C Pulse Rate 77 82 81 Respiratory Rate 20 Blood Pressure 104/50 L Pulse Oximetry 94 Oxygen Delivery Fraction of Inspired Oxygen 05/15/24 08:00 05/15/24 08:02 05/15/24 08:02 Temperature Pulse Rate 86 Respiratory Rate 20 Blood Pressure Pulse Oximetry 91 Oxygen Delivery Room Air Room Air Fraction of Inspired Oxygen 21 05/15/24 08:12 05/15/24 10:00 05/15/24 11:59 Temperature Pulse Rate 88 85 84 Respiratory Rate 20 Blood Pressure Pulse Oximetry 96 Oxygen Delivery Room Air Fraction of Inspired Oxygen 21 05/15/24 12:00 05/15/24 12:00 05/15/24 12:00 Temperature 36.9 C Pulse Rate 78 90 Respiratory Rate 20 Blood Pressure 102/61 Pulse Oximetry 96 Oxygen Delivery Room Air Fraction of Inspired Oxygen 05/15/24 12:05 05/15/24 12:07 05/15/24 14:00 Temperature Pulse Rate 100 76 Respiratory Rate Blood Pressure Pulse Oximetry 94 95 Oxygen Delivery Room Air Room Air Fraction of Inspired Oxygen 21 21 05/15/24 14:11 05/15/24 14:11 05/15/24 14:17 Temperature Pulse Rate 84 81 Respiratory Rate 20 20 Blood Pressure Pulse Oximetry 93 Oxygen Delivery Room Air Fraction of Inspired Oxygen 21 05/15/24 15:48 Temperature 36.9 C Pulse Rate 80 Respiratory Rate 18 Blood Pressure 106/91 H Pulse Oximetry 95 Oxygen Delivery Fraction of Inspired Oxygen Intake/Output Intake/Output: Intake & Output 05/12/24 05/13/24 05/14/24 05/15/24 23:59 23:59 23:59 23:59 Intake Total 1010 4226 1982 950 Output Total 7892 9714 8675 800 Balance -1441 -39 -68 150 Meds/Results Medications: Active Medications Generic Name Dose Route Start Last Admin Trade Name Freq PRN Reason Stop Dose Admin Acetaminophen 650 mg 05/12/24 22:24 05/13/24 11:38 Acetaminophen 325 Mg Tablet PO 650 mg Q6H PRN Administration Mild Pain (1-3) or Fever Hydrocodone Bitart/Acetaminophen 1 tab 05/13/24 15:05 05/15/24 16:01 Hydrocodone/Acetaminophen (*Crx) 5-325 Mg Tablet PO 1 tab Q6H PRN Administration Pain Rated 4-6 Amiodarone HCl 200 mg 05/13/24 08:00 05/15/24 09:56 Amiodarone Hcl 200 Mg Tablet PO 200 mg DAILY@0800 MAEGAN Administration Apixaban 5 mg 05/11/24 09:45 05/15/24 09:55 Apixaban 5 Mg Tablet PO 5 mg Q12HR MAEGAN Administration Doxycycline Hyclate 100 mg 05/11/24 09:00 05/15/24 09:56 Doxycycline Hyclate 100 Mg Tablet PO 100 mg Q12HR MAEGAN Administration Empagliflozin 10 mg 05/11/24 09:00 05/15/24 09:56 Empagliflozin 10 Mg Tablet PO 10 mg DAILY MAEGAN Administration Furosemide 40 mg 05/11/24 09:45 05/13/24 09:31 Furosemide Inj 40 Mg/4 Ml Vial IV PUSH 40 mg BID MAEGAN Administration Furosemide 40 mg 05/15/24 09:00 05/15/24 09:55 Furosemide 40 Mg Tablet PO 40 mg DAILY MAEGAN Administration Ceftriaxone Sodium 1 gm in 50 mls @ 100 mls/hr 05/11/24 16:00 05/15/24 16:02 Rocephin 1 Gm/Ns 50 Ml IVPB 100 mls/hr Q24H MAEGAN Administration Levalbuterol HCl 1.25 mg 05/11/24 21:15 05/15/24 14:11 Levalbuterol Neb 1.25 Mg/3 Ml INHALATION 1.25 mg Q6HRT MAEGAN Administration Metoprolol Succinate 50 mg 05/15/24 09:00 05/15/24 09:56 Metoprolol Succinate Ext Rel 50 Mg Tabcr PO 50 mg QAM MAEGAN Administration Sacubitril/Valsartan 1 tab 05/11/24 09:00 05/15/24 09:55 Sacubitril/Valsartan 24-26 Mg Tablet PO 1 tab Q12HR [facility] Administration Sodium Zirconium Cyclosilicate 5 gm 05/12/24 10:00 05/15/24 09:56 Sodium Zirconium Cyclosilicate 5 Gm Powd.Pack PO 5 gm DAILY@1000 MAEGAN Administration Spironolactone 12.5 mg 05/11/24 09:00 05/12/24 10:49 Spironolactone 12.5 Mg Tablet PO Not Given QAM [facility] Radiology Results: ITS Impressions Chest CTA 05/10/24 14:19 IMPRESSION: 1. No pulmonary embolism. 2. Mediastinal lymphadenopathy. Clinical correlation advised. 3. Bilateral pleural effusion with adjacent atelectasis. Focal area of pneumonia in the left lower lobe laterally. Venous Doppler Study 05/10/24 14:50 IMPRESSION: Negative bilateral lower extremity venous US. No deep vein thrombosis. Bilateral Chisholm's cyst. Chest X-Ray 05/15/24 08:35 IMPRESSION: Bilateral interstitial changes which may indicate pneumonitis versus pulmonary edema. Clinical correlation advised. Labs Labs: Laboratory Results - last 24 hr 05/15/24 04:16 WBC 6.0 RBC 4.02 L Hgb 13.2 L Hct 40.3 L MCV 100.2 H MCH 32.8 MCHC 32.8 RDW 13.7 Plt Count 200 MPV 9.4 Immature Gran % (Auto) 0.2 Neut % (Auto) 59.4 Lymph % (Auto) 24.2 [place] % (Auto) 11.7 H Eos % (Auto) 3.7 Baso % (Auto) 0.8 Lymph # (Auto) 1.44 [place] # (Auto) 0.7 H Eos # (Auto) 0.2 Baso # (Auto) 0.1 Abs Immat Gran (auto) 0.01 Absolute Neuts (auto) 3.5 Absolute Nucleated RBC 0.000 Nucleated RBC % 0.0 Sodium 136 L Potassium 4.5 Chloride 104 Carbon Dioxide 21 L Anion Gap 11 BUN 25 H Creatinine 1.20 Estim Creat Clear Calc 83 Estimated GFR > 60 Glucose 105 Calcium 8.9 Magnesium 2.2 Total Bilirubin 0.7 AST 21 ALT 35 Alkaline Phosphatase 66 NT-Pro-B Natriuret Pep 459 H Total Protein 7.0 Albumin 3.9 Quality VTE Prophylaxis VTE prophylaxis: pharmacologic ordered
[2024-05-16] VITALS (13 sets, daily range): BP systolic 99–131; BP diastolic 53–97; PULSE 75–94; RESP 18–20; TEMP 36.5–36.6; O2SAT 91–96
[2024-05-16] MEDS: HYDROcodone/acetaminophen (*CRX) 5-325 MG TABLET 1 TAB PO (04:36)
[2024-05-16 06:03] LABS: Basophils Absolute Auto 0.1 K/mm3 (0.0-0.1); Basophils Percent Auto 0.8 % (0.2-1.2); Eosinophils Absolute Auto 0.3 K/mm3 (0-0.3); Hematocrit 44.7 % (42.0-52.0); Hemoglobin 14.4 g/dL (14.0-18.0); Immature Granulocyte Absolute 0.01 K/mm3 (0.00-0.031); Immature Granulocyte Percent A 0.2 % (0-0.5); Lymphocytes Percent Auto 32.1 % (18.3-44.2); Mean Corpuscular HGB Conc 32.2 g/dl (32-36); Mean Corpuscular Hemoglobin 32.1 pg (26-34); Mean Corpuscular Volume 99.8 fl (80-100); Mean Platelet Volume 9.5 fl (7.4-10.4); Monocytes Absolute Auto 0.6 K/mm3 (0.1-0.6); Monocytes Percent Auto 9.3 % (2.6-8.5); Neutrophils Absolute Auto 3.3 K/mm3 (1.3-6.7); Neutrophils Percent Auto 53.6 % (45.5-73.1); Platelet Count Result 253 k/mm3 (150-375); Red Blood Count 4.48 M/mm3 (4.6-6.20); Red Cell Distribution Width 13.5 % (11.5-14.5); White Blood Count 6.2 K/mm3 (4.5-10.0)
[2024-05-16] MEDS: LEVALBUTEROL NEB 1.25 MG/3 ML INHALATION (09:19)
[2024-05-16] MEDS: DOXYCYCLINE HYCLATE 100 MG TABLET PO (09:48)
[2024-05-16] MEDS: AMIODARONE HCL 200 MG TABLET PO (09:48)
[2024-05-16] MEDS: FUROSEMIDE 40 MG TABLET PO (09:48)
[2024-05-16] MEDS: EMPAGLIFLOZIN 10 MG TABLET PO (09:49)
[2024-05-16] MEDS: APIXABAN 5 MG TABLET PO (09:49)
[2024-05-16] MEDS: METOPROLOL SUCCINATE EXT REL 50 MG TABCR PO (09:49)
[2024-05-16] MEDS: SACUBITRIL/VALSARTAN 24-26 MG TABLET 1 TAB PO (09:49)
[2024-05-16 11:37] LABS: Alanine Aminotransferase 32 U/L (6-50); Albumin Level 4.2 g/dL (3.5-5.1); Alkaline Phosphatase 67 U/L (38-126); Anion Gap 11 mmol/L (4-12); Aspartate Amino Transferase 25 U/L (17-59); Bilirubin,Total 0.5 mg/dL (0.2-1.3); Blood Urea Nitrogen 26 mg/dL (9-20); Calcium 9.1 mg/dL (8.4-10.2); Carbon Dioxide 21 mmol/L (22-30); Chloride 104 mmol/L (98-107); Estimated CRCL calculation 79 ml/min; Estimated Glomerular Filt Rate 59; Glucose 124 mg/dL (65-110); Magnesium 2.1 mg/dL (1.6-2.3); Potassium 4.7 mmol/L (3.4-5.0); Sodium 136 mmol/L (137-145)
--- NOTE | 2024-05-16 14:10 | P.DS_ITS ---
DS: Admitting Diagnosis Discharge Date 05/16/24 Admitting Diagnosis Shortness of breath/dyspnea DS: Discharge Diagnosis Discharge Diagnosis (1) Non-STEMI (non-ST elevated myocardial infarction): Code(s): I21.4 - Non-ST elevation (NSTEMI) myocardial infarction Status: Acute (2) Unspecified atrial flutter: Code(s): I48.92 - Unspecified atrial flutter Status: Acute (3) Heart failure, unspecified: Code(s): I50.9 - Heart failure, unspecified Status: Acute (4) Community acquired pneumonia: Code(s): J18.9 - Pneumonia, unspecified organism Status: Acute (5) Asthma: Code(s): J45.909 - Unspecified asthma, uncomplicated Status: Acute (6) Hypertension: Code(s): I10 - Essential (primary) hypertension Status: Acute (7) Hyperlipidemia: Code(s): E78.5 - Hyperlipidemia, unspecified Status: Acute Plan Patient had not been seen any provider for over 2 yrs, patient had on going symptoms for 2 weeks, besides atrial flutter with RVR, ECHO showed poor EF, patient was treated in the ER with amiodarone infusion and which slow the HR, patient is treated with lasix, patient is seen by cardio recommending GARFIELD-guided DCCV, chest x-ray is also concerning for pneumonia most likely community- acquired being treated with ceftriaxone and azithromycin, cardiac echo showed moderately reduced ejection fraction 20-25%, patient will need LifeVest prior to discharge, today patient stats feeling better compared to when he arrived denies any chest pain shortness of breath or palpitation, on 05/12 patient had GARFIELD guided cardioversion and it was successful and now patient is NSR, on 05/14 patient seen by pharmacy district manager, patient will need LIFEVEST upon discharge, patine has harsh breath sounds and environmental exposure to dust, recommended to consult pulmonary, Patient was seen by Dr. Ge, suspect patient combination of asthma and COPD due to working in a [employer] environment, ordered albuterol INH and high dose inhale corticosteroid, may need further evaluation with PFT. will continue to monitor will follow-up and further recommendation to follow. DS: Summary Hospital Course Hospital Course: Patient had not been seen any provider for over 2 yrs, patient had on going symptoms for 2 weeks, besides atrial flutter with RVR, ECHO showed poor EF, patient was treated in the ER with amiodarone infusion and which slow the HR, patient is treated with lasix, patient is seen by cardio recommending GARFIELD-guided DCCV, chest x-ray is also concerning for pneumonia most likely community- acquired being treated with ceftriaxone and azithromycin, cardiac echo showed moderately reduced ejection fraction 20-25%, patient will need LifeVest prior to discharge, today patient stats feeling better compared to when he arrived denies any chest pain shortness of breath or palpitation, on 05/12 patient had GARFIELD guided cardioversion and it was successful and now patient is NSR, on 05/14 patient seen by pharmacy district manager, patient will need LIFEVEST upon discharge, patine has harsh breath sounds and environmental exposure to dust, recommended to consult pulmonary, Patient was seen by Dr. Ge, suspect patient combination of asthma and COPD due to working in a [employer] environment, ordered albuterol INH and high dose inhale corticosteroid, may need further evaluation with PFT. will continue to monitor will follow-up and further recommendation to follow. patient clinical symptoms have improved and clinically will discharge patient today. Time Spent with Patient Time attestation: Total time spent providing and/or coordinating discharge services: Exam Narrative: Morbidly obese Patient is comfortable, NAD HEENT: eyes are clear and none icteric LUNGS: Bilateral fair entry with rales and rhonchi HEART: Irregularly irregular ABD: BS+, Soft and nontender Lower extremities: edema SKIN: nonjaundiced Neuro: grossly intact. DS: Data Data Completed and Pending Labs on day of discharge: Labs from last 24 hours 05/16/24 05:35 WBC 6.2 RBC 4.48 L Hgb 14.4 Hct 44.7 MCV 99.8 MCH 32.1 MCHC 32.2 RDW 13.5 Plt Count 253 MPV 9.5 Immature Gran % (Auto) 0.2 Neut % (Auto) 53.6 Lymph % (Auto) 32.1 [place] % (Auto) 9.3 H Eos % (Auto) 4.0 Baso % (Auto) 0.8 Lymph # (Auto) 2.00 [place] # (Auto) 0.6 Eos # (Auto) 0.3 Baso # (Auto) 0.1 Abs Immat Gran (auto) 0.01 Absolute Neuts (auto) 3.3 Absolute Nucleated RBC 0.000 Nucleated RBC % 0.0 Sodium 136 L Potassium 4.7 Chloride 104 Carbon Dioxide 21 L Anion Gap 11 BUN 26 H Creatinine 1.24 Estim Creat Clear Calc 79 Estimated GFR 59 Glucose 124 H Calcium 9.1 Magnesium 2.1 Total Bilirubin 0.5 AST 25 ALT 32 Alkaline Phosphatase 67 Total Protein 7.0 Albumin 4.2 Discharge Plan Discharge Attending physician on discharge: Merry Balderrama Consulting providers: Ravi Andujar; Jeffy Ge; Barbara Carrion; Bipin Weeks; Juan Carlos Reddy; Justin Berry; Andrea Ballard Discharging Clinician: Yamileth Bill Patient Disposition: Home, Self-Care Activity: as tolerated Diet: heart healthy Discharge Instructions: patient to follow discharge care instruction from his pharmacy district manager and manager program and follow up as scheduled, patient to follow up with his primary care provider as soon as possible. patient is instructed if any symptoms worsen to go to nearest ER. Patient Instructions: Antibiotic Form, Apixaban (By mouth), Heart Failure (GEN), Heart Healthy Diet (GEN) Patient Language: Mauritanian Stand Alone Forms: General Discharge Information Follow-up/Referrals: Ravi Andujar MD [Physician] - 2 Weeks UNKNOWN,DOCTOR [Primary Care Provider] - Jeffy Ge MD [Physician] - Discharge Medications: New furosemide 40 mg Tablet 40 mg PO DAILY Qty: 30 0RF amiodarone [Pacerone] 200 mg Tablet 200 mg PO DAILY@0800 Qty: 300 0RF hydrocodone-acetaminophen 5-325 mg Tablet 1 tablet PO Q6H PRN (Reason: Pain Rated 4-6) Qty: 15 0RF levalbuterol HCl 1.25 mg/3 mL Solution For Nebulization 1.25 mg inhalation Q6HRT Qty: 90 0RF doxycycline hyclate 100 mg Tablet 100 mg PO DAILY Qty: 2 0RF Eliquis 5 mg Tablet 5 mg PO Q12HR Qty: 60 0RF Jardiance 10 mg Tablet 10 mg PO DAILY Qty: 30 0RF metoprolol succinate 50 mg Tablet Extended Release 24 Hr 50 mg PO QAM Qty: 30 0RF Entresto 24-26 mg Tablet 1 tab PO Q12HR Qty: 60 0RF spironolactone 25 mg tablet 12.5 mg PO DAILY Qty: 30 0RF Date of admission: 05/11/24 09:37 Primary Care Provider: UNKNOWN,DOCTOR Admitting Provider: Merry Balderrama Attending physician on admission: Yamileth Bill Condition: Stable
== END 2024-05-16 15:17 | disposition home or self-care (01) | DRG 291 ==
LOC: ANHED 14:59 → ANHIMU 18:52
PROVIDERS: Emergency Medicine; Internal Medicine; Internal Medicine Pulmonary Disease; Nurse Practitioner Acute Care; Admitting Provider Hospitalist; Emergency Provider Student in an Organized Health Care Education/Training Program; Visit Provider Family Medicine
PROC: 5A2204Z Restoration of Cardiac Rhythm, Single (ICD-10-PCS; principal; 2024-05-12 14:00)
PROC: B24BZZ4 Ultrasonography of Heart with Aorta, Transesophageal (ICD-10-PCS; CPT 93312; 2024-05-12 14:00)
DX: I50.21 Acute systolic (congestive) heart failure (principal); J18.9 Pneumonia, unspecified organism; I48.92 Unspecified atrial flutter; N17.9 Acute kidney failure, unspecified; R79.89 Other specified abnormal findings of blood chemistry; I11.0 Hypertensive heart disease with heart failure; E78.5 Hyperlipidemia, unspecified; J45.909 Unspecified asthma, uncomplicated; E66.01 Morbid (severe) obesity due to excess calories; Z68.37 Body mass index [BMI] 37.0-37.9, adult; G47.10 Hypersomnia, unspecified; F11.11 Opioid abuse, in remission; F15.11 Other stimulant abuse, in remission; Z77.22 Contact with and (suspected) exposure to environmental tobacco smoke (acute) (chronic)
CPT/HCPCS: 36415; 36600; 71045; 71046; 71275; 80048; 80053; 80061; 82805; 83735; 83880; 84100; 84443; 84484; 85018; 85025; 85610; 85730; 87637; 92960; 93005; 93306; 93312; 93320; 93325; 93970; 94618; 94640; 94762; 96365; 96366; 96367; 96375; 99285; A9270; G0378; J0282; J0696; J1644; J1940; J3475; J7040; Q9967

== ENCOUNTER 2024-07-21 10:49 | Outpatient (CLI) | payer OTHER, SELFPAY ==
--- NOTE | ~2024-07-21 | XR_ITS ---
Left Knee Technique: AP and lateral views were obtained. Clinical History: Pain Findings: No fracture or dislocation is seen. There is medial compartment narrowing. There is moderat e to advanced tricompartment osteophyte formation, with extensive osteophytes at the posterior aspect of the proximal tibia versus possibly loose bodies. Soft tissues are unremarkable. No joint effusion is seen. Impression: Severe degenerative change, as detailed above. Reviewed, dictated and finalized at location M. Impression: Severe degenerative change, as detailed above.
--- NOTE | ~2024-07-21 | XR_ITS ---
Right Knee Technique: AP and lateral views were obtained. Clinical History: Pain Findings: No fracture or dislocation is seen. There is severe medial compartment narrowing with bone- on-bone appearance. There is extensive tricompartmental osteophyte formation.. Soft tissues are unrem arkable. No joint effusion is seen. Impression: Severe tricompartmental osteoarthritis, as detailed above. Reviewed, dictated and finalized at location . Impression: Severe tricompartmental osteoarthritis, as detailed above.
== END 2024-07-21 10:50 | disposition home or self-care (01) ==
LOC: MICIMG 10:51
PROVIDERS: PCP Nurse Practitioner Family; Visit Provider Nurse Practitioner Family
DX: M17.0 Bilateral primary osteoarthritis of knee (principal)
CPT/HCPCS: 73560

== ENCOUNTER 2024-10-06 08:08 | Outpatient (CLI) | payer MEDICARE, SELFPAY ==
--- OUTSIDE RECORDS SUMMARY | 2024-09-22 08:12 | XMS_ITS | Encounter Summary ---
Author Organization [facility] Healthcare Address [address] [place] [address] Care Team Providers Care Supervisor Dry Cleaning Name Role Phone Martha Morgan NP Primary Care Provider [phone] Encounter Details Date Type Department Care Team (Late st Contact Info) Description 08/09/2024 Results Follow-Up [facility] Medical Group Cardiology [address] [place] [address] Maile Warren NP [address] [place] [address] [facility] Heart and Coronary Arteries W Morphology when Performed Social History Tobacco Use Types Packs/Day Years Used Date Smoking Tobacco: Never Passive Smoke Exposure: Never Smokeless Tobacco: Never Alcohol Use Standard Drinks/Week Comments No 0 (1 standard drink = 0.6 oz pur e alcohol) hasnt drank in 2 years AUDIT-C Answer Date Recorded Q1: How often do you have a drink containing alc ohol? Monthly or less 07/11/2024 Q2: How many drinks containi ng alcohol do you have on a typical day when you are drinking? 1 or 2 07/11/2024 Q3: How often do you have si x or more drinks on one occasion? Never 07/11/2024 PHQ-2 Answer Date Recorded PHQ-2 Total Score (If total score is 3 or more points, staff should administer the PHQ-9) 0 07/11/2024 Sex and Gender Information Value Date Recorded Sex Assigned at Not on file Legal Sex Male 3:08 AM [employer] Gender Identity Not on file Sexual Orientation Not on file documented as of this encounter Plan of Treatment Not on file documented as of this encounter Visit Diagnoses Not on filedocumented in this encounter Care Teams Supervisor Dry Cleaning Relationship Specialty Start Date End Date Martha Morgan NP [address] [facility] [address] [place] [address] PCP - General Internal Medicine 07/11/24 documented as of this encounter
--- OUTSIDE RECORDS SUMMARY | 2024-09-22 08:13 | XMS_ITS | Referral Summary ---
Author Organization [facility] Address [address] [place] [address] Care Team Providers Care Occupational Safety Specialist Name Role Phone Martha Morgan JOSE Primary Care Provider [phone] Encounters Date Type Department Care Team Description 09/19/2024 Orders Only [facility] Sports Medicine and Primary Care at [address] [phone] Jeffy Hopper DO 09/19/2024 Telephone [facility] Orthopedics and Sports Medicine [address] [phone] Jeffy Hopper DO Med Refill 09/01/2024 Orders Only [facility] Medical [facility] Sports Medicine and Primary Care at [address] [phone] Jeffy Hopper DO Left knee pain, unspecified chronicity (Primary Dx) 09/01/2024 8:25 AM CDT Ancillary Procedure [facility] Imaging at [address] [phone] Left knee pain, unspecified chronicity 09/01/2024 9:00 AM CDT Office Visit [facility] Sports Medicine and Primary Care at [address] [place] [address] Jeffy Hopper DO Bilateral primary osteoarthritis of knee (Primary Dx); Left knee pain, unspecified chronicity; Right knee pain, unspecified chronicity 08/11/2024 Documentation [facility] Primary Care at [address] [phone] Martha Morgan NP 08/09/2024 Results Follow-Up [facility] Cardiology [address] [place] [address] [place] [phone] Maile Hernandez NP CTA Heart and Coronary Arteries W Morphology when Performed 08/08/2024 1:09 PM CDT - 08/08/2024 11:59 PM CDT Hospital Encounter [facility] ([facility]) [address] [place] [phone] Abnormal nuclear stress test Discharge Disposition: Discharge to home or self care 07/28/2024 1:00 PM CDT Ancillary Procedure [facility] Cardiology at [address] [place] [phone] Dilated cardiomyopathy (HCC) 07/18/2024 8:30 AM CDT Office Visit [facility] Cardiology [address] [place] [address] [place] [phone] Maile Hernandez NP Dilated cardiomyopathy (HCC); Abnormal nuclear stress test; Abnormal findings on diagnostic imaging of heart and coronary circulation; Atrial flutter, paroxysmal (HCC) 07/14/2024 Results Follow-Up [facility] Cardiology [address] [place] [address] [place] [phone] Maile Hernandez NP NM MPI SPECT (Rest and/or Stress) Multiple Studies, Transthoracic Echo (TTE) Limited/Followup 07/14/2024 Results Follow-Up [facility] Primary Care at [address] [phone] Martha Morgan NP Comprehensive metabolic panel, Lipid panel, PSA screen, Additional followed-up results: 8 07/13/2024 9:15 AM CDT Ancillary Procedure [facility] Cardiology [address] [place] [address] [place] [phone] Dilated cardiomyopathy (HCC) 07/12/2024 Telephone [facility] Primary Care at [address] [phone] Martha Morgan NP Test Results 07/11/2024 11:58 AM CDT - 07/11/2024 11:59 PM CDT Hospital Encounter [address] [address] Screening, anemia, deficiency, iron; Primary hypertension; Elevated blood sugar; Mixed hyperlipidemia; Prostate cancer screening; Screening for thyroid disorder; Need for hepatitis C screening test; Need for hepatitis B screening test; Opiate use Discharge Disposition: Discharge to home or self care 07/11/2024 Telephone [facility] Primary Care at [address] [phone] Martha Morgan NP Med Refill 07/11/2024 Telephone [facility] Cardiology [address] [place] [address] Maile Hernandez NP 07/11/2024 12:00 PM CDT Lab [facility] Outpatient Lab at [address] [phone] Hypertension (Primary Dx) 07/11/2024 10:30 AM CDT Office Visit [facility] Primary Care at [address] [phone] Martha Morgan NP BMI 36.0-36.9,adult (Primary Dx); Primary hypertension; Mixed hyperlipidemia; Prostate cancer screening; Screening for thyroid disorder; Screening, anemia, deficiency, iron; Bilateral primary osteoarthritis of knee; Lumbar spondylolysis; Need for hepatitis B screening test; Need for hepatitis C screening test; Elevated blood sugar; ACC/AHA stage C left heart failure with decreased ejection fraction (HCC); Cardiac LV ejection fraction 21-30%; Annual physical exam; Chronic midline low back pain without sciatica; Opiate use; Uses LifeVest defibrillator; Atrial flutter, paroxysmal (HCC) from Last 3 Months Allergies No known active allergies Medications Ventolin HFA 90 mcg/actuation inhaler Inhale 2 puffs every 4 (four) hours as needed 0 Active levalbuterol (XOPENEX) 1.25 mg/3 mL nebulizer solution INHALE 1 VIAL VIA NEBULIZER EVERY 6 HOURS 5 Active metoprolol XL (TOPROL-XL) 100 mg 24 hr tabletIndicatio ns:History of atrial flutter Take 1 tablet (100 mg total) by mouth daily 90 tablet 3 5 05/31/19 26 Active amiodarone (PACERONE) 200 mg tablet Take 1 tablet (200 mg total) by mouth daily 90 tablet 3 5 Active Eliquis 5 mg tablet Take 1 tablet (5 mg total) by mouth every 12 (twelve) hours 180 tablet 3 5 Active furosemide (LASIX) 40 mg tablet Take 1 tablet (40 mg total) by mouth daily 90 tablet 3 5 Active Jardiance 10 mg tablet Take 1 tablet (10 mg total) by mouth daily 90 tablet 3 5 Active rosuvastatin (CRESTOR) 10 mg tablet Take 1 tablet (10 mg total) by mouth daily 30 tablet 11 5 07/15/19 26 Active Dulera 200-5 mcg/actuation inhaler Inhale 2 puffs 2 (two) times a day 5 Active sacubitriL-vals daniele (ENTRESTO) 49-51 mg tabletIndicatio ns:chronic heart failure Take 1 tablet by mouth 2 (two) times a day 180 tablet 3 5 Active spironolactone (ALDACTONE) 25 mg tablet Take 0.5 tablets (12.5 mg total) by mouth daily 45 tablet 1 5 Active HYDROcodone-niyah taminophen (NORCO) 5-325 mg per tabletIndicatio ns:Pain Take 1 tablet by mouth every 12 (twelve) hours as needed for pain 42 tablet 5 Active HYDROcodone-niyah taminophen (NORCO) 5-325 mg per tabletIndicatio ns:Pain Take 1 tablet by mouth 2 (two) times a day as needed for pain 30 tablet 5 09/02/19 25 Discontinu ed(Therapy completed) HYDROcodone-niyah taminophen (NORCO) 5-325 mg per tabletIndicatio ns:Pain Take 1 tablet by mouth every 12 (twelve) hours as needed for pain 42 tablet 09/20/19 25 Discontinu ed(Reorder ) Active Problems Problem Noted Date Diagnosed Date Annual physical exam 07/11/2024 Assessment & Plan (07/11/2024 12:16 PM CDT): He denies any history of nicotine use. Denies any current alcohol use. Uses marijuana and CBD gummies for anxiety and pain. Denies any other recreational drug use. Routine health maintenance objectives discussed and orders placed for any outstanding screening studies. Physical exam performed as above. Routine annual labs obtained and will be reviewed with patient when results available. Encouraged regular physical activity--moderate activity for a total of 150 minutes per week over 3-5 days. Encouraged healthy diet with regular fresh fruits and vegetables limited in processed carbohydrates. ACC/AHA stage C left heart f ailure with decreased ejection fraction 07/11/2024 Assessment & Plan (07/11/2024 12:16 PM CDT): Cardiac LV ejection fraction 21-30% 07/11/2024 Assessment & Plan (07/11/2024 12:16 PM CDT): Lumbar spondylolysis 07/11/2024 Assessment & Plan (07/11/2024 12:16 PM CDT): Patient indicates chronic lower back pain secondary to arthritis. Has not followed with pain management for a while. Previously was discharged from pain management for testing positive for Percocet when he was on oxycodone. I have advised patient that he needs to reestablish with pain management for his chronic pain concerns. We will provide a one time bridge script pending drug test and signing of opioid agreement. Patient has been advised that no other prescriptions will be provided Orders: Ambulatory referral to Pain Management; Future Bilateral primary osteoarthritis of knee 025 Assessment & Plan (09/01/2024 9:26 AM CDT): I had a long discussion with the patient today. While I do think that he has obvious reasons for pain and I am willing to give him some pain medications to use very sparingly this will only be for a short period of time until we can get him to see one of our surgeons for consideration of a bilateral total knee replacement. I think that this will get rid of his pain and actually may help his overall health with his heart conditions as he will be able to be more active if he can do this. I will not continue to give him pain medications over a long period of time, but I am willing to give him this until he can see the surgeon for the surgery itself as this will help control his pain the most. He is willing to do this. Patient will follow up with Dr. Porter for consideration of surgery. Assessment & Plan (07/11/2024 12:16 PM CDT): Orders: Ambulatory referral to Pain Management; Future BMI 36.0-36.9,adult 07/11/2024 Assessment & Plan (07/11/2024 12:16 PM CDT): Discussed the patient's BMI. The BMI is above average. BMI management plan is completed. BMI Follow-up includes: nutrition counseling, exercise counseling and education provided. Mixed hyperlipidemia 07/11/2024 Assessment & Plan (07/11/2024 12:16 PM CDT): Currently patient isn't on any medications. Lipid panel pending. Should likely be on a statin. Orders: Albumin Creatinine Ratio, Urine; Future Hemoglobin A1c; Future Lipid panel; Future Chronic midline low back pain without sciatica 0 07/11/2024 Assessment & Plan (07/11/2024 12:16 PM CDT): Atrial flutter, paroxysmal 07/11/2024 Assessment & Plan (07/11/2024 12:16 PM CDT): Uses LifeVest defibrillator 07/11/2024 Assessment & Plan (07/11/2024 12:16 PM CDT): Hypertension 01/09/2014 Overview (07/11/2024): Assessment & Plan (07/11/2024 12:16 PM CDT): Orders: Albumin Creatinine Ratio, Urine; Future Hemoglobin A1c; Future Comprehensive metabolic panel; Future Resolved Problems Problem Noted Date Diagnosed Date Resolved Date Opioid withdrawal 06/03/2017 07/11/2024 Irritability and anger 01/09/201407/11 Overview (06/05/2016): Irritability and anger Low back pain 01/09/2014 07/11/2024 Overview (06/05/2016): Lumbago Immunizations Immunization Administration Dates Next Due Flucelvax Influenza Quad 04/07/2018 Influenza, Quadrivalent, Spl it, Preservative Free, Intramuscular 12/28/2021,01/02/2017 Influenza, Split 03/15/2013 Influenza, Trivalent, IM (MDV) 03/15/2013 Influenza, Trivalent, Split, Preservative Free, Intradermal 01/09/2014 Social History Tobacco Use Types Packs/Day Years Used Date Smoking Tobacco: Never Passive Smoke Exposure: Never Smokeless Tobacco: Never Tobacco Cessation:Counseling Given: Not Answered Alcohol Use Standard Drinks/Week Comments No 0 [...] on file 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 Gender Identity Not on file Sexual Orientation Not on file Last Filed Vital Signs Vital Sign Reading Time Taken Comments Blood Pressure 101/66 09/01/2024 8:57 AM CDT Pulse 69 08/08/2024 1:56 PM CDT Temperature 37.1 C (98.7 F) 07/11/2024 10:47 AM CDT Respiratory Rate 16 07/11/2024 10:47 AM CDT Oxygen Saturation 95% 07/18/2024 8:36 AM CDT Inhaled Oxygen Concentration - - Weight 129.7 kg (286 lb) 09/01/2024 8:57 AM CDT Height 182.9 cm (6') 09/01/2024 8:57 AM CDT Body Mass Index 38.79 09/01/2024 8:57 AM CDT Plan of Treatment Not on file Procedures Procedure Name Priority Date/Time Associated Diagnosis Comments XR KNEE BILATERAL 4 OR MORE VIEWS Schedule Routine, Read Routine (OP Routine) 09/01/2024 8:51 AM CDT Left knee pain, unspecified chronicity CT HEART MORPHOLOGY AND CORONARY ARTERIES W CONTRAST Schedule Routine, Read Routine (OP Routine) 08/08/2024 2:17 PM CDT Abnormal nuclear stress test TRANSTHORACIC ECHO (TTE) LIMITED/FOLLOW UP WO DOPPLER/CF W CONTRAST Routine 07/28/2024 1:15 PM CDT Dilated cardiomyopathy (HCC) ECG 12-LEAD Routine 07/18/2024 9:00 AM CDT Atrial flutter, paroxysmal (HCC) NM MPI SPECT (REST AND/OR STRESS) MULTIPLE STUDIES Schedule Routine, Read Routine (OP Routine) 07/13/2024 11:13 AM CDT Dilated cardiomyopathy (HCC) OPIATES CONFIRMATION MS, URINE Routine 07/11/2024 11:58 AM CDT Opiate use EGFR Routine 07/11/2024 11:58 AM CDT Primary hypertension Elevated blood sugar DRUGS OF ABUSE SCREEN, URINE WITH REFLEX CONFIRMATION Routine 07/11/2024 11:58 AM CDT Opiate use ALBUMIN CREATININE RATIO, URINE Routine 07/11/2024 11:58 AM CDT Primary hypertension Mixed hyperlipidemia HEMOGLOBIN A1C Routine 07/11/2024 11:58 AM CDT Primary hypertension Mixed hyperlipidemia Elevated blood sugar THYROID FUNCTION CASCADE Routine 07/11/2024 11:58 AM CDT Screening for thyroid disorder PSA SCREEN Routine 07/11/2024 11:58 AM CDT Prostate cancer screening LIPID PANEL Routine 07/11/2024 11:58 AM CDT Mixed hyperlipidemia COMPREHENSIVE METABOLIC PANEL Routine 07/11/2024 11:58 AM CDT Primary hypertension Elevated blood sugar HEPATITIS B SURFACE ANTIGEN Routine 07/11/2024 11:58 AM CDT Need for hepatitis B screening test HEPATITIS C ANTIBODY Routine 07/11/2024 11:58 AM CDT Need for hepatitis C screening test from Last 3 Months Results * XR Knee Bilateral 4 or More Views (09/01/2024 8:51 AM CDT) Anatomical Region Laterality Modality Lower Extremities, Knee Digital Radiography 09/01/2024 2:07 PM CDT Narrative 09/01/2024 2:08 PM CDT EXAM DESCRIPTION: 1. XR KNEE BILATERAL 4 OR MORE VIEWS REASON FOR STUDY: Knee pain, initial exam Pt complains of chronic rian knee pain for many years. No prior injuries. Prior scope on right knee FINDINGS: Four views each knee submitted with comparison 05/16/2019. No acute fracture. Severe medial predominant tricompartmental bilateral knee osteoarthritis with genu varus, right greater than left. Small left and moderate right bilateral knee effusions. Large left posterior loose bodies noted. IMPRESSION: 1. Severe medial predominant tricompartmental bilateral knee osteoarthritis with genu varus, right greater than left. 2. Small left and moderate right bilateral knee effusions. THIS IS AN ELECTRONICALLY VERIFIED FINAL REPORT 09/01/2024 2:08 PM - Electronically signed by Jeffy Ramírez M.D. T: Report ID: [id number] Reading Location: [id number] Procedure Note Jeffy Ramírez MD - 09/01/2024 EXAM DESCRIPTION: 1. XR KNEE BILATERAL 4 OR MORE VIEWS REASON FOR STUDY: Knee pain, initial exam Pt complains of chronic rian knee pain for many years. No prior injuries.Prior scope on right knee FINDINGS: Four views each knee submitted with comparison 05/16/2019. No acute fracture. Severe medial predominant tricompartmental bilateralknee osteoarthritis with genu varus, right greater than left. Small left and moderate right bilateral knee effusions. Large left posterior loosebodies noted. IMPRESSION: 1. Severe medial predominant tricompartmental bilateral kneeosteoarthritis with genu varus, right greater than left. 2. Small left and moderate right bilateral knee effusions. THIS IS AN ELECTRONICALLY VERIFIED FINAL REPORT 09/01/2024 2:08 PM - Electronically signed by Jeffy Ramírez M.D. T: Report ID: [id number] Reading Location: [place] [address] Jeffy Hopper DO IMG XR PROCEDURES Catrina l Result * CTA Heart and Coronary Arteries W Morphology when Performed (08/08/2024 2:17 PM CDT) Anatomical Region Laterality Modality Chest N/A Computed Tomogra phy 08/08/2024 2:43 PM CDT Impressions 08/08/2024 2:43 PM CDT 1. Calcified atherosclerosis in the right coronary artery and circumflex artery resulting in mild stenosis. 2. 536.3 (between the 75th and 90th percentile) . Electronically signed by: Lexis Mahan M.D. Narrative 08/08/2024 2:43 PM CDT EXAMINATION: CORONARY CT ANGIOGRAM HISTORY: Abnormal stress test TECHNIQUE: CT angiography of the coronary arteries was performed after the administration of 94 mL of Optiray 350. Images were also obtained precontrast for the purposes of calcium scoring. 10 mg of metoprolol was administered intravenously prior to the examination. The patient's heart rate and blood pressure at the time of the examination were 69 beats per minute and 108/66 mmHg. Images were transferred to a 3D workstation for additional post-processing. FINDINGS: The coronary arteries are right system dominant. There is no anomalous coronary origin or course. Right coronary system: There is calcified plaque in the mid and distal right coronary artery that results in mild stenosis. Left coronary system: Left main coronary artery: There is no evidence of coronary artery atherosclerosis. Left anterior descending coronary artery: There is no evidence of coronary artery atherosclerosis Circumflex coronary artery: Scattered calcified atherosclerosis results in mild stenosis. The calculated calcium score is 536.3 (between the 75th and 90th percentile) . Other findings: Heart is normal in size. No pericardial effusion. Imaged lungs are normal. Bilevel degenerative disc disease. Procedure Note Lexis Mahan MD - 08/08/2024 EXAMINATION: CORONARY CT ANGIOGRAM HISTORY: Abnormal stress test TECHNIQUE: CT angiography of the coronary arteries was performed after the administration of 94 mL of Optiray 350. Images were also obtained precontrast for the purposes of calcium scoring. 10 mg of metoprolol was administered intravenously prior to the examination. The patient's heart rate and blood pressure at the time of the examination were 69 beats per minute and 108/66 mmHg. Images were transferred to a 3D workstation for additional post-processing. FINDINGS: The coronary arteries are right system dominant. There is no anomalous coronary origin or course. Right coronary system: There is calcified plaque in the mid and distal right coronary artery that results in mild stenosis. Left coronary system: Left main coronary artery: There is no evidence of coronary artery atherosclerosis. Left anterior descending coronary artery: There is no evidence of coronary artery atherosclerosis Circumflex coronary artery: Scattered calcified atherosclerosis results in mild stenosis. The calculated calcium score is 536.3 (between the 75th and 90th percentile) . Other findings: Heart is normal in size. No pericardial effusion. Imaged lungs are normal. Bilevel degenerative disc disease. IMPRESSION: 1. Calcified atherosclerosis in the right coronary artery and circumflex artery resulting in mild stenosis. 2. 536.3 (between the 75th and 90th percentile) . Electronically signed by: Lexis Mahan M.D. us Maile Hernandez NP IMG CT PROCEDURES Final R esult * TRANSTHORACIC ECHO (TTE) LIMITED/FOLLOW UP WO DOPPLER/CF W CONTRAST (07/28/2024 1:15 PM CDT) Estimated EF 55 % CONS SCIMAGE EF Mod BP 54 % CONS SCIMAGE Anatomical Region Laterality Modality Ultrasound 07/28/2024 12:5 9 PM CDT Narrative 07/28/2024 1:50 PM CDT [facility] Cardiology [address] , [address], [place] [address] P:[phone] P:[phone] Echocardiographic Report Patient Name: SHIVA FOSTER : 1960 Study Date: 07/28/2024 12:59:52 PM Gender: M Tech: Location: [facility] Ref Provider: MAILE HERNANDEZ Height(Cm): 188 BSA: 2.6 Weight(Kg): 129.7 Heart Rate: 69 BP: 104 / 70 Quality: Good Order Provider: MAILE HERNANDEZ PROCEDURES: Echocardiographic Report: Limited Transthoracic echocardiogram with 2D, M-Mode imaging and Definity contrast. INDICATIONS: I42.0 Dilated cardiomyopathy. MEASUREMENTS: 2D/MM Value Range EF Mod BP 54 % [ 52 - 72 ] EF Teich MM 54 % [ 52 - 72 ] Estimated EF 55 % LVIDd MM 5.55 cm [ 4.20 - 5.80 ] LVIDs MM 3.97 cm [ 2.50 - 4.00 ] LVPWd MM 1.27 cm [ 0.60 - 1.00 ] IVSd MM 1.58 cm [ 0.60 - 1.00 ] LA Dimension MM 4.52 cm [ 3.00 - 4.00 ] AoR Diam MM 3.29 cm [ 3.10 - 3.70 ] LA Volume Index 27 cc/m2 [ 16 - 34 ] 2D/MM Value Range - FINDINGS: Interpretation Site: Exam was interpreted at [facility]. Left Ventricle: Normal left ventricular size. Definity contrast agent used to visually enhance endocardial wall motion and contractility. Lot Number: [id number]. Mild concentric left ventricular hypertrophy. Ejection fraction is measured at 54 %. Ejection Fraction is visually estimated to be 55 %. Global Longitudinal Strain is -13 %. These segments of the LV are hypokinetic: apical segment. Right Ventricle: Normal right ventricular size. Left Atrium: There is mild enlargement of left atrium. Right Atrium: The right atrium is normal in size. Atrial Septum: Normal atrial septum. Mitral Valve: Normal appearance of the mitral valve. Mild mitral annular calcification. Aortic Valve: Normal appearance of the aortic valve. Tricuspid Valve: Normal appearance of the tricuspid valve. Pulmonic Valve: Pulmonic valve not well visualized. Pericardium: Normal pericardium with no significant pericardial effusion. Aorta: Normal aortic root. IVC: Normal size and normal respiratory collapse consistent with normal right atrial pressure (<5 mmHg). Pulmonary Artery: Normal pulmonary artery size. CONCLUSIONS: Normal left ventricular size. Definity contrast agent used to visually enhance endocardial wall motion and contractility. Lot Number: [id number]. Mild concentric left ventricular hypertrophy. Ejection fraction is measured at 54 %. Ejection Fraction is visually estimated to be 55 %. Global Longitudinal Strain is -13 %. These segments of the LV are hypokinetic: apical segment. There is mild enlargement of left atrium. No significant valvular abnormality, Doppler not requested. Electronically Signed By: Jeffy Casillas MD, [facility] 07/28/2024 1:49:15 PM CDT Procedure Note Jeffy Casillas MD - 07/28/2024 [facility] Cardiology [address], [address], [place] [address] P:[phone] P:[phone] Echocardiographic Report Patient Name: SHIVA FOSTER : 1960 Study Date: 07/28/2024 12:59:52 PM Gender: M Tech: Location: [facility] Ref Provider: MAILE EHRNANDEZ Height(Cm): 188 BSA: 2.6 Weight(Kg): 129.7 Heart Rate: 69 BP: 104 / 70 Quality: Good Order Provider: MAILE HERNANDEZ PROCEDURES: Echocardiographic Report: Limited Transthoracic echocardiogram with 2D, M-Mode imaging and Definitycontrast. INDICATIONS: I42.0 Dilated cardiomyopathy. MEASUREMENTS: 2D/MM Value Range EF Mod BP 54 % [ 52 - 72 ] EF Teich MM 54 % [ 52 - 72 ] Estimated EF 55 % LVIDd MM 5.55 cm [ 4.20 - 5.80 ] LVIDs MM 3.97 cm [ 2.50 - 4.00 ] LVPWd MM 1.27 cm [ 0.60 - 1.00 ] IVSd MM 1.58 cm [ 0.60 - 1.00 ] LA Dimension MM 4.52 cm [ 3.00 - 4.00 ] AoR Diam MM 3.29 cm [ 3.10 - 3.70 ] LA Volume Index 27 cc/m2 [ 16 - 34 ] 2D/MM Value Range - FINDINGS: Interpretation Site: Exam was interpreted at [facility]. Left Ventricle: Normal left ventricular size. Definity contrast agent used to visuallyenhance endocardial wall motion and contractility. Lot Number: [id number]. Mildconcentric left ventricular hypertrophy. Ejection fraction is measured at 54 %. EjectionFraction is visually estimated to be 55 %. Global Longitudinal Strain is -13 %. Thesesegments of the LV are hypokinetic: apical segment. Right Ventricle: Normal right ventricular size. Left Atrium: There is mild enlargement of left atrium. Right Atrium: The right atrium is normal in size. Atrial Septum: Normal atrial septum. Mitral Valve: Normal appearance of the mitral valve. Mild mitral annularcalcification. Aortic Valve: Normal appearance of the aortic valve. Tricuspid Valve: Normal appearance of the tricuspid valve. Pulmonic Valve: Pulmonic valve not well visualized. Pericardium: Normal pericardium with no significant pericardial effusion. Aorta: Normal aortic root. IVC: Normal size and normal respiratory collapse consistent with normal rightatrial pressure (<5 mmHg). Pulmonary Artery: Normal pulmonary artery size. CONCLUSIONS: Normal left ventricular size. Definity contrast agent used to visuallyenhance endocardial wall motion and contractility. Lot Number: [id number]. Mildconcentric left ventricular hypertrophy. Ejection fraction is measured at 54 %. EjectionFraction is visually estimated to be 55 %. Global Longitudinal Strain is -13 %. Thesesegments of the LV are hypokinetic: apical segment. There is mild enlargement of left atrium. No significant valvular abnormality, Doppler not requested. Electronically Signed By: Jeffy Casillas MD, [facility] 07/28/2024 1:49:15 PM CDT Maile Hernandez NP CV ECHO PROCEDURES Final Result * ECG 12 lead (07/18/2024 9:00 AM CDT) 07/18/2024 9:00 AM CDT Maile Hernandez NP ECG ORDERABLES Edited Re sult - Final * NM MPI SPECT (Rest and/or Stress) Multiple Studies (07/13/2024 11:13 AM CDT) Anatomical Region Laterality Modality Body N/A Nuclear Medicine 07/13/2024 8:14 AM CDT Narrative 07/13/2024 5:01 PM CDT [facility] Cardiology [address] [facility] [address], [place] [address] [address] [facility] [address], [place] [address] P:[phone] P:[phone] MPI Imaging Report Patient Name: SHIVA FOSTER : 1960 Study Date: 07/13/2024 8:14:16 AM Gender: M Tech: PABLO ROBINMT Location: [facility] Provider: MAILE HERNANDEZ Height(Cm): 188 BSA: Weight(Kg): 129.7 BMI: 36.7 Order Provider: MAILE HERNANDEZ PHYSICIAN: Referring Physician: Martha Morgan NP. HCG Physician: Ravi Andujar M.D., F.A.C.C. Interpreting Physician: Robles Bhagat M.D. Stress Supervision: Robles Bhagat M.D. PROCEDURES: Pharmacologic SPECT Report: Myocardial perfusion imaging with Tc99M Sestamibi SPECT at rest and stress post regadenoson (Lexiscan) infusion. INDICATIONS: Atrial Flutter. Heart Failure, Hypertension, Shortness Of Breath, Family Hx CAD, High Cholesterol, Smoker, and I42.0 Dilated cardiomyopathy. FINDINGS: Procedural Findings: One day rest/stress was used. Tc99m Sestamibi injected IV at rest was 12.2 millicuries 37.8 millicuries of Tc99M Sestamibi injected IV during Lexiscan stress Lexiscan 0.4mg administered IV over 10 seconds. Pharmacologic stress related symptoms and/or side effects during infusion include nausea. Symptoms were resolved with 100 mg of aminophylline IVP. Baseline heart rate was 73 BPM Maximum Heart Rate Achieved was: 93 BPM Baseline blood pressure was 112/80 mmHg Post Stress Blood Pressure was 128/80 mmHg Termination: Protocol complete. Resting ECG: Normal sinus rhythm. Cannot r/o septal infarct - age uncertain. Post ECG: No diagnostic ST changes. Arrhythmia: rare PVC. Perfusion Findings: Normal perfusion imaging. No definite fixed or reversible defects. Technical quality of study is excellent. Prone imaging was not performed. Left ventricle cavity size at rest is severely enlarged. Left ventricle cavity size with stress is unchanged. A TID of 1.13 was automatically calculated. LV Function: Left ventricular ejection fraction is 49 %. There is mild LV dysfunction. CONCLUSIONS: Left ventricular ejection fraction is 49 %. There is mild LV dysfunction. Myocardial perfusion imaging is normal with no clear evidence of ischemia of infarction. Inferior gut attenuation is seen. Of note, TID: 1.13 which is borderline abnormal which can be seen with balanced ischemia related to multivessel disease. Negative EKG portion of stress test. Electronically Signed By: Eulalio Bhagat MD 07/13/2024 5:00:23 PM CDT Electronically Signed By: Eulalio Bhagat MD 07/13/2024 5:00:23 PM CDT Procedure Note Eulalio Bhagat MD - 07/13/2024 [facility] Cardiology [address] [facility] [address], [place] [address] [address] [facility] [address], [place] [address] P:[phone] P:[phone] MPI Imaging Report Patient Name: SHIVA FOSTER : 1960 Study Date: 07/13/2024 8:14:16 AM Gender: M Tech: [facility] Location: [facility] Provider: MAILE HERNANDEZ Height(Cm): 188 BSA: Weight(Kg): 129.7 BMI: 36.7 Order Provider: MAILE HERNANDEZ PHYSICIAN: Referring Physician: Martha Morgan NP. HCG Physician: Rvai Andujar M.D., F.A.C.C. Interpreting Physician: Robles Bhagat M.D. Stress Supervision: Robles Bhagat M.D. PROCEDURES: Pharmacologic SPECT Report: Myocardial perfusion imaging with Tc99M Sestamibi SPECT at rest and stresspost regadenoson (Lexiscan) infusion. INDICATIONS: Atrial Flutter. Heart Failure, Hypertension, Shortness Of Breath, FamilyHx CAD, High Cholesterol, Smoker, and I42.0 Dilated cardiomyopathy. FINDINGS: Procedural Findings: One day rest/stress was used. Tc99m Sestamibi injected IV at rest was 12.2 millicuries 37.8 millicuries of Tc99M Sestamibi injected IV during Lexiscan stress Lexiscan 0.4mg administered IV over 10 seconds. Pharmacologic stress related symptoms and/or side effects duringinfusion include nausea. Symptoms were resolved with 100 mg of aminophylline IVP. Baseline heart rate was 73 BPM Maximum Heart Rate Achieved was: 93 BPM Baseline blood pressure was 112/80 mmHg Post Stress Blood Pressure was 128/80 mmHg Termination: Protocol complete. Resting ECG: Normal sinus rhythm. Cannot r/o septal infarct - age uncertain. Post ECG: No diagnostic ST changes. Arrhythmia: rare PVC. Perfusion Findings: Normal perfusion imaging. No definite fixed or reversible defects.Technical quality of study is excellent. Prone imaging was not performed. Left ventricle cavitysize at rest is severely enlarged. Left ventricle cavity size with stress is unchanged.A TID of 1.13 was automatically calculated. LV Function: Left ventricular ejection fraction is 49 %. There is mild LVdysfunction. CONCLUSIONS: Left ventricular ejection fraction is 49 %. There is mild LVdysfunction. Myocardial perfusion imaging is normal with no clear evidence of ischemiaof infarction. Inferior gut attenuation is seen. Of note, TID: 1.13 which is borderlineabnormal which can be seen with balanced ischemia related to multivessel disease. Negative EKG portion of stress test. Electronically Signed By: Eulalio Bhagat MD 07/13/2024 5:00:23 PM CDT Electronically Signed By: Eulalio Bhagat MD 07/13/2024 5:00:23 PM CDT Maile Hernandez NP IMG NM PROCEDURES Final R esult * (ABNORMAL) Drugs of Abuse Screen, Urine with Reflex Confirmation (07/11/2024 11:58 AM CDT) Amphetamine, ur Not Detected CutOff 500ng/mL Comment: Interpretive Data - Amphetamines: Samples containing greater than 500 ng/mL d-methamphetamine or other cross-reacting amphetamine compounds are reported as positive. Amphetamine immunoassays are subject to significant false positive rates due to cross-reactivity of non-amphetamine drugs. Confirmatory testing required for definitive results. Current Interpretive Data was last reviewed 2022. Collection date/time has been modified to: 11:58:00. Previous collection date/time: 11:58:00. Barbiturates, ur Not Detected CutOff 200ng/mL [facility] Comment: Interpretive Data - Barbiturates: Samples containing greater than 200 ng/mL secobarbital or other cross-reacting barbiturate compounds are reported as positive. False positive and false negative results are possible. Confirmatory testing required for definitive results. Current Interpretive Data was last reviewed 2022. Collection date/time has been modified to: 11:58:00. Previous collection date/time: 11:58:00. Benzodiazepines, ur Not Detected CutOff 100ng/mL [facility] Comment: Interpretive Data - Benzodiazepines: Samples containing greater than 100 ng/mL nordiazepam or other cross-reacting compounds are reported as positive. False positive and false negative results are possible. Confirmatory testing required for definitive results. Current Interpretive Data was last reviewed 2022. Collection date/time has been modified to: 11:58:00. Previous collection date/time: 11:58:00. Cannabinoids, ur Screen Positive, presumptive (A) CutOff 50 ng/mL [facility] Comment: Interpretive Data - Cannabinoids: Samples containing greater than 50 ng/mL delta-9 THC -COOH or other cross- reacting compounds are reported as positive. False positive and false negative results are possible. Confirmatory testing required for definitive results. Current Interpretive Data was last reviewed 2022. Collection date/time has been modified to: 11:58:00. Previous collection date/time: 11:58:00. Cocaine, ur Not Detected CutOff 150ng/mL [facility] Comment: Interpretive Data - Cocaine: Samples containing greater than 150 ng/mL benzoylecgonine or other cross- reacting compounds are reported as positive. False positive and false negative results are possible. Confirmatory testing required for definitive results. Current Interpretive Data was last reviewed 2022. Collection date/time has been modified to: 11:58:00. Previous collection date/time: 11:58:00. Fentanyl, Ur Not Detected CutOff 5 ng/mL [facility] Comment: Interpretive Data - Fentanyl: Samples containing greater than 5 ng/mL norfentanyl, fentanyl, or other cross-reacting fentanyl compounds are reported as positive. False positive and false negative results are possible. Confirmatory testing required for definitive results. Current Interpretive Data was last reviewed 2023. Collection date/time has been modified to: 11:58:00. Previous collection date/time: 11:58:00. Methadone, ur Not Detected CutOff 300ng/mL [facility] Comment: Interpretive Data - Methadone: Samples containing greater than 300 ng/mL d,l-methadone or other cross-reacting compounds are reported as positive. False positive and false negative results are possible. Confirmatory testing required for definitive results. Current Interpretive Data was last reviewed 2022. Collection date/time has been modified to: 11:58:00. Previous collection date/time: 11:58:00. Opiates, ur Screen Positive, presumptive (A) CutOff 300ng/mL [facility] Comment: Interpretive Data - Opiates: Samples containing greater than 300 ng/mL morphine or other cross-reacting compounds are reported as positive. False positive and false negative results are possible. Confirmatory testing required for definitive results. Current Interpretive Data was last reviewed 2022. Collection date/time has been modified to: 11:58:00. Previous collection date/time: 11:58:00. Oxycodone, ur Not Detected CutOff 100ng/mL [facility] Comment: Interpretive Data - Oxycodone: Samples containing greater than 100 ng/mL oxycodone or other cross-reacting compounds are reported as positive. False positive and false negative results are possible. Confirmatory testing required for definitive results. Current Interpretive Data was last reviewed 2022. Collection date/time has been modified to: 11:58:00. Previous collection date/time: 11:58:00. Phencyclidine, ur Not Detected CutOff 25 ng/mL [facility] Comment: Interpretive Data - Phencyclidine: Samples containing greater than 25 ng/mL phencyclidine or other cross-reacting compounds are reported as positive. False positive and false negative results are possible. Confirmatory testing required for definitive results. Current Interpretive Data was last reviewed 2022. Collection date/time has been modified to: 11:58:00. Previous collection date/time: 11:58:00. Urine Creatinine 186 mg/dL [facility] Comment: Interpretive Data Urine Creatinine: < 10 mg/dL is extremely dilute = or > 10 but < 20 mg/dL is dilute = or > 20 mg/dL is normal Current Interpretive Data was last revised on 2017. Collection date/time has been modified to: 11:58:00. Previous collection date/time: 11:58:00. Urine 07/11/2024 11:5 8 AM CDT 07/13/2024 10:02 AM CDT Narrative NAYA - 07/16/2024 7:20 AM CDT Drug of Abuse screening is performed by immunoassay for medical purposes only. This is not to be used for Pain Management purposes. If Detected, confirmation testing will be performed for Amphetamines, Cocaine, Fentanyl, Methadone, Opiates, Oxycodone or Phencyclidine. Martha Morgan NP LAB URINE ORDERABLES Edited R esult - Final NAY[facility] [address] [place] [address] * eGFR (07/11/2024 11:58 AM CDT) eGFR 62 >=60 mL/min/1. 73 m2 Comment: Interpretive Data Reference Interval Normal >/= 90 mL/min/1.73m2 Mildly decreased* 60 - 89 mL/min/1.73m2 Mildly to moderately decreased 45 - 59 mL/min/1.73m2 Moderately to severely decreased 30 - 44 mL/min/1.73m2 Severely decreased 15 - 29 mL/min/1.73m2 Kidney Failure < 15 mL/min/1.73m2 *Relative to young adult level Estimated glomerular filtration rate is determined by the 2020 CKD-EPI equation recommended by the National Kidney Foundation (A Unifying Approach to GFR Estimation: Recommendations of the NKF-ASK Task Force on Reassessing the Inclusion of Race in Diagnosing Kidney Disease, JASN 2020). The CKD-EPI equation should not be used for patients with unstable renal function and has not been validated in children and those over 70. Current interpretive data was last reviewed 2020. Blood 07/11/2024 11:5 8 AM CDT 07/12/2024 7:29 PM CDT us Martha Morgan NP LAB BLOOD ORDERABLES Final Re sult NAYA [address] [place] [address] * (ABNORMAL) Opiates Confirmation, Urine (07/11/2024 11:58 AM CDT) Codeine Conf, Ur Does Not Confirm CutOff 50 ng/mL Comment: Collection date/time has been modified to: 11:58:00. Previous collection date/time: 11:58:00. Testing performed by: [facility], [address] [place] [address]., [id number] 6- Acetylmorphine Conf, Ur Does Not Confirm CutOff 10 ng/mL NAYA PADRON Comment: Collection date/time has been modified to: 11:58:00. Previous collection date/time: 11:58:00. Testing performed by: [facility], [address] [place] [address]., [address] Hydrocodone Conf, Ur Confirmed Positive(A) CutOff 50 ng/mL N[facility]A PADRON Comment: Collection date/time has been modified to: 11:58:00. Previous collection date/time: 11:58:00. Testing performed by: [facility] [address] [place]., [address] Morphine Conf, Ur Does Not Confirm CutOff 50 ng/mL NAYA PADRON Comment: Collection date/time has been modified to: 11:58:00. Previous collection date/time: 11:58:00. Testing performed by: [facility], [address] [place]., [address] Hydromorphone Conf, Ur Does Not Confirm CutOff 50 ng/mL NAYA PADRON Comment: Collection date/time has been modified to: 11:58:00. Previous collection date/time: 11:58:00. Interpretive Data This test detects the presence or absence of drug compounds using LC Tandem mass spectrometry and is not intended to assess compliance with prescribed medications. While this test is highly specific, false positive and false negative results may occur in very rare circumstances. Contact the laboratory for consultation, if needed. Performance characteristics were determined by the [facility] in a manner consistent with CLIA requirement and has not been cleared or approved by the U.S. Food and Drug Administration. Current interpretive data was last revised 2020. Testing performed by: [facility], [address] [place]., [address] Urine 07/11/2024 11:5 8 AM CDT 07/13/2024 10:02 AM CDT us Martha Morgan CR[employer] SCENE TECHNICIAN LAB URINE ORDERABLES Edited R esult - Final NAYA PADRON [address] [place] [address] * Thyroid Function Barber (07/11/2024 11:58 AM CDT) TSH 3.13 0.30 - 4.20 mcIUnit/mL Blood 07/11/2024 11:5 8 AM CDT 07/12/2024 6:34 PM CDT us [employer] CR[employer] SCENE TECHNICIAN LAB BLOOD ORDERABLES Final Re sult Performing Organization Address [facility]/[place] [address] [address] [facility] [place] [address] * PSA screen (07/11/2024 11:58 AM CDT) PSA-Total 0.79 <=5.40 ng/mL Comment: Interpretive Data AGE SEX REFERENCE INTERVAL 0 minutes-150 years Female None 0 minutes-49 years Male None 50-59 years Male 0-3.90 60-69 years Male 0-5.40 70-79 years Male 0-6.20 80-150 years Male 0-6.20 The Rachel PSA Total assay procedure was used. Results from different manufacturers or methods may not be comparable. Serial testing should be performed using the same method. Current interpretive data last revised 21. Blood 07/11/2024 11:5 8 AM CDT 07/12/2024 6:34 PM CDT [employer] LAB BLOOD ORDERABLES Final Re sult Performing Organization Address City/[facility] [place] [address] [address] [employer] [address] * Hepatitis C antibody Blood (07/11/2024 11:58 AM CDT) Hep C Ab Nonreactive Nonreactive Comment: Interpretive Data Nonreactive: Antibodies to HCV not detected. Does NOT exclude the possibility of recent exposure to HCV. Equivocal: Equivocal for HCV antibodies. Supplemental molecular testing will be automatically performed to determine infection status in accordance with current CDC screening recommendations. Reactive: Positive for HCV antibodies. This may represent current or past HCV infection. Supplemental molecular testing will be automatically performed to determine current infection status in accordance with current CDC screening recommendations. Interpretive data was last revised on 2019. Blood 07/11/2024 11:5 8 AM CDT 07/12/2024 6:34 PM CDT [employer] LAB MICROBIOLOGY - GENERAL OR DERABLES Final Result Performing Organization Address [facility] Co de Phone Number CHRISSAMANTHA PADRON [address] [facility] [place] [employer] [address] * Albumin Creatinine Ratio, Urine (07/11/2024 11:58 AM CDT) Albumin Ur 41.3 mg/L Comment: Collection date/time has been modified to: 11:58:00. Previous collection date/time: 11:58:00. Interpretive Data No reference range established. Current interpretive data was last revised 2018. Creatinine Ur 187.8 mg/dL N[facility]A PADRON Comment: Collection date/time has been modified to: 11:58:00. Previous collection date/time: 11:58:00. Interpretive Data No reference range established. Current interpretive data was last revised 2018. Albumin Creatinine Ratio, Ur 22 1 - 29 mg/g N[facility]A PADRON Comment:Collection date/time has been modified to: 11:58:00. Previous collection date/time: 11:58:00. Urine 07/11/2024 11:5 8 AM CDT 07/12/2024 6:36 PM CDT us Martha Morgan NP LAB URINE ORDERABLES Edited R esult - Final Performing Organization Address [facility] Co de Phone Number NAYA PADRON [address] [place] [address] * Hepatitis B Surface Antigen Blood (07/11/2024 11:58 AM CDT) HepBsAg Nonreactive Nonreactive Blood 07/11/2024 11:5 8 AM CDT 07/12/2024 6:34 PM CDT Martha Morgan NP LAB MICROBIOLOGY - GENERAL OR DERABLES Final Result Performing Organization Address [facility] Co de Phone Number NAYA PADRON [address] Department of Laboratories [place] [phone] * (ABNORMAL) Hemoglobin A1c (07/11/2024 11:58 AM CDT) Hgb A1C 6.4(H) 4.0 - 5.6 % Estimated Average Glucose 137 mg/dL NAYA PADRON Comment: The ADA recommends reporting an estimated Average Glucose (eAG) with all Hemoglobin A1c results using the equation derived from a study of 507 normal and diabetic adults. Minority populations were underrepresented and children were not included. (Diabetes Care 31:3880-8897, 2008). The eAG is not equivalent to a fasting glucose. Blood 07/11/2024 11:5 8 AM CDT 07/12/2024 6:34 PM CDT us Martha Morgan NP LAB BLOOD ORDERABLES Final Re sult NAYA APDRON [address] [place] [address] * (ABNORMAL) Lipid panel (07/11/2024 11:58 AM CDT) Cholesterol 233(H) 30 - 199 mg/dL Comment: Interpretive Data Ages < or = 19 years Acceptable: <170 mg/dL Borderline high: 170-199 mg/dL High: >or= 200 mg/dL Ages > or = 20 years Desirable: <200 mg/dL Borderline high: 200-239 mg/dL High: >or= 240 mg/dL Literature References: 1. Expert Panel on Integrated Guidelines for Cardiovascular Health and Risk Reduction in Children and Adolescents. Pediatrics 2011;128:S213 2. NCEP Expert Panel. Circulation 2004;110:227 Current Interpretive Data was last revised on 2017. Triglycerides 256(H) <=149 mg/dL N[facility]A PADRON Comment: Interpretive Data Ages < or = 9 years Acceptable: <75 mg/dL Borderline high: 75-99 mg/dL High: >or= 100 mg/dL Ages 10 to 20 years Acceptable: <90 mg/dL Borderline high: 90-129 mg/dL High: >or= 130 mg/dL Ages > or = 20 years Desirable: <150 mg/dL Borderline high: 150-199 mg/dL High: 200-499 mg/dL Very high: >or= 499 mg/dL Literature References: 1. Expert Panel on Integrated Guidelines for Cardiovascular Health and Risk Reduction in Children and Adolescents. Pediatrics 2011;128:S213 2. NCEP Expert Panel. Circulation 2004;110:227 Current Interpretive Data was last revised on 2017. HDL 37(L) >=40 mg/dL N[facility]A PADRON Comment: Interpretive Data Ages < or = 19 years Acceptable: >45 mg/dL Borderline low: 40-45 mg/dL Low: <40 mg/dL Ages > or = 20 years Desirable: >or= 60 mg/dL Low: <40 mg/dL Literature References: 1. Expert Panel on Integrated Guidelines for Cardiovascular Health and Risk Reduction in Children and Adolescents. Pediatrics 2011;128:S213 2. NCEP Expert Panel. Circulation 2004;110:227 Current Interpretive Data was last revised on 2017. LDL, calculated 149(H) <=129 mg/dL NAYA PADRON Comment: Interpretive Data Ages < or = 19 years Acceptable: <110 mg/dL Borderline high: 110-129 mg/dL High: >or= 130 mg/dL Ages > or = 20 years Optimal: <100 mg/dL Near optimal: 100-129 mg/dL Borderline high: 130-159 mg/dL High: >160 mg/dL Calculated using the Rey LDL-C estimating equation. This equation was implemented on 2023. Prior to this date LDL-C was estimated using the Friedewald equation. Literature References: 1. Expert Panel on Integrated Guidelines for Cardiovascular Health and Risk Reduction in Children and Adolescents. Pediatrics 2011;128:S213 2. NCEP Expert Panel. Circulation 2004;110:227 3. Rey Vick al. LENIN Cardiol. 2020 June 30;5(5):540-548. doi: 10.1001/jamacardio.2020.0013 Current Interpretive Data was last revised on 2023. Non-HDL Cholesterol 196 mg/dL [facility] Comment: Interpretive Data Ages < or = 19 years Acceptable: <120 mg/dL Borderline high: 120-144 mg/dL High: >145 mg/dL Ages > or = 20 years When triglycerides are >200 mg/dL, Non-HDL cholesterol is a secondary target of therapy with treatment goals that are 30 mg/dL greater than the LDL cholesterol target. Literature References: 1. Expert Panel on Integrated Guidelines for Cardiovascular Health and Risk Reduction in Children and Adolescents. Pediatrics 2011;128:S213 2. NCEP Expert Panel. Circulation 2004;110:227 Current Interpretive Data was last revised on 2017. Chol/HDL ratio 6 [facility] Blood 07/11/2024 11:5 8 AM CDT 07/12/2024 6:34 PM CDT Narrative [facility] - 07/12/2024 8:41 PM CDT Has the patient been fasting for 8 hours or more?->Yes Martha Morgan NP LAB BLOOD ORDERABLES Final Re sult NAYA [address] Department of Laboratories [place] [phone] * Comprehensive metabolic panel (07/11/2024 11:58 AM CDT) Sodium 139 135 - 145 mmol/L Potassium, pl 4.7 3.3 - 4.9 mmol/L [facility] Chloride 102 97 - 110 mmol/L [facility] CH CO2 22 22 - 32 mmol/L [facility] CH Anion gap 15 2 - 15 mmol/L [facility] CH BUN 22 6 - 25 mg/dL [facility] Creatinine 1.30 0.80 - 1.30 mg/dL [facility] Glucose 79 70 - 199 mg/dL [facility] Comment: Interpretive Data Fasting glucose >/= 126 mg/dl is diagnostic for diabetes. Fasting is defined as no caloric intake for at least 8 hours. Fasting glucose between 100 mg/dl to 125 mg/dl is diagnostic of prediabetes. In a patient with classic symptoms of hyperglycemia or hyperglycemic crisis, a random glucose >/= 200 mg/dl is diagnostic for diabetes. In the absence of unequivocal hyperglycemia, results should be confirmed by repeat testing. The classification and Diagnosis of Diabetes Diabetes Care 2021; 46: S19-S40. Current interpretive data was last revised 2022. Calcium 10.1 8.5 - 10.3 mg/dL [facility] Bilirubin, total 0.3 0.1 - 1.2 mg/dL [facility] CH Protein, pl 8.1 6.5 - 8.5 g/dL [facility] CH Albumin 4.6 3.5 - 5.0 g/dL [facility] Alk phos 69 40 - 130 Units/L [facility] ALT 14 7 - 55 Units/L [facility] CH AST 38 10 - 50 Units/L [facility] Blood 07/11/2024 11:5 8 AM CDT 07/12/2024 6:34 PM CDT us Martha Morgan NP LAB BLOOD ORDERABLES Final Re sult NAYA PADRON [address] [place] [address] from Last 3 Months Insurance MEDICARE ADVANTAGE [facility] MEDICARE ADVANTAGE [employer] MEDICARE ADVANTAGE Advance Directives For more information, please contact: [phone] * Full Code (Latest Code Status on File) Date Activated Date Inactivated Comments 06/03/2017 2:00 PM 06/06/2017 11:37 AM Care Teams Occupational Safety Specialist Relationship Specialty Start Date End Date Martha Morgan NP [address] [facility] [address] [place] [address] PCP - General Internal Medicine 07/11/24
--- OUTSIDE RECORDS SUMMARY | 2024-09-22 08:13 | XMS_ITS | Clinical Summary ---
Author Organization [facility] Address [address] [place] [address] Care Team Providers Care Job Developer Name Role Phone Yung Morganssjacky GARCIA Primary Care Provider [phone] Allergies No known active allergies Medications Ventolin [...] as needed for pain 42 tablet 5 09/20/19 25 Discontinu ed(Reorder ) Active Problems [...] back pain 01/09/2014 07/11/2024 Overview (06/05/2016): Lumbago Encounters Date Type Department Care Team Description 09/19/2024 Orders Only [facility] Sports Medicine and Primary Care at [address] [place] [phone] Jeffy Hopper, 09/19/2024 Telephone [facility] Orthopedics and Sports Medicine [address] [facility] [address] [phone] Jeffy Hopper DO Med Refill 09/01/2024 9:00 AM CDT Office Visit [facility] Sports Medicine and Primary Care at [address] [place] [address] Jeffy Hopper DO Bilateral primary osteoarthritis of knee (Primary Dx); Left knee pain, unspecified chronicity; Right knee pain, unspecified chronicity 09/01/2024 8:25 AM CDT Ancillary Procedure [facility] Imaging at [address] [phone] Left knee pain, unspecified chronicity 09/01/2024 Orders Only [facility] Sports Medicine and Primary Care at [address] [place] [phone] Jeffy Hopper DO Left knee pain, unspecified chronicity (Primary Dx) 08/11/2024 Documentation [facility] Primary Care at [address] [phone] Martha Morgan NP 08/09/2024 Results Follow-Up [facility] Cardiology [address] [facility] [address] [place] [phone] Maile Hernandez NP CTA Heart and Coronary Arteries W Morphology when Performed 08/08/2024 1:09 PM CDT - 08/08/2024 11:59 PM CDT Hospital Encounter [facility] ([facility]) [address] [place] [address] Abnormal nuclear stress test Discharge Disposition: Discharge to home or self care 07/28/2024 1:00 PM CDT Ancillary Procedure [facility] Cardiology at [address] [place] [address] Dilated cardiomyopathy (HCC) 07/18/2024 8:30 AM CDT Office Visit [facility] Cardiology [address] [facility] [address] [place] [phone] Maile Hernandez NP Dilated cardiomyopathy (HCC); Abnormal nuclear stress test; Abnormal findings on diagnostic imaging of heart and coronary circulation; Atrial flutter, paroxysmal (HCC) 07/14/2024 Results Follow-Up [facility] Cardiology [address] [facility] [address] [place] [address] Maile Hernandez NP NM MPI SPECT (Rest and/or Stress) Multiple Studies, Transthoracic Echo (TTE) Limited/Followup 07/14/2024 Results Follow-Up [facility] Primary Care at [address] [phone] Martha Morgan NP Comprehensive metabolic panel, Lipid panel, PSA screen, Additional followed-up results: 8 07/13/2024 9:15 AM CDT Ancillary Procedure [facility] Cardiology [address] [place] [phone] Dilated cardiomyopathy (HCC) 07/12/2024 Telephone [facility] Primary Care at [address] [phone] Martha Morgan NP Test Results 07/11/2024 12:00 PM CDT Lab [facility] Outpatient Lab at [address] [phone] Hypertension (Primary Dx) 07/11/2024 11:58 AM CDT - 07/11/2024 11:59 PM CDT Hospital Encounter [address] [address] Screening, anemia, deficiency, iron; Primary hypertension; Elevated blood sugar; Mixed hyperlipidemia; Prostate cancer screening; Screening for thyroid disorder; Need for hepatitis C screening test; Need for hepatitis B screening test; Opiate use Discharge Disposition: Discharge to home or self care 07/11/2024 10:30 AM CDT Office Visit [facility] Primary Care at [address] [phone] Martha Morgan NP BMI 36.0-36.9,adult (Primary Dx); [...] Uses LifeVest defibrillator; Atrial flutter, paroxysmal (HCC) 07/11/2024 Telephone [facility] Primary Care at [address] [phone] Martha Morgan NP Med Refill 07/11/2024 Telephone [facility] Cardiology [address] [place] [address] Maile Hernandez NP from Last 3 Months Immunizations Immunization Administration Dates Next Due Flucelvax Influenza Quad 04/07/2018 Influenza, Quadrivalent, Spl it, Preservative Free, Intramuscular 12/28/2021,01/02/2017 Influenza, Split 03/15/2013 Influenza, Trivalent, IM (MDV) 03/15/2013 Influenza, Trivalent, Split, Preservative Free, Intradermal 01/09/2014 Surgical History Surgery Date Site/Laterality Comments KNEE SURGERY 1997 Right Knee surgery HAND SURGERY Right hand surgery Medical History Medical History Date Comments Hx Other Medical Right hand erasto nstruction 2nd 3rd digit. 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 Gender Identity Not on file Sexual Orientation [...] 09/01/2024 8:57 AM CDT Plan of Treatment Health Maintenance Due Date Last Done Comments Colon Cancer Screening-Colonoscopy 1960 DTaP/Tdap/Td Vaccine (1 - Tdap) 1972 Hepatitis B Screening 08/19/1979 Pneumococcal vaccine <65 (1 of 2 - PCV) 1980 Zoster Vaccine (1 of 2) 08/19/2011 Influenza Vaccine (#1) 2024 2, 04/07/2018, 01/02/2017, Additional history exists Depression Screening 07/11/2025 07/11/2024 Regular Well Visit/Exam 18-64 07/11/2025 07/11/2024 Prostate Cancer Screening-PSA 07/11/2026 07/11/2024 Hepatitis C Screening Completed 07/11/2024 Procedures Procedure Name Priority Date/Time Associated Diagnosis [...] by Jeffy Ramírez M.D. T: Report ID: [id number] Reading Location: [id number] Procedure Note Jeffy Ramírez MD - 09/01/2024 [...] - Electronically signed by Jeffy Ramírez M.D. MF T: Report ID: [id number] Reading Location: [id number] us Jeffy Hopper DO IMG XR PROCEDURES Catrina [...] . Electronically signed by: Lexis Mahan M.D. Maile Hernandez NP IMG CT PROCEDURES Final R esult * TRANSTHORACIC ECHO (TTE) LIMITED/FOLLOW UP WO DOPPLER/CF W CONTRAST (07/28/2024 1:15 PM CDT) Estimated EF 55 % CONS SCIMAGE EF Mod BP 54 % CONS SCIMAGE Anatomical Region Laterality Modality Ultrasound 07/28/2024 12:5 9 PM CDT Narrative 07/28/2024 1:50 PM CDT [facility] Cardiology [address] , [address], [place] [address] P:[phone] P:[phone] Echocardiographic Report Patient Name: SHIVA FOSTER : [...] FINDINGS: Interpretation Site: Exam was interpreted at [facility]. Left Ventricle: Normal left ventricular size. Definity [...] Electronically Signed By: Jeffy Casillas MD, [facility] 07/28/2024 1:49:15 PM CDT Procedure Note Jeffy Casillas MD - 07/28/2024 [facility] Cardiology [address] [facility], [address], [place] [address] P:[phone] P:[phone] Echocardiographic Report Patient Name: SHIVA FOSTER : [...] FINDINGS: Interpretation Site: Exam was interpreted at [facility]. Left Ventricle: Normal left ventricular size. Definity [...] Electronically Signed By: Jeffy Casillas MD, [facility] 07/28/2024 1:49:15 PM CDT Maile Hernandez [...] AM CDT Narrative 07/13/2024 5:01 PM CDT [facility] Cardiology [address] [facility] [address] [address] [address] [facility] [address] [address] P:[phone] P:[phone] MPI Imaging Report Patient Name: SHIVA FOSTER : 1960 Study Date: 07/13/2024 8:14:16 AM Gender: M Tech: [facility] Location: [facility] Provider: MAILE HERNANDEZ Height(Cm): 188 BSA: Weight(Kg): 129.7 BMI: 36.7 Order Provider: MAILE HERNANDEZ PHYSICIAN: Referring Physician: Martha Morgan NP. HCG Physician: Ravi Andujar M.D., F.A.C.C. Interpreting Physician: Rboles Bhagat M.D. Stress Supervision: Robles Bhagat M.D. [...] Procedure Note Eulalio Bhagat MD - 07/13/2024 [facility] Cardiology [address], [place] [address] [address] [facility] [address], [place] [address] P:[phone] P:[phone] MPI Imaging Report Patient Name: SHIVA FOSTER : 1960 Study Date: 07/13/2024 8:14:16 AM Gender: M Tech: [facility] Location: [facility] Provider: MAILE HERNANDEZ Height(Cm): 188 BSA: Weight(Kg): [...] with Reflex Confirmation (07/11/2024 11:58 AM CDT) [facility] Amphetamine, ur Not Detected CutOff 500ng/mL Comment: [...] Barbiturates, ur Not Detected CutOff 200ng/mL NAYA PADRON Comment: Interpretive Data - Barbiturates: Samples containing greater than 200 ng/mL secobarbital or other cross-reacting barbiturate compounds are reported as positive. False positive and false negative results are possible. Confirmatory testing required for definitive results. Current Interpretive Data was last reviewed 2022. Collection date/time has been modified to: 11:58:00. Previous collection date/time: 11:58:00. Benzodiazepines, ur Not Detected CutOff 100ng/mL CERSAMANTHA Comment: Interpretive Data - Benzodiazepines: Samples containing greater than 100 ng/mL nordiazepam or other cross-reacting compounds are reported as positive. False positive and false negative results are possible. Confirmatory testing required for definitive results. Current Interpretive Data was last reviewed 2022. Collection date/time has been modified to: 11:58:00. Previous collection date/time: 11:58:00. Cannabinoids, ur Screen Positive, presumptive (A) CutOff 50 ng/mL CERSAMANTHA Comment: Interpretive Data - Cannabinoids: Samples containing greater than 50 ng/mL delta-9 THC -COOH or other cross- reacting compounds are reported as positive. False positive and false negative results are possible. Confirmatory testing required for definitive results. Current Interpretive Data was last reviewed 2022. Collection date/time has been modified to: 11:58:00. Previous collection date/time: 11:58:00. Cocaine, ur Not Detected CutOff 150ng/mL [facility] C[facility]USSAMANTHA Comment: Interpretive Data - Cocaine: Samples containing greater than 150 ng/mL benzoylecgonine or other cross- reacting compounds are reported as positive. False positive and false negative results are possible. Confirmatory testing required for definitive results. Current Interpretive Data was last reviewed 2022. Collection date/time has been modified to: 11:58:00. Previous collection date/time: 11:58:00. Fentanyl, Ur Not Detected CutOff 5 ng/mL CERSAMANTHA Comment: Interpretive Data - Fentanyl: Samples containing [...] ur Not Detected CutOff 25 ng/mL NAYA Comment: Interpretive Data - Phencyclidine: Samples containing greater than 25 ng/mL phencyclidine or other cross-reacting compounds are reported as positive. False positive and false negative results are possible. Confirmatory testing required for definitive results. Current Interpretive Data was last reviewed 2022. Collection date/time has been modified to: 11:58:00. Previous collection date/time: 11:58:00. Urine Creatinine 186 mg/dL NAYA Comment: Interpretive Data Urine Creatinine: < 10 mg/dL is extremely dilute = or > 10 but < 20 mg/dL is dilute = or > 20 mg/dL is normal Current Interpretive Data was last revised on 2017. Collection date/time has been modified to: 11:58:00. Previous collection date/time: 11:58:00. Urine 07/11/2024 11:5 8 AM CDT 07/13/2024 10:02 AM CDT Oral PERSON CH - 07/16/2024 7:20 AM CDT Drug of Abuse screening is performed by immunoassay for medical purposes only. This is not to be used for Pain Management purposes. If Detected, confirmation testing will be performed for Amphetamines, Cocaine, Fentanyl, Methadone, Opiates, Oxycodone or Phencyclidine. Martha Morgan NP LAB URINE ORDERABLES Edited R esult - Final NAYA [address] [place] [address] * eGFR (07/11/2024 11:58 AM CDT) eGFR [...] BLOOD ORDERABLES Final Re sult NAYA PADRON [address] [place] [address] * (ABNORMAL) Opiates Confirmation, Urine (07/11/2024 11:58 AM CDT) Codeine Conf, Ur Does Not Confirm CutOff 50 ng/mL Comment: Collection date/time has been modified to: 11:58:00. Previous collection date/time: 11:58:00. Testing performed by: [facility], [address] [place] [address]., [id number] 6- Acetylmorphine Conf, Ur Does Not Confirm CutOff 10 ng/mL NAYA PADRON Comment: Collection date/time has been modified to: 11:58:00. Previous collection date/time: 11:58:00. Testing performed by: [facility], [address] [place] [address]., [id number] Hydrocodone Conf, Ur Confirmed Positive(A) CutOff 50 ng/mL NAYA PADRON Comment: Collection date/time has been modified to: 11:58:00. Previous collection date/time: 11:58:00. Testing performed by: [facility], [address] [place]., [address] Morphine Conf, Ur Does Not Confirm CutOff 50 ng/mL NAYA PADRON Comment: Collection date/time has been modified to: 11:58:00. Previous collection date/time: 11:58:00. Testing performed by: [facility], [address] [place] [address]., [address] Hydromorphone Conf, Ur Does Not Confirm CutOff [...] needed. Performance characteristics were determined by the [facility] in a manner consistent with CLIA requirement and has not been cleared or approved by the U.S. Food and Drug Administration. Current interpretive data was last revised 2020. Testing performed by: [facility], [address] [place]., [address] Urine 07/11/2024 11:5 8 AM CDT 07/13/2024 10:02 AM CDT Martha Morgan NP LAB URINE ORDERABLES Edited R esult - Final Performing Organization Address [facility] Co de Phone Number NAYA VITO [address] [facility] [place] [address] * Thyroid Function [place] (07/11/2024 11:58 AM CDT) Pathologist [facility] TSH 3.13 0.30 - 4.20 mcIUnit/mL Blood 07/11/2024 11:5 8 AM CDT 07/12/2024 6:34 PM CDT Martha Morgan NP LAB BLOOD ORDERABLES Final Re sult Performing Organization Address [facility] Co de Phone Number NAYA PADRON [address] [facility] [place] [address] * PSA screen (07/11/2024 11:58 AM CDT) [...] CDT 07/12/2024 6:34 PM CDT Martha Morgan COMPUTER SYSTEMS AUDITOR LAB BLOOD ORDERABLES Final Re sult Performing Organization Address [facility] de Phone Number NAYA [address] [address] [employer] [place] [address] * Hepatitis C antibody Blood (07/11/2024 11:58 AM CDT) Pathologist [facility] Hep C Ab Nonreactive Nonreactive Comment: Interpretive [...] OR DERABLES Final Result Performing Organization Address [facility] de Phone Number [facility] [address] [facility] [place] [address] * Albumin Creatinine Ratio, Urine (07/11/2024 11:58 AM CDT) Pathologist [facility] Albumin Ur 41.3 mg/L Comment: Collection date/time has been modified to: 11:58:00. Previous collection date/time: 11:58:00. Interpretive Data No reference range established. Current interpretive data was last revised 2018. Creatinine Ur 187.8 mg/dL NAYA Comment: Collection date/time has been modified to: 11:58:00. Previous collection date/time: 11:58:00. Interpretive Data No reference range established. Current interpretive data was last revised 2018. Albumin Creatinine Ratio, Ur 22 1 - 29 mg/g NAYA Comment:Collection date/time has been modified to: 11:58:00. Previous collection date/time: 11:58:00. Urine 07/11/2024 11:5 8 AM CDT 07/12/2024 6:36 PM CDT Martha Morgan NP LAB URINE ORDERABLES Edited R esult - Final Performing Organization Address City/[facility]/ZIP Co de Phone Number NAYA [address] [address] [place] [address] * Hepatitis B Surface Antigen Blood (07/11/2024 11:58 AM CDT) HepBsAg Nonreactive Nonreactive Blood 07/11/2024 11:5 8 AM CDT 07/12/2024 6:34 PM CDT Martha Morgan NP LAB MICROBIOLOGY - GENERAL OR DERABLES Final Result Performing Organization Address City/[facility] Co de Phone Number NAYA [address] [address] [place] [address] * (ABNORMAL) Hemoglobin A1c (07/11/2024 11:58 AM CDT) Hgb A1C 6.4(H) 4.0 - 5.6 % Estimated Average Glucose 137 mg/dL NAYA Comment: The ADA recommends reporting an estimated Average Glucose (eAG) with all Hemoglobin A1c results using the equation derived from a study of 507 normal and diabetic adults. Minority populations were underrepresented and children were not included. (Diabetes Care 31:6017-4795, 2008). The eAG is not equivalent to a fasting glucose. Blood 07/11/2024 11:5 8 AM CDT 07/12/2024 6:34 PM CDT us Martha Morgan NP LAB BLOOD ORDERABLES Final Re sult NAYA PADRON [address] [place] [address] * (ABNORMAL) Lipid panel (07/11/2024 11:58 AM [...] NCEP Expert Panel. Circulation 2004;110:227 3. Rey He et al. LENIN Cardiol. 2019June 30;5(5):540-548. doi: 10.1001/jamacardio.2020.0013 Current Interpretive Data was last revised on 2023. Non-HDL Cholesterol 196 mg/dL NAYA PADRON Comment: Interpretive Data Ages [...] last revised on 2017. Chol/HDL ratio 6 NAYA PADRON Blood 07/11/2024 11:5 8 AM CDT 07/12/2024 6:34 PM CDT Narrative NAYA PADRON - 07/12/2024 8:41 PM CDT Has the patient been fasting for 8 hours or more?->Yes Martha Morgan COMPUTER SYSTEMS AUDITOR LAB BLOOD ORDERABLES Final Re sult Performing Organization Address City/[facility]/ZIP Co de Phone Number NAYA [address] [address] [place] [address] * Comprehensive metabolic panel (07/11/2024 11:58 AM CDT) Sodium 139 135 - 145 mmol/L Potassium, pl 4.7 3.3 - 4.9 mmol/L CERNER CH Chloride 102 97 - 110 mmol/L [facility] CO2 22 22 - 32 mmol/L [facility] Anion gap 15 2 - 15 mmol/L [facility] BUN 22 6 - 25 mg/dL [facility] Creatinine 1.30 0.80 - 1.30 mg/dL [facility] Glucose 79 70 - 199 mg/dL CERNER CH Comment: Interpretive Data Fasting glucose >/= 126 [...] CDT 07/12/2024 6:34 PM CDT Martha Morgan COMPUTER SYSTEMS AUDITOR LAB BLOOD ORDERABLES Final Re sult Performing Organization Address [facility]/[place] [address] [place] [address] from Last 3 Months Insurance Critical access hospital[address] MEDICARE ADVANTAGE Advance Directives For more information, please contact: [phone] * Full Code (Latest Code Status on File) Date Activated Date Inactivated Comments 06/03/2017 2:00 PM 06/06/2017 11:37 AM Care Teams Job Developer Relationship Specialty Start Date End Date Martha Morgan NP [address] [facility] [address] [place] [address] PCP - General Internal Medicine 07/11/24
--- OUTSIDE RECORDS SUMMARY | 2024-09-22 08:13 | XMS_ITS | Patient Health Record ---
Author Organization [facility] Address [address] [place] [address] Care Team Providers Care Patent Searcher Name Role Phone Bal Gibbs Primary Care [...] MG 1-2 tablet Orally at bedtime as needed; Duration: 30 day(s) 05/29/2017 Active Thiamine HCl 100 MG 1 tablet Orally Once a day Active Naltrexone HCl 50 MG 1 tablet Orally Onc e a day; Duration: 07 days 05/29/2017 Active Social History Alcohol Screen (Audit-C) Question Answer Notes Did you have a drink containing alcohol in the p ast year? 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
--- OUTSIDE RECORDS SUMMARY | 2024-10-06 08:11 | XMS_ITS | Clinical Summary ---
Author Organization [facility] Address [address] [place] [address] Care Team Providers Care Annealing Furnace Operator Name Role Phone Yung Morganssjacky GARCIA Primary Care Provider [phone] Allergies No known active allergies Medications Ventolin [...] Department Care Team Description 09/19/2024 Orders Only [facility] at [address] [address] Jeffy Hopper DO 09/19/2024 Telephone [facility] [address] [place] [address] [place] [address] Jeffy Hopper DO Med Refill 09/01/2024 9:00 AM CDT Office Visit [facility] at [address] [place] [address] Jeffy Hopper DO Bilateral primary osteoarthritis of knee (Primary Dx); Left knee pain, unspecified chronicity; Right knee pain, unspecified chronicity 09/01/2024 8:25 AM CDT Ancillary Procedure [facility] at [address] [address] Left knee pain, unspecified chronicity 09/01/2024 Orders Only [facility] at [address] [place] [address] Jeffy Hopper DO Left knee pain, unspecified chronicity (Primary Dx) 08/11/2024 Documentation [facility] at [address] [address] Martha Morgan NP 08/09/2024 Results Follow-Up [facility] [address] [place] [address] [address] [place] [address] Maile Hernandez NP CTA Heart and Coronary Arteries W Morphology when Performed 08/08/2024 1:09 PM CDT - 08/08/2024 11:59 PM CDT Hospital Encounter [facility] ([facility]) [address] [place] [address] Abnormal nuclear stress test Discharge Disposition: Discharge to home or self care 07/28/2024 1:00 PM CDT Ancillary Procedure [facility] at [address] [place] [address] Dilated cardiomyopathy (HCC) 07/18/2024 8:30 AM CDT Office Visit [facility] [address] [place] [address] [address] [place] [address] Maile Hernandez NP Dilated cardiomyopathy (HCC); Abnormal nuclear stress test; Abnormal findings on diagnostic imaging of heart and coronary circulation; Atrial flutter, paroxysmal (HCC) 07/14/2024 Results Follow-Up [facility] [address] [place] [address] [address] [place] [address] Maile Hernandez NP NM MPI SPECT (Rest and/or Stress) Multiple Studies, Transthoracic Echo (TTE) Limited/Followup 07/14/2024 Results Follow-Up [facility] at [address] [address] Martha Morgan NP Comprehensive metabolic panel, Lipid panel, PSA screen, Additional followed-up results: 8 07/13/2024 9:15 AM CDT Ancillary Procedure [facility] [address] [place] [address] Dilated cardiomyopathy (HCC) 07/12/2024 Telephone [facility] at [address] [phone] Martha Morgan NP Test Results 07/11/2024 12:00 PM CDT Lab [facility] at [address] [phone] Hypertension (Primary Dx) 07/11/2024 11:58 AM CDT - 07/11/2024 11:59 PM CDT Hospital Encounter [address] [address] Screening, anemia, deficiency, iron; Primary hypertension; Elevated blood sugar; Mixed hyperlipidemia; Prostate cancer screening; Screening for thyroid disorder; Need for hepatitis C screening test; Need for hepatitis B screening test; Opiate use Discharge Disposition: Discharge to home or self care 07/11/2024 10:30 AM CDT Office Visit [facility] at [address] [address] Martha Morgan NP BMI 36.0-36.9,adult (Primary Dx); [...] defibrillator; Atrial flutter, paroxysmal (HCC) 07/11/2024 Telephone [facility] at [address] [address] Martha Morgan NP Med Refill 07/11/2024 Telephone [facility] [address] [place] [address] Maile Hernandez NP from Last [...] on file 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 T: Report ID: [id number] Reading Location: [id number] Procedure Note Jeffy Ramírez MD - 09/01/2024 [...] by Jeffy Ramírez M.D. T: Report ID: [id number] Reading Location: [id number] us Jeffy Hopper DO IMG XR PROCEDURES [...] PM CDT Narrative 07/28/2024 1:50 PM CDT [facility] [address] [facility], [address], [place] [address] P:[phone] P:[phone] Echocardiographic Report Patient Name: SHIVA FOSTER : [...] FINDINGS: Interpretation Site: Exam was interpreted at [facility]. Left Ventricle: Normal left ventricular size. Definity [...] requested. Electronically Signed By: Jeffy Casillas MD, [facility] 07/28/2024 1:49:15 PM CDT Procedure Note Jeffy Casillas MD - 07/28/2024 [facility] [address] [facility], [address], [place] [address] P:[phone] P:[phone] Echocardiographic Report Patient Name: SHIVA FOSTER : [...] FINDINGS: Interpretation Site: Exam was interpreted at [facility]. Left Ventricle: Normal left ventricular size. Definity [...] requested. Electronically Signed By: Jeffy Casillas MD, FACC 07/28/2024 1:49:15 PM CDT Maile Hernandez NP CV ECHO PROCEDURES Final Result * ECG 12 lead (07/18/2024 9:00 AM CDT) 07/18/2024 9:00 AM CDT us Maile Hernandez NP ECG ORDERABLES Edited Re sult - Final * NM MPI SPECT (Rest and/or Stress) Multiple Studies (07/13/2024 11:13 AM CDT) Anatomical Region Laterality Modality Body N/A Nuclear Medicine 07/13/2024 8:14 AM CDT Narrative 07/13/2024 5:01 PM CDT [facility] [address] [facility] [address], [place] [address] [address] [facility] [address], [place] [address] P:[phone] P:[phone] MPI Imaging Report Patient Name: SHIVA FOSTER : 1960 Study Date: 07/13/2024 8:14:16 AM Gender: M [facility] Location: [facility] Provider: MAILE HERNANDEZ Height(Cm): 188 BSA: Weight(Kg): [...] Procedure Note Eulalio Bhagat MD - 07/13/2024 [facility] [address] [facility] [address], [place] [address] [id number], [place] [address] P:[phone] P:[phone] MPI Imaging Report Patient Name: SHIVA FOSTER : 1960 Study Date: 07/13/2024 8:14:16 AM Gender: M Tech: [facility] Location: [facility] Provider: MAILE HERNANDEZ Height(Cm): 188 BSA: Weight(Kg): [...] MD 07/13/2024 5:00:23 PM CDT Maile Hernandez MANAGER BASKETBALL IMG NM PROCEDURES Final R esult * [...] 11:58:00. Cocaine, ur Not Detected CutOff 150ng/mL CERSAMANTHA Comment: Interpretive Data - Cocaine: Samples containing [...] 11:58:00. Methadone, ur Not Detected CutOff 300ng/mL CERSAMANTHA Comment: Interpretive Data - Methadone: Samples containing [...] collection date/time: 11:58:00. Urine Creatinine 186 mg/dL [facility] Comment: Interpretive Data Urine Creatinine: < 10 mg/dL is extremely dilute = or > 10 but < 20 mg/dL is dilute = or > 20 mg/dL is normal Current Interpretive Data was last revised on 2017. Collection date/time has been modified to: 11:58:00. Previous collection date/time: 11:58:00. Urine 07/11/2024 11:5 8 AM CDT 07/13/2024 10:02 AM CDT Narrative NAYA Santana 07/16/2024 7:20 AM CDT Drug of Abuse screening is performed by immunoassay for medical purposes only. This is not to be used for Pain Management purposes. If Detected, confirmation testing will be performed for Amphetamines, Cocaine, Fentanyl, Methadone, Opiates, Oxycodone or Phencyclidine. us Martha Morgan MANAGER BASKETBALL LAB URINE ORDERABLES Edited R esult - Final CHRISSAMANTHA PADRON [address] [place] [address] * eGFR (07/11/2024 11:58 AM [...] 07/12/2024 7:29 PM CDT us Martha Morgan MANAGER BASKETBALL LAB BLOOD ORDERABLES Final Re sult NAYA PADRON [address] [place] [address] * (ABNORMAL) Opiates Confirmation, Urine (07/11/2024 11:58 AM CDT) Codeine Conf, Ur Does Not Confirm CutOff 50 ng/mL Comment: Collection date/time has been modified to: 11:58:00. Previous collection date/time: 11:58:00. Testing performed by: [facility], [address] [place] [address]., [address] 6- Acetylmorphine Conf, Ur Does Not Confirm CutOff 10 ng/mL NAYA PADRON Comment: Collection date/time has been modified to: 11:58:00. Previous collection date/time: 11:58:00. Testing performed by: [facility], [address] [place] [address]., [address] Hydrocodone Conf, Ur Confirmed Positive(A) CutOff 50 ng/mL NAYA PADRON Comment: Collection date/time has been modified to: 11:58:00. Previous collection date/time: 11:58:00. Testing performed by: [facility], [address] [place]., [address] Morphine Conf, Ur Does Not Confirm CutOff 50 ng/mL NAYA PADRON Comment: Collection date/time has been modified to: 11:58:00. Previous collection date/time: 11:58:00. Testing performed by: [facility], [address] [place] [address]., [address] Hydromorphone Conf, Ur Does Not Confirm CutOff [...] needed. Performance characteristics were determined by the [facility] in a manner consistent with CLIA requirement and has not been cleared or approved by the U.S. Food and Drug Administration. Current interpretive data was last revised 2020. Testing performed by: [facility], [address] [place]., [address] Urine 07/11/2024 11:5 8 AM CDT 07/13/2024 10:02 AM CDT Martha Cathy MANAGER BASKETBALL LAB URINE ORDERABLES Edited R esult - Final Performing Organization Address City/[facility]/ZIP Co de Phone Number NAYA PADRON [address] [employer] [place], [place] [phone] * Thyroid Function [place] (07/11/2024 11:58 AM CDT) TSH 3.13 0.30 - 4.20 mcIUnit/mL Blood 07/11/2024 11:5 8 AM CDT 07/12/2024 6:34 PM CDT Martha Cathy GARCIA LAB BLOOD ORDERABLES Final Re sult Performing Organization Address [facility] Co de Phone Number NAYA PADRON [address] [employer] [place], [place] [phone] * PSA screen (07/11/2024 11:58 AM CDT) [...] ORDERABLES Final Re sult Performing Organization Address [facility] Co de Phone Number NAYA PADRON [address] Department [place] [address] * Hepatitis C antibody Blood (07/11/2024 11:58 AM CDT) Pathologist [facility] Hep C Ab Nonreactive Nonreactive Comment: Interpretive [...] 8 AM CDT 07/12/2024 6:34 PM CDT Result [facility] Martha Morgan NP LAB MICROBIOLOGY - GENERAL OR DERABLES Final Result Performing Organization Address [facility] Co de Phone Number NAYA [address] [address] Department [place] [address] * Albumin Creatinine Ratio, Urine (07/11/2024 11:58 AM CDT) Pathologist [facility] Albumin Ur 41.3 mg/L Comment: Collection date/time [...] CDT 07/12/2024 6:36 PM CDT Martha Morgan MANAGER BASKETBALL LAB URINE ORDERABLES Edited R esult - Final Performing Organization Address [facility] Co de Phone Number NAYA [address] Department of [employer] [place], [place] [phone] * Hepatitis B Surface Antigen Blood (07/11/2024 11:58 AM CDT) HepBsAg Nonreactive Nonreactive Blood 07/11/2024 11:5 8 AM CDT 07/12/2024 6:34 PM CDT Martha Morgan NP LAB MICROBIOLOGY - GENERAL OR DERABLES Final Result Performing Organization Address [facility] de Phone Number [facility] [address] [address] Department of [employer] [place], [place] [phone] * (ABNORMAL) Hemoglobin A1c (07/11/2024 11:58 AM CDT) Hgb A1C 6.4(H) 4.0 - 5.6 % Estimated Average Glucose 137 mg/dL NAYA Comment: The ADA recommends reporting an estimated Average Glucose (eAG) with all Hemoglobin A1c results using the equation derived from a study of 507 normal and diabetic adults. Minority populations were underrepresented and children were not included. (Diabetes Care 31:5459-9893, 2008). The eAG is not equivalent to a fasting glucose. Blood 07/11/2024 11:5 8 AM CDT 07/12/2024 6:34 PM CDT Martha Morgan NP LAB BLOOD ORDERABLES Final Re sult NAYA [address] [facility] [place] [address] * (ABNORMAL) Lipid panel (07/11/2024 11:58 AM [...] revised on 2017. Chol/HDL ratio 6 NAYA Blood 07/11/2024 11:5 8 AM CDT 07/12/2024 6:34 PM CDT Narrative NAYA - 07/12/2024 8:41 PM CDT Has the patient been fasting for 8 hours or more?->Yes us Martha Morgan NP LAB BLOOD ORDERABLES Final Re sult NAYA [address] [place] [address] * Comprehensive metabolic panel (07/11/2024 11:58 AM [...] BLOOD ORDERABLES Final Re sult NAYA PADRON [address] Department [place] [address] from Last 3 Months Insurance [facility] Address: [address] [place] [phone] [facility] Address: [address] [place] [phone] MEDICARE ADVANTAGE [facility] Address: [address] [address] [place] [address] Advance Directives For more information, please contact: [phone] * Full Code (Latest Code Status on File) Date Activated Date Inactivated Comments 06/03/2017 2:00 PM 06/06/2017 11:37 AM Care Teams Annealing Furnace Operator Relationship Specialty Start Date End Date Martha Morgan NP [address] [facility] [address] [place] [address] PCP - General Internal Medicine 07/11/24
--- OUTSIDE RECORDS SUMMARY | 2024-10-06 08:11 | XMS_ITS | Encounter Summary ---
Author Organization [facility] Healthcare Address [address] [place] [address] Care Team Providers Care Ceo And Founder Name Role Phone Fitz Cardona Primary Care Provider + Martha Morgan NP Primary Care Provider [phone] Encounter Details Date Type Department Care Team (Late st Contact Info) Description 05/11/2024 Orders Only [facility] Health Information Management [address] [place] [address] Scanning, Provider Social History Tobacco Use Types Packs/Day Years Used Date Smoking Tobacco: Never Smokeless Tobacco: Never Alcohol Use Standard Drinks/Week Comments No 0 (1 standard drink = 0.6 oz pur e alcohol) hasnt drank in 2 years Sex and Gender Information Value Date Recorded Sex Assigned at Not on file 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 Gender Identity Not on file Sexual Orientation Not on file documented as of this encounter Plan of Treatment Not on file documented as of this encounter Procedures Procedure Name Priority Date/Time Associated Diagnosis Comments CARDIOLOGY DOCUMENT SCAN 05/11/2024 SCAN - RADIOLOGY/IMAGING 05/10/2024 documented in this encounter Results * Cardiology Document Scan (05/11/2024) Anatomical Region Laterality Modality Other us Provider Scanning CV CARDIAC SERVICES PROCEDURES Final Result * SCAN - RADIOLOGY/IMAGING (05/10/2024) Anatomical Region Laterality Modality Other us Provider Scanning Edited Result - Final documented in this encounter Visit Diagnoses Not on filedocumented in this encounter Care Teams Ceo And Founder Relationship Specialty Start Date End Date Fitz Cardona PA [facility] [place] [address] PCP - General Internal Medicine 04/11/19 07/10/24 Martha Morgan NP [address] [address] PCP - General Internal Medicine 07/11/24 documented as of this encounter
--- OUTSIDE RECORDS SUMMARY | 2024-10-06 08:11 | XMS_ITS | Encounter Summary ---
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
--- OUTSIDE RECORDS SUMMARY | 2024-10-06 08:11 | XMS_ITS | Patient Health Record ---
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
--- NOTE | 2024-10-28 22:41 | P.SLEEP_ITS ---
Sleep Study Date of Study: 10/06/24 Ordering Provider: Jeffy Ge MD Interpreting Physician: Tahmina Helms MD Sleep Study Type: Polysomnogram Height: 1.88 m Weight: 131.088 kg Body Mass Index: 37.0 Neck Circumference (inches): 20 [place]: 7 Reason for Sleep Study Hypersomnolence Sleep History Hill Foster is a 64-year-old man with daytime hypersomnia. He did not complete the sleep questionnaire, so details about his sleep habits are not available. His pulmonary note from dr Ge shows that he had an overnight oximetry on room air 07/29/2024 showing recording duration 5 hours and 28 minutes. Basal saturation 90.7%. High saturation 98%. Low saturation 65%. Time with saturation less than or equal to 88% was 42 minutes. Oxygen desaturation index is 20. dr Ge recommended 2 L nasal cannula at night and repeat overnight oximetry on 2 L. The patietn wanted to wait until his sleep study was completed before deciding whether or not he wanted supplemental o2 at night. Past medical history includes: childhood allergic rhinitis, HTN, HLD, kidney stones, history of pneumonia and PE 2021 on anticoagulation for 6 months and self discontinued, previous illicit substance abuse, daytime hypersomnia and asthma. [facility] Past Medical History Medical History Atrial flutter with rapid ventricular response Acute decompensated heart failure Asthma Arthritis Kidney stones Hyperlipidemia Hypertension Surgical History Surgical History H/O knee surgery Family History Family History Father History of heart artery stent Social History Social History Smoking status: Former smoker Smokeless tobacco user: other Additional smoking assessment comments: Marijuana Alcohol intake: former Substance use: former Do You Feel Safe in your Home?: Yes Lack of Transportation: No Lack of Food: Never True Current Housing: I Have Housing Concerned About Future Housing: No Difficulty Paying Gas/Electric Bills: No Difficulty Paying for Meds: No Currently Unemployed: No Education: Trade/Vocational Certificate Difficulty w/ Childcare or Family Care: No Spiritual care concerns: No Medications Home Medications ?Medication ?Instructions ?Recorded ?Confirmed ?Type amiodarone 200 mg tablet (Pacerone) 200 mg PO DAILY@08 00 #300 tabs 05/16/24 07/05/24 Rx apixaban 5 mg tablet (Eliquis) 5 mg PO Q12HR #60 tabs 05/16/24 07/05/24 Rx empagliflozin 10 mg tablet 10 mg PO DAILY #30 tabs 07/05/24 Rx (Jardiance) furosemide 40 mg tablet 40 mg PO DAILY #30 tabs 04/3007/05/24 Rx metoprolol succinate 50 mg 50 mg PO QAM #30 tabs 05/1607/05/24 Rx tablet,extended release 24 hr sacubitril 24 mg-valsartan 26 mg 1 tab PO Q12HR #60 ta bs 05/16/24 07/05/24 Rx tablet (Entresto) spironolactone 25 mg tablet 12.5 mg (1/2 x 25 mg) PO D AILY #30 05/16/24 07/05/24 Rx tabs levalbuterol HCl 1.25 mg/3 mL 1.25 mg (3 mL) inhalatio n Q6HRT 06/08/24 07/05/24 Rx solution for nebulization #90 mL mometasone-formoterol HFA 200 2 puff inhalation BID #1 3 grams 06/10/24 06/10/24 Rx mcg-5 mcg/actuation aerosol inhaler eszopiclone 2 mg tablet 2 mg PO QHS #1 tablet Rx levalbuterol tartrate 45 2 inh inhalation Q6H PRN leonel rtness 10/21/24 10/21/24 Rx mcg/actuation aerosol inhaler of breath or wheezing #1 5 grams Sleep Procedure A full night polysomnogram using the Fast Orientation multi-channel system recorded the standard physiologic parameters including EEG, EOG, submentalis EMG, anterior tibialis EMG, EKG, body position, nasal and oral airflow using nasal pressure sensor and thermistor. Respiratory parameters of chest and ab dominal movements were recorded with Respiratory Inductance Plethysmography belts. Oxygen saturation was recorded by pulse oximetry. Video monitoring was also performed. Sleep stages, periodic limb movements, and EEG arousals were scored in 30 second epochs according to the criteria of the AASM Scoring Manual. The Apnea-Hypopnea Index was calculated using CMS guidelines for definition of hypopnea while scoring respiratory events. The patient self-administered melatonin at the beginning of the study.. He met criteria for split night study, his baseline apnea-hypopnea index was 14.1 and he desaturated to 82% but he told the donor floor technician he did not want to start CPAP. This was conducted as a full night nocturnal polysomnogram. Sleep Architecture The total recording time was 452.0 minutes. The total sleep time was 396.5 minutes. Sleep latency was 0.9 minutes. REM latency was 87.0 minutes. Sleep efficiency was 87.7%. The patient had 36 awakenings for an awakening index of 5.4. Wake after sleep onset time was 55.0 minutes. The patient spent 31.0 minutes, 7.8% of total sleep time in Stage N1. The patient spent 295.0 minutes, 74.4% in Stage N2. The patient spent 9.0 minutes, 2.3% in Stage N3. The patient spent 61.5 minutes, 15.5% in Stage REM sleep. Respiratory Analysis The patient had 75 hypopneas, 4 obstructive apneas, no mixed apneas, and 14 central apneas for an overall Apnea Hypopnea Index of 14.1. The REM Apnea Hypopnea Index was 22.4. The NREM Apnea Hypopnea Index was 13.4. The patient had a Central Apnea Hypopnea Index of 2.1. There were no Respiratory Effort Related Arousals.. The Respiratory Disturbance Index is 16.3 events per hour. There was no evidence of Gustavo-Christian Respirations. Arousals There were 128 total arousals for an arousal index of 19.4. There were 60 spontaneous arousals for an index of 9.1. There were 10 arousals due to respiratory events for an index of 1.5. There were 55 arousals due to periodic limb movements for an index of 8.3. There were 7 arousals due to isolated limb movements for an index of 1.1. Periodic Limb Movements The patient had 27 isolated limb movements with an index of 4.1. The patient had 407 periodic limb movements with an index of 61.6. Patient had a total of 434 limb movements with a total limb movement index of 65.7. Oximetry Data The patient had an average oxygen saturation of 89.4% in sleep with a minimum oxygen saturation of 82% and a maximum oxygen saturation of 97%. The patient had 104 oxygen desaturations that were 4% or greater resulting in an Oxygen Desaturation Index of 15.7. The patient spent 98.7 minutes, 22.2% of total sleep time with an oxygen saturation below 88%. Snoring Profile Snoring was mild. Cardiac Profile The EKG showed normal sinus rhythm, average pulse rate of 60.3 bpm with a minimum pulse of rate of 49 bpm and a maximum pulse rate of 87 bpm. No arrhythmias noted. EEG Profile Unremarkable, no evidence of seizures. Assessment and Plan Assessment and Plan (1) Obstructive sleep apnea: Code(s): G47.33 - Obstructive sleep apnea (adult) (pediatric) Status: Acute Assessment and Plan: This basic nocturnal polysomnogram on 10/06/2024 shows mild obstructive sleep apnea, apnea-hypopnea index is 14.1, higher in the supine position, supine AHI is 17.3 and the nonsupine AHI is 13.6. He desaturated to 82% and spent 98.7 minutes, 22.2% of this study with a saturation below 88%. He did not want to use CPAP during the study. He is a candidate for PAP therapy due to his elevated apnea hypopnea index and prolonged hypoxemia, 22.2% of the night or 98.7 minutes below 88%. He has a medical co-morbidity of heart failure which allows him to have treatment with an AHI of 14.1. He had a central AHI of 2.1, within the normal range. Since he declined a CPAP titration during the study, he may be able to use autoPAP. I recommend that this patient be prescribed Resmed AirSense 11 AutoPAP 5-15 cm H2O, CPAP mask/filters/tubing and humidifier chamber. This should be used with all episodes of sleep. Compliance should be reviewed within 31-90 days of starting therapy for usage greater than 4 hours per night greater than 70% of the nights. The patient should be asked about symptoms such as excessive daytime sleepiness, quality of sleep, decreased nocturia, increased mental functioning such as memory, mood, and concentration. Patient had excessive limb movements, a periodic limb movement index of 61.6 however he did not have excessive arousals due to this, the periodic limb movement arousal index was 8.3. Treating his obstrucive sleep apnea may reduce the number of limb movements during sleep. BMI is 37. Weight management is advised. Clinical data suggests that weight loss of 10% can reduce the severity of respiratory events and snoring and improve AHI by as much as 25%. Data The data obtained during this sleep study is adequate for interpretation. Certification This sleep study has been reviewed by a board certified sleep medicine physician.
[2024-11-03 23:18] VITALS: BMI 37.0
== END 2024-10-07 07:10 | disposition home or self-care (01) ==
PROVIDERS: PCP Nurse Practitioner Family; Visit Provider Internal Medicine Pulmonary Disease
DX: G47.10 Hypersomnia, unspecified (principal); G47.33 Obstructive sleep apnea (adult) (pediatric)
CPT/HCPCS: 95810